=== PATIENT | female | born 1945 | race Caucasian/White ===

== ENCOUNTER 2016-03-19 09:42 | Inpatient (IN) | payer MEDICARE, BC ==
--- NOTE | 2016-03-19 14:31 | ED ---
Psych HPI - General Chief Complaint: Psychiatric Symptoms Stated Complaint: mental health Time Seen by Provider: 03/19/16 13:55 Source: patient, RN notes reviewed Mode of arrival: wheelchair - History of Present Illness Initial Comments: Patient is a 70-year-old female presents emergency room for psych evaluation. Patient states she has a history of "mental breakdowns". Patient states she is currently in the middle of having one. Patient states she called over to Dr. Bowen's office and she was advised to come to the emergency room for possible psych admission. Patient states she takes Abilify as directed and Seroquel at bedtime. Patient states she takes Ativan as needed. Patient states that she feels unsafe at home. Patient denies suicidal or homicidal ideations. Patient denies any medical history. Patient denies chest pain, shortness of breath, headache, dizziness, fevers, chills. - Related Data Home Medications Medication Instructions Recorded Confirmed Cholecalciferol [Vitamin D3] 5,000 unit PO DAILY 01/09/16 03/19/16 Enalapril [Vasotec] 20 mg PO DAILY 01/09/16 03/19/16 Furosemide [Lasix] 20 mg PO DAILY@1200 01/09/16 03/19/16 ARIPiprazole [Abilify] 10 mg PO DAILY 03/19/16 03/19/16 ARIPiprazole [Abilify] 15 mg PO HS 03/19/16 03/19/16 Sennosides-Docusate Sodium 1 tab PO BID 03/19/16 03/19/16 [Senokot-S] Previous Rx's Medication Instructions Recorded LORazepam [Ativan] 1 mg PO BID #60 tab 01/24/16 QUEtiapine FUMARATE [SEROquel] 600 mg PO HS #60 tablet 01/24/16 Allergies Allergy/AdvReac Type Severity Reaction Status Date / Time No Known Allergies Allergy Verified 03/19/16 14:43 Review of Systems ROS Statement: Those systems with pertinent positive or pertinent negative responses have been documented in the HPI. ROS Other: All systems not noted in ROS Statement are negative. Past Medical History Past Medical History: Hypertension History of Any Multi-Drug Resistant Organisms: None Reported Past Surgical History: No Surgical Hx Reported Past Psychological History: Anxiety, Depression Smoking Status: Never smoker Past Alcohol Use History: None Reported Past Drug Use History: None Reported General Exam - General Exam Comments Initial Comments: Sitting exam room, anxious. General appearance: alert, anxious Head exam: Present: atraumatic, normocephalic, normal inspection Eye exam: Present: normal appearance ENT exam: Present: normal exam Neck exam: Present: normal inspection Respiratory exam: Present: normal lung sounds bilaterally. Absent: respiratory distress Cardiovascular Exam: Present: normal rhythm, tachycardia, normal heart sounds Extremities exam: Present: normal inspection Back exam: Present: normal inspection Neurological exam: Present: alert, oriented X3 Psychiatric exam: Present: normal affect, anxious Expanded Focused psych exam: Present: paranoid, restlessness Skin exam: Present: warm, dry, intact, normal color. Absent: rash Course Vital Signs 03/19/16 03/19/16 03/19/16 10:00 17:10 18:37 Temperature 97.9 F 97.6 F 97.6 F Pulse Rate 105 H 93 75 Respiratory 16 16 16 Rate Blood Pressure 144/78 139/68 140/76 O2 Sat by Pulse 94 L 96 97 Oximetry Medical Decision Making - Medical Decision Making Patient is a 70-year-old female presents to the emergency room for evaluation. Labs show no acute findings. Patient denies any urinary symptoms. Will culture urine. Patient evaluated by psych and meets admission criteria. - Lab Data Result diagrams: 03/19/16 15:10 03/19/16 15:10 Lab Results 03/19/16 03/19/16 03/19/16 Range/Units 15:00 15:10 15:10 WBC 8.4 (3.8-10.6) k/uL RBC 4.15 (3.80-5.40) m/uL Hgb 12.2 (11.4-16.0) gm/dL Hct 36.5 (34.0-46.0) % MCV 88.0 (80.0-100.0) fL MCH 29.4 (25.0-35.0) pg MCHC 33.4 (31.0-37.0) g/dL RDW 15.0 (11.5-15.5) % Plt Count 310 (150-450) k/uL Neutrophils % 65 % Lymphocytes % 23 % Monocytes % 6 % Eosinophils % 2 % Basophils % 1 % Neutrophils # 5.4 (1.3-7.7) k/uL Lymphocytes # 1.9 (1.0-4.8) k/uL Monocytes # 0.5 (0-1.0) k/uL Eosinophils # 0.2 (0-0.7) k/uL Basophils # 0.1 (0-0.2) k/uL Sodium 143 (137-145) mmol/L Potassium 4.1 (3.5-5.1) mmol/L Chloride 107 (98-107) mmol/L Carbon Dioxide 23 (22-30) mmol/L Anion Gap 13 mmol/L BUN 10 (7-17) mg/dL Creatinine 0.80 (0.52-1.04) mg/dL Est GFR (MDRD) Af Amer >60 (>60 ml/min/1.73 sqM) Est GFR (MDRD) Non-Af >60 (>60 ml/min/1.73 sqM) Glucose 129 H (74-99) mg/dL Calcium 10.0 (8.4-10.2) mg/dL Total Bilirubin 0.7 (0.2-1.3) mg/dL AST 23 (14-36) U/L ALT 30 (9-52) U/L Alkaline Phosphatase 76 (38-126) U/L Total Protein 7.4 (6.3-8.2) g/dL Albumin 4.2 (3.5-5.0) g/dL Urine Color Yellow Urine Appearance Clear (Clear) Urine pH 6.0 (5.0-8.0) Ur Specific [place] 1.008 (1.001-1.035) Urine Protein Negative (Negative) Urine Glucose (UA) Negative (Negative) Urine Ketones Negative (Negative) Urine Blood Negative (Negative) Urine Nitrate Negative (Negative) Urine Bilirubin Negative (Negative) Urine Urobilinogen <2.0 (<2.0) mg/dL Ur Leukocyte Esterase Large H (Negative) Urine RBC (0-5) /hpf Urine WBC (0-5) /hpf Urine Mucus (None) /hpf Urine Opiates Screen Not Detected (NotDetected) Ur Oxycodone Screen Not Detected (NotDetected) Urine Methadone Screen Not Detected (NotDetected) Ur Propoxyphene Screen Not Detected (NotDetected) Ur Barbiturates Screen Not Detected (NotDetected) U Tricyclic Antidepress Not Detected (NotDetected) Ur Phencyclidine Scrn Not Detected (NotDetected) Ur Amphetamines Screen Not Detected (NotDetected) U Methamphetamines Scrn Not Detected (NotDetected) U Benzodiazepines Scrn Detected H (NotDetected) Urine Cocaine Screen Not Detected (NotDetected) U Marijuana (THC) Screen Not Detected (NotDetected) 03/19/16 Range/Units 17:50 WBC (3.8-10.6) k/uL RBC (3.80-5.40) m/uL Hgb (11.4-16.0) gm/dL Hct (34.0-46.0) % MCV (80.0-100.0) fL MCH (25.0-35.0) pg MCHC (31.0-37.0) g/dL RDW (11.5-15.5) % Plt Count (150-450) k/uL Neutrophils % % Lymphocytes % % Monocytes % % Eosinophils % % Basophils % % Neutrophils # (1.3-7.7) k/uL Lymphocytes # (1.0-4.8) k/uL Monocytes # (0-1.0) k/uL Eosinophils # (0-0.7) k/uL Basophils # (0-0.2) k/uL Sodium (137-145) mmol/L Potassium (3.5-5.1) mmol/L Chloride (98-107) mmol/L Carbon Dioxide (22-30) mmol/L Anion Gap mmol/L BUN (7-17) mg/dL Creatinine (0.52-1.04) mg/dL Est GFR (MDRD) Af Amer (>60 ml/min/1.73 sqM) Est GFR (MDRD) Non-Af (>60 ml/min/1.73 sqM) Glucose (74-99) mg/dL Calcium (8.4-10.2) mg/dL Total Bilirubin (0.2-1.3) mg/dL AST (14-36) U/L ALT (9-52) U/L Alkaline Phosphatase (38-126) U/L Total Protein (6.3-8.2) g/dL Albumin (3.5-5.0) g/dL Urine Color Yellow Urine Appearance Clear (Clear) Urine pH 6.0 (5.0-8.0) Ur Specific [place] 1.007 (1.001-1.035) Urine Protein Negative (Negative) Urine Glucose (UA) Negative (Negative) Urine Ketones Negative (Negative) Urine Blood Negative (Negative) Urine Nitrate Negative (Negative) Urine Bilirubin Negative (Negative) Urine Urobilinogen <2.0 (<2.0) mg/dL Ur Leukocyte Esterase Large H (Negative) Urine RBC <1 (0-5) /hpf Urine WBC 31 H (0-5) /hpf Urine Mucus Rare H (None) /hpf Urine Opiates Screen (NotDetected) Ur Oxycodone Screen (NotDetected) Urine Methadone Screen (NotDetected) Ur Propoxyphene Screen (NotDetected) Ur Barbiturates Screen (NotDetected) U Tricyclic Antidepress (NotDetected) Ur Phencyclidine Scrn (NotDetected) Ur Amphetamines Screen (NotDetected) U Methamphetamines Scrn (NotDetected) U Benzodiazepines Scrn (NotDetected) Urine Cocaine Screen (NotDetected) U Marijuana (THC) Screen (NotDetected) Disposition Clinical Impression: Schizophrenia Disposition: ADMITTED IP TO THIS [facility] Condition: Stable Decision Date: 03/19/16
[2016-03-19 15:23] LABS: Basophils # (A) 0.1 k/uL (0-0.2); Basophils % (A) 1 %; CH 29.5; CHCM 33.6; Eosinophils # (A) 0.2 k/uL (0-0.7); Eosinophils % (A) 2 %; HCT 36.5 % (34.0-46.0); HDW 2.48; HGB 12.2 gm/dL (11.4-16.0); Luc # (Auto) 0.22; Luc % (Auto) 3; Lymphocytes # (A) 1.9 k/uL (1.0-4.8); Lymphocytes % (A) 23 %; MCH 29.4 pg (25.0-35.0); MCHC 33.4 g/dL (31.0-37.0); Mean Platelet Volume 6.7; Monocytes # (A) 0.5 k/uL (0-1.0); Monocytes % (A) 6 %; Neutrophils # (A) 5.4 k/uL (1.3-7.7); Neutrophils % (A) 65 %; RBC 4.15 m/uL (3.80-5.40); WBC 8.4 k/uL (3.8-10.6); WBC (Perox) 8.33
[2016-03-19 15:34] LABS: ALT 30 U/L (9-52); AST 23 U/L (14-36); Alkaline Phosphatase 76 U/L (38-126); Anion Gap 13 mmol/L; Blood Urea Nitrogen 10 mg/dL (7-17); Carbon Dioxide 23 mmol/L (22-30); Chloride 107 mmol/L (98-107); Glucose 129 mg/dL (74-99); Non-African American GFR(MDRD) >60 (>60 ml/min/1.73 sqM); Potassium 4.1 mmol/L (3.5-5.1); Sodium 143 mmol/L (137-145); Total Bilirubin 0.7 mg/dL (0.2-1.3); Total Protein 7.4 g/dL (6.3-8.2)
[2016-03-19 15:55] LABS: Appearance,Urine Clear (Clear); Bilirubin,Urine Negative (Negative); Glucose,Urine (UA) Negative (Negative); Ketones,Urine Negative (Negative); Leukocyte Esterase,Urine Large (Negative); Nitrite,Urine Negative (Negative); Protein,Urine Negative (Negative); Specific Gravity,Urine 1.008 (1.001-1.035); UA Billing (MACRO vs. MICRO) MICRO; Urobilinogen,Urine <2.0 mg/dL (<2.0)
[2016-03-19 18:03] LABS: Appearance,Urine Clear (Clear); Bilirubin,Urine Negative (Negative); Glucose,Urine (UA) Negative (Negative); Ketones,Urine Negative (Negative); Leukocyte Esterase,Urine Large (Negative); Mucus,Urine Rare /hpf; Nitrite,Urine Negative (Negative); Particle Count 1776; Protein,Urine Negative (Negative); RBC,Urine <1 /hpf (0-5); Specific Gravity,Urine 1.007 (1.001-1.035); UA Billing (MACRO vs. MICRO) MICRO; Urobilinogen,Urine <2.0 mg/dL (<2.0); WBC,Urine 31 /hpf (0-5)
[2016-03-19] MEDS ORDERED: MAG HYDROX/AL HYDROX/SIMETH 30 ML CUP PO PRN (20:00)
[2016-03-19] MEDS ORDERED: ACETAMINOPHEN TAB 325 MG TAB PO PRN (20:00)
[2016-03-19] MEDS ORDERED: MAGNESIUM HYDROXIDE 2,400 MG/10 ML CUP PO PRN (20:00)
[2016-03-19] MEDS ORDERED: LORazepam 1 MG TAB PO PRN (20:02)
[2016-03-19] MEDS: SENNOSIDES-DOCUSATE SODIUM 1 EACH TAB PO SCH (20:54)
[2016-03-19] MEDS: amLODIPine 10 MG TAB PO SCH (20:54)
[2016-03-19] MEDS ORDERED: QUEtiapine 200 MG TAB PO SCH (21:00)
[2016-03-20] MEDS ORDERED: ARIPiprazole 15 MG TAB PO SCH (09:00)
[2016-03-20] MEDS: SENNOSIDES-DOCUSATE SODIUM 1 EACH TAB PO SCH ×2 (09:38→20:52)
[2016-03-20] MEDS: LISINOPRIL 20 MG TAB PO SCH ×2 (09:38→10:32)
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
[2016-03-20] MEDS ORDERED: ARIPiprazole 5 MG TAB PO ONE (09:53)
[2016-03-20] MEDS: CHOLECALCIFEROL 1,000 UNIT TAB PO SCH (12:08)
[2016-03-20] MEDS: FUROSEMIDE 20 MG TAB PO SCH (12:09)
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
[2016-03-20] MEDS: LEVOFLOXACIN 500 MG TAB PO SCH (15:12)
[2016-03-20] MEDS: TRIAMCINOLONE ACET 0.1% OINTMENT 15 GM TUBE TOPICAL SCH (20:52)
[2016-03-20] MEDS: amLODIPine 10 MG TAB PO SCH (20:52)
[2016-03-20] MEDS: QUEtiapine 400 MG TAB PO SCH (20:52)
[2016-03-21] MEDS ORDERED: ARIPiprazole 10 MG TAB PO SCH (09:00)
[2016-03-21] MEDS: SENNOSIDES-DOCUSATE SODIUM 1 EACH TAB PO SCH ×2 (09:06→20:41)
[2016-03-21] MEDS: LISINOPRIL 5 MG TAB PO SCH (09:06)
[2016-03-21] MEDS: TRIAMCINOLONE ACET 0.1% OINTMENT 15 GM TUBE TOPICAL SCH ×2 (09:07→21:09)
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
[2016-03-21] MEDS: CHOLECALCIFEROL 1,000 UNIT TAB PO SCH (12:49)
[2016-03-21] MEDS: FUROSEMIDE 20 MG TAB PO SCH (12:49)
[2016-03-21] MEDS: LEVOFLOXACIN 500 MG TAB PO SCH (14:48)
--- NOTE | 2016-03-21 18:04 | P.PN ---
Subjective This is a dictation on the progress note dated 03/21/2016, at mental health unit. Patient seen and evaluated in [id number] discussion, Her urine analysis showed increased white count however the culture so far no evidence of infection, we will continue the antibiotic until the final of the culture. Her blood pressure was fluctuated and the the trend to low blood pressure with the antipsychotic medication, we will decrease the amlodipine to 5 mg daily at bedtime. Patient seen and evaluated she is requesting to go home with the concerns of insurance however it is not valid request as patient need to be completely and psychiatrist cleared her to be going home as well as the transition social worker with the underlying paranoid schizophrenia with exacerbation. On the physical exam today Her HEENT was negative oropharynx normal, neck was supple no JVD no thyromegaly no lymphadenopathy. Chest was clear to auscultation and percussion no arrhythmias. Heart regular sinus rhythm. Abdomen is soft positive bowel sounds. Extremities right ankle and leg erythema chronically present and scab on the right ankle ulcer which was treated by vascular surgeon . Patient ambulatory using walker. Assessment her acute episode of exacerbation of schizophrenia and paranoid has not been completely resolved yet and she is followed by Dr. Pan psychiatrist and she is in the mental health unit. Hypotension: Medication adjusted and continue to be monitored. UTI currently on levofloxacin 500 mg once a day as Cipro not available in the hospital, so far waiting for the final culture currently negative for 18 hours. Objective - Vital Signs Vital signs: Vital Signs Temp 97.9 F 03/21/16 05:34 Pulse 100 03/21/16 05:34 Resp 20 03/21/16 05:34 BP 132/62 03/21/16 05:34 Pulse Ox 95 03/19/16 19:44 - Labs CBC & Chem 7: 03/19/16 15:10 03/19/16 15:10
[2016-03-21] MEDS: amLODIPine 10 MG TAB PO SCH (20:41)
[2016-03-21] MEDS: QUEtiapine 400 MG TAB PO SCH (20:41)
[2016-03-22] MEDS: SENNOSIDES-DOCUSATE SODIUM 1 EACH TAB PO SCH ×2 (09:27→20:27)
[2016-03-22] MEDS: LISINOPRIL 5 MG TAB PO SCH (09:27)
[2016-03-22] MEDS: TRIAMCINOLONE ACET 0.1% OINTMENT 15 GM TUBE TOPICAL SCH ×2 (09:28→20:29)
[2016-03-22] MEDS ORDERED: ARIPiprazole 10 MG TAB PO ONE (09:43)
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
[2016-03-22] MEDS: CHOLECALCIFEROL 1,000 UNIT TAB PO SCH (12:01)
[2016-03-22] MEDS: FUROSEMIDE 20 MG TAB PO SCH (12:02)
[2016-03-22] MEDS: LEVOFLOXACIN 500 MG TAB PO SCH (13:52)
[2016-03-22] MEDS: QUEtiapine 400 MG TAB PO SCH (20:27)
[2016-03-22] MEDS: amLODIPine 10 MG TAB PO SCH (20:27)
[2016-03-23] MEDS: SENNOSIDES-DOCUSATE SODIUM 1 EACH TAB PO SCH ×2 (08:15→21:11)
[2016-03-23] MEDS: LISINOPRIL 5 MG TAB PO SCH (08:15)
[2016-03-23] MEDS: ARIPiprazole 15 MG TAB PO SCH (08:15)
[2016-03-23] MEDS: TRIAMCINOLONE ACET 0.1% OINTMENT 15 GM TUBE TOPICAL SCH ×2 (08:16→21:13)
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
[2016-03-23 12:54] VITALS: BMI 28.8
[2016-03-23] MEDS: FUROSEMIDE 20 MG TAB PO SCH (13:10)
[2016-03-23] MEDS: CHOLECALCIFEROL 1,000 UNIT TAB PO SCH (13:10)
[2016-03-23] MEDS: LEVOFLOXACIN 500 MG TAB PO SCH (13:10)
[2016-03-23] MEDS: QUEtiapine 400 MG TAB PO SCH (21:11)
[2016-03-23] MEDS: amLODIPine 10 MG TAB PO SCH (21:11)
[2016-03-24] MEDS: LISINOPRIL 5 MG TAB PO SCH (09:10)
[2016-03-24] MEDS: ARIPiprazole 15 MG TAB PO SCH (09:10)
[2016-03-24] MEDS: TRIAMCINOLONE ACET 0.1% OINTMENT 15 GM TUBE TOPICAL SCH ×2 (09:10→20:44)
[2016-03-24] MEDS: SENNOSIDES-DOCUSATE SODIUM 1 EACH TAB PO SCH ×2 (09:10→20:44)
[2016-03-24] MEDS: CHOLECALCIFEROL 1,000 UNIT TAB PO SCH (13:50)
[2016-03-24] MEDS: FUROSEMIDE 20 MG TAB PO SCH (13:51)
[2016-03-24] MEDS: LEVOFLOXACIN 500 MG TAB PO SCH (13:56)
--- NOTE | 2016-03-24 14:53 | P.PN ---
Subjective This is a dictation on connor Min date of service 03/24/2016 progress note dictated by Dr. Jairo Paul [facility]. Patient seen and evaluated [id number], discussed with the patient that culture result was negative of her urine and will discontinue the levofloxacin and she received 4 tablets which is enough for the course. Her blood pressure has been stable 130/80 with the adjustment on the medication and decrease did the RICK inhibitor lisinopril/Vasotec/Zestril/Prinivil to 5 mg once a day prescription and send to [facility] with 90 tablets and 3 refills. No change in her other medication medically including the Lasix 20 mg daily as well as Norvasc 10 mg at at bedtime daily and that she had enough of these medication at home. Also she had that appointment at home as well. On exam she is comfortable ambulatory no evidence of dysuria or hematuria and she stated she just urinate and no problem, no cough or expectoration and no pain. Today stated that she is much better not seeing much of people no much of evidence of hallucination visual or auditory, and she wants to go home on March 26 and this stated that her brother will be common at noontime. Her HEENT negative normal oropharynx, pupil is equal reactive and good eye contact, neck was supple no lymphadenopathy. No thyromegaly. Chest clear to auscultation and percussion. Heart regular sinus rhythm. Abdomen is soft positive bowel sounds and no symptoms of constipation or diarrhea. Extremities she had chronic right ankle ulcer, and chronic dermatitis. No edema. Left lower extremities is normal. Blood flow and perfusion is normal. Patient ambulate with walker. Assessment: UTI on admission with the white count in the urine was present however the culture was negative and patient treated already with the Levaquin for 4 days and will be stopped the treatment at this time. #2 hypertension with hypertensive heart disease and fluctuation of the blood pressure currently stable was 130/80 on lisinopril 5 mg tablet daily with the use of her home medication l Norvasc, Lasix. #3 acute episode exacerbation of schizophrenia paranoid type. #4 severe anxiety disorder. Plan: Patient in the mental health unit and the under care of Dr. Pan, her psychiatric medication will be rendered by Dr. Pan. I did send her new prescription to [facility], lisinopril 5 mg daily 90 tablets with 3 refills. Also discontinued her levofloxacin today. Patient will be ready for any discharge possibility by Saturday when the psychiatric evaluation indicate for discharge from the medical point of view patient is currently stable. Objective - Vital Signs Vital signs: Vital Signs Temp 98.2 F 03/24/16 02:46 Pulse 84 03/24/16 09:11 Resp 18 03/24/16 09:11 BP 130/80 03/24/16 09:11 Pulse Ox 98 03/23/16 08:13 Intake & Output 03/23/16 03/24/16 03/24/16 18:59 06:59 18:59 Weight 86.183 kg - Labs CBC & Chem 7: 03/19/16 15:10 03/19/16 15:10
--- NOTE | 2016-03-24 16:07 | P.PN ---
Progress Note - Text Interval history: Patient seen in cross coverage today for Dr. Pan. She seems to reports that see if sleeping and eating well. She talks about being seen by Dr. Gill today. She makes reference to being off of her antibiotic and 1 of her blood pressure medications being decreased. She makes reference to being discharged on Saturday. She does not seem to voice any adverse psychotropic medication side effects. Mental status exam: She is alert and cooperative with the interview. Her speech is fluent somewhat rapid at times. She is somewhat repetitive at times. She describes her mood as happy. She does not verbalize any thoughts of harm to self or others. She does not verbalize any hallucinations. She does not show any significant agitation. Plan: We'll maintain current psychotropic medications. Monitor for any medication side effects. We'll continue to cover this patient for Dr. Pan through the weekend.
[2016-03-24] MEDS: amLODIPine 10 MG TAB PO SCH (20:43)
[2016-03-24] MEDS: QUEtiapine 400 MG TAB PO SCH (20:44)
[2016-03-25] MEDS: LISINOPRIL 5 MG TAB PO SCH (08:55)
[2016-03-25] MEDS: ARIPiprazole 15 MG TAB PO SCH (08:55)
[2016-03-25] MEDS: SENNOSIDES-DOCUSATE SODIUM 1 EACH TAB PO SCH ×2 (08:56→20:11)
[2016-03-25] MEDS: TRIAMCINOLONE ACET 0.1% OINTMENT 15 GM TUBE TOPICAL SCH ×2 (08:56→20:12)
--- NOTE | 2016-03-25 11:38 | P.PN ---
Progress Note - Text Interval history: Patient seen in cross coverage today for Dr. Pan. She reports that she did sleep last night and is eating. She does not voice any adverse psychotropic medication side effects, she makes reference to having had a nervous breakdown in the past. She appears agreeable to taking a shower today , the staff were preparing for her. Mental status exam: She is alert and cooperative with the interview. Her affect is slightly restricted. She denies any thoughts of harm to self or others. Her mood overall seems to be improved. She denies any paranoid thoughts, relays that nobody is going to hurt her. She denies any hallucinations. She does perseverate at the end of the session to some degree regarding her medication changes from a medical standpoint. Plan: We'll maintain current psychotropic medication regimen at this time. Continue to monitor for any medication side effects. Dr. Pan to resume care of this patient starting tomorrow.
[2016-03-25] MEDS: CHOLECALCIFEROL 1,000 UNIT TAB PO SCH (12:16)
[2016-03-25] MEDS: FUROSEMIDE 20 MG TAB PO SCH (12:17)
[2016-03-25 12:20] VITALS: RESP 18
[2016-03-25] MEDS: amLODIPine 10 MG TAB PO SCH (20:11)
[2016-03-25] MEDS: QUEtiapine 400 MG TAB PO SCH (20:12)
[2016-03-26 06:22] VITALS: TEMP 98.2
[2016-03-26] MEDS: TRIAMCINOLONE ACET 0.1% OINTMENT 15 GM TUBE TOPICAL SCH (08:36)
[2016-03-26] MEDS: ARIPiprazole 15 MG TAB PO SCH (08:36)
[2016-03-26] MEDS: SENNOSIDES-DOCUSATE SODIUM 1 EACH TAB PO SCH (08:36)
[2016-03-26] MEDS: LISINOPRIL 5 MG TAB PO SCH (08:36)
[2016-03-26 08:41] VITALS: BP 114/59; PULSE 79
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
[2016-03-26] MEDS: FUROSEMIDE 20 MG TAB PO SCH (12:01)
[2016-03-26] MEDS: CHOLECALCIFEROL 1,000 UNIT TAB PO SCH (12:01)
[2016-03-26] MEDS ORDERED: QUEtiapine 100 MG TAB PO SCH (21:00)
== END 2016-03-26 12:29 | disposition home or self-care (01) | DRG 885 ==
LOC: EEVIPCON 09:42 → EC 09:42 → 3MHU 18:29
PROVIDERS: ADMIT Psychiatry & Neurology Psychiatry; ATTEND Psychiatry & Neurology Psychiatry
DX: F20.0 Paranoid schizophrenia (principal); N39.0 Urinary tract infection, site not specified; I95.9 Hypotension, unspecified; I11.9 Hypertensive heart disease without heart failure; I87.2 Venous insufficiency (chronic) (peripheral); E66.9 Obesity, unspecified; G47.00 Insomnia, unspecified; L30.9 Dermatitis, unspecified; F32.9 Major depressive disorder, single episode, unspecified; F41.9 Anxiety disorder, unspecified; Z68.29 Body mass index [BMI] 29.0-29.9, adult; Z79.899 Other long term (current) drug therapy
CPT/HCPCS: 36415; 80053; 80306; 81001; 82075; 85025; 87086; 99285

== ENCOUNTER 2016-03-30 11:26 | Emergency (ER) | payer MEDICARE, BC ==
[2016-03-30 11:34] VITALS: RESP 20
--- NOTE | 2016-03-30 12:03 | ED ---
General Adult HPI - General Chief complaint: Psychiatric Symptoms Stated complaint: MENTAL HEALTH Time Seen by Provider: 03/30/16 11:53 Source: patient, RN notes reviewed Mode of arrival: ambulatory Limitations: no limitations - History of Present Illness Initial comments: Patient 70-year-old female who presents emergency room today with a chief complaint of needing a mental health evaluation. She states she was told by her psychiatrist that she could come here to the emergency room to be evaluated. She states she's had increased paranoid thoughts. States she's been taking her medications of Seroquel and Abilify at home as prescribed. Patient denies any suicidal or homicidal thoughts or plans. Denies any auditory or visual hallucinations. Denies any other physical complaints. Patient denies any recent fever, chills, shortness of breath, chest pain, back pain, abdominal pain, nausea or vomiting, numbness or tingling, dysuria or hematuria, constipation or diarrhea, headaches or visual changes, or any other complaints. - Related Data Home Medications Medication Instructions Recorded Confirmed Cholecalciferol [Vitamin D3] 5,000 unit PO DAILY 01/09/16 03/30/16 Furosemide [Lasix] 20 mg PO DAILY@1200 01/09/16 03/30/16 Sennosides-Docusate Sodium 1 tab PO BID 03/19/16 03/30/16 [Senokot-S] Triamcinolone 0.1% Ointment 1 applic TOPICAL BID PRN 03/30/16 03/30/16 [Kenalog 0.1% Ointment] Previous Rx's Medication Instructions Recorded LORazepam [Ativan] 1 mg PO BID #60 tab 01/24/16 Lisinopril [Zestril] 5 mg PO DAILY #90 tab 03/24/16 ARIPiprazole [Abilify] 30 mg PO DAILY #30 tab 03/26/16 QUEtiapine FUMARATE [SEROquel] 300 mg PO HS #30 tab 03/26/16 amLODIPine [Norvasc] 10 mg PO HS tab 03/26/16 Sulfamethox-Tmp 800-160Mg [Bactrim 1 tab PO Q12HR #20 tab 03/30/16 DS 800-160 mg] Allergies Allergy/AdvReac Type Severity Reaction Status Date / Time No Known Allergies Allergy Verified 03/30/16 12:17 Review of Systems ROS Statement: Those systems with pertinent positive or pertinent negative responses have been documented in the HPI. ROS Other: All systems not noted in ROS Statement are negative. Past Medical History Past Medical History: Hypertension History of Any Multi-Drug Resistant Organisms: None Reported Past Surgical History: No Surgical Hx Reported Past Psychological History: Anxiety, Depression Smoking Status: Never smoker Past Alcohol Use History: None Reported Past Drug Use History: None Reported General Exam - General Exam Comments Initial Comments: General: The patient is awake and alert, in no distress, and does not appear acutely ill. Eye: Pupils are equal, round and reactive to light, extra-ocular movements are intact. No nystagmus. There is normal conjunctiva bilaterally. No signs of icterus. Ears, nose, mouth and throat: There are moist mucous membranes and no oral lesions. Neck: The neck is supple, there is no tenderness or JVD. Cardiovascular: There is a regular rate and rhythm. No murmur, rub or gallop is appreciated. Respiratory: Lungs are clear to auscultation, respirations are non-labored, breath sounds are equal. No wheezes, stridor, rales, or rhonchi. Musculoskeletal: Normal ROM, no tenderness. Strength 5/5. Sensation intact. Pulses equal bilaterally 2+. Neurological: A&O x 3. CN II-XII intact, There are no obvious motor or sensory deficits. Coordination appears grossly intact. Speech is normal. Skin: Skin is warm and dry and no rashes or lesions are noted. Psychiatric: Cooperative, appropriate mood & affect, normal judgment. Limitations: no limitations Course Vital Signs 03/30/16 11:29 Temperature 96 F L Pulse Rate 118 H Respiratory 20 Rate Blood Pressure 124/97 O2 Sat by Pulse 97 Oximetry Medical Decision Making - Medical Decision Making Patient reexamined at this time shows no signs of distress. Mental health has seen the patient and discussed it with both on-call psychiatrist and her personal psychiatrist Dr. Pan. They state that she can follow-up in the office with Dr. Pan on Saturday. She does have an appointment. Patient's been updated of this. Her labs been reviewed and does show mildly elevated BUN/ creatinine. Patient drank lots of fluids here the emergency room. Patient's urinalysis does show urinary tract infection. Will be started on antibiotics. Advised follow-up family doctor for repeat urinalysis. Patient states understanding of this time and is in agreement with this plan. - Lab Data Result diagrams: 03/30/16 12:14 03/30/16 12:14 Lab Results 03/30/16 03/30/16 03/30/16 Range/Units 12:14 12:14 12:41 WBC 6.6 (3.8-10.6) k/uL RBC 3.97 (3.80-5.40) m/uL Hgb 11.7 (11.4-16.0) gm/dL Hct 34.9 (34.0-46.0) % MCV 87.9 (80.0-100.0) fL MCH 29.3 (25.0-35.0) pg MCHC 33.4 (31.0-37.0) g/dL RDW 15.1 (11.5-15.5) % Plt Count 262 (150-450) k/uL Neutrophils % 66 % Lymphocytes % 21 % Monocytes % 8 % Eosinophils % 1 % Basophils % 1 % Neutrophils # 4.3 (1.3-7.7) k/uL Lymphocytes # 1.4 (1.0-4.8) k/uL Monocytes # 0.6 (0-1.0) k/uL Eosinophils # 0.1 (0-0.7) k/uL Basophils # 0.1 (0-0.2) k/uL Sodium 137 (137-145) mmol/L Potassium 3.4 L (3.5-5.1) mmol/L Chloride 101 (98-107) mmol/L Carbon Dioxide 24 (22-30) mmol/L Anion Gap 12 mmol/L BUN 21 H (7-17) mg/dL Creatinine 1.20 H (0.52-1.04) mg/dL Est GFR (MDRD) Af Amer 54 (>60 ml/min/1.73 sqM) Est GFR (MDRD) Non-Af 44 (>60 ml/min/1.73 sqM) Glucose 138 H (74-99) mg/dL Calcium 9.8 (8.4-10.2) mg/dL Total Bilirubin 1.1 (0.2-1.3) mg/dL AST 23 (14-36) U/L ALT 31 (9-52) U/L Alkaline Phosphatase 71 (38-126) U/L Total Protein 7.1 (6.3-8.2) g/dL Albumin 4.2 (3.5-5.0) g/dL Urine Color Yellow Urine Appearance Turbid H (Clear) Urine pH 5.5 (5.0-8.0) Ur Specific [place] 1.019 (1.001-1.035) Urine Protein 1+ H (Negative) Urine Glucose (UA) Negative (Negative) Urine Ketones Negative (Negative) Urine Blood Negative (Negative) Urine Nitrate Negative (Negative) Urine Bilirubin Negative (Negative) Urine Urobilinogen <2.0 (<2.0) mg/dL Ur Leukocyte Esterase Large H (Negative) Urine WBC >182 H (0-5) /hpf Ur Squamous Epith Cells 14 H (0-4) /hpf Urine Bacteria Occasional H (None) /hpf Urine Mucus Many H (None) /hpf Urine Opiates Screen Not Detected (NotDetected) Ur Oxycodone Screen Not Detected (NotDetected) Urine Methadone Screen Not Detected (NotDetected) Ur Propoxyphene Screen Not Detected (NotDetected) Ur Barbiturates Screen Not Detected (NotDetected) U Tricyclic Antidepress Detected H (NotDetected) Ur Phencyclidine Scrn Not Detected (NotDetected) Ur Amphetamines Screen Not Detected (NotDetected) U Methamphetamines Scrn Not Detected (NotDetected) U Benzodiazepines Scrn Not Detected (NotDetected) Urine Cocaine Screen Not Detected (NotDetected) U Marijuana (THC) Screen Not Detected (NotDetected) Serum Alcohol <10 mg/dL Disposition Clinical Impression: UTI (urinary tract infection), Paranoia Disposition: HOME SELF-CARE Condition: Good Instructions: Urinary Tract Infection in Women (ED) Additional Instructions: Please follow-up with your psychiatrist Dr. Pan Saturday with scheduled appointment as discussed. Please use antibiotic as prescribed and follow-up the family doctor for repeat urinalysis. Please return here to emergency room if any symptoms increase or worsen or for any other concerns. Prescriptions: Sulfamethox-Tmp 800-160Mg [Bactrim DS 800-160 mg] 1 tab PO Q12HR #20 tab Time of Disposition: 14:47
[2016-03-30 12:29] LABS: Basophils # (A) 0.1 k/uL (0-0.2); Basophils % (A) 1 %; CH 29.8; Eosinophils # (A) 0.1 k/uL (0-0.7); Eosinophils % (A) 1 %; HCT 34.9 % (34.0-46.0); HDW 2.45; HGB 11.7 gm/dL (11.4-16.0); Luc # (Auto) 0.18; Luc % (Auto) 3; Lymphocytes # (A) 1.4 k/uL (1.0-4.8); Lymphocytes % (A) 21 %; MCH 29.3 pg (25.0-35.0); MCHC 33.4 g/dL (31.0-37.0); MCV 87.9 fL (80.0-100.0); Mean Platelet Volume 6.6; Monocytes # (A) 0.6 k/uL (0-1.0); Monocytes % (A) 8 %; Neutrophils # (A) 4.3 k/uL (1.3-7.7); Neutrophils % (A) 66 %; RBC 3.97 m/uL (3.80-5.40); RDW 15.1 % (11.5-15.5); WBC 6.6 k/uL (3.8-10.6); WBC (Perox) 7.08
[2016-03-30 12:47] LABS: ALT 31 U/L (9-52); AST 23 U/L (14-36); Alcohol <10 mg/dL; Alkaline Phosphatase 71 U/L (38-126); Anion Gap 12 mmol/L; Blood Urea Nitrogen 21 mg/dL (7-17); Calcium 9.8 mg/dL (8.4-10.2); Carbon Dioxide 24 mmol/L (22-30); Chloride 101 mmol/L (98-107); Glucose 138 mg/dL (74-99); Non-African American GFR(MDRD) 44 (>60 ml/min/1.73 sqM); Potassium 3.4 mmol/L (3.5-5.1); Sodium 137 mmol/L (137-145); Total Bilirubin 1.1 mg/dL (0.2-1.3); Total Protein 7.1 g/dL (6.3-8.2)
[2016-03-30 13:03] LABS: Appearance,Urine Turbid (Clear); Bacteria,Urine Occasional /hpf; Bilirubin,Urine Negative (Negative); Glucose,Urine (UA) Negative (Negative); Ketones,Urine Negative (Negative); Leukocyte Esterase,Urine Large (Negative); Mucus,Urine Many /hpf; Nitrite,Urine Negative (Negative); PH, Urine 5.5 (5.0-8.0); Particle Count 71546; Protein,Urine 1+ (Negative); Specific Gravity,Urine 1.019 (1.001-1.035); Squamous Epithelial Cell,Urine 14 /hpf (0-4); UA Billing (MACRO vs. MICRO) MICRO; Urobilinogen,Urine <2.0 mg/dL (<2.0); WBC,Urine >182 /hpf (0-5)
[2016-03-30] MEDS ORDERED: SODIUM CHLORIDE 0.9% 500 ML IV STA (13:16)
[2016-03-30 17:33] VITALS: BP 110/68; PULSE 100; TEMP 98
== END 2016-03-30 15:00 | disposition home or self-care (01) ==
LOC: EC 11:26
DX: N39.0 Urinary tract infection, site not specified (principal); F22 Delusional disorders; Z79.899 Other long term (current) drug therapy
CPT/HCPCS: 36415; 80053; 80306; 80320; 81001; 82075; 85025; 87086; 93005; 99284

== ENCOUNTER → 2017-11-14 | Outpatient (CLI) | payer MEDICARE, BC ==
[2017-11-14 12:04] LABS: Basophils # (A) 0.1 k/uL (0-0.2); Basophils % (A) 1 %; Eosinophils # (A) 0.1 k/uL (0-0.7); Eosinophils % (A) 3 %; HCT 37.3 % (34.0-46.0); HGB 12.4 gm/dL (11.4-16.0); Lymphocytes # (A) 1.5 k/uL (1.0-4.8); Lymphocytes % (A) 30 %; MCH 31.7 pg (25.0-35.0); MCHC 33.3 g/dL (31.0-37.0); MCV 95.1 fL (80.0-100.0); Mean Platelet Volume 7.4; Monocytes # (A) 0.3 k/uL (0-1.0); Monocytes % (A) 6 %; Neutrophils # (A) 2.9 k/uL (1.3-7.7); Neutrophils % (A) 57 %; Platelet Count 230 k/uL (150-450); RBC 3.92 m/uL (3.80-5.40); RDW 12.7 % (11.5-15.5)
[2017-11-14 12:14] LABS: ALT 28 U/L (9-52); AST 21 U/L (14-36); Albumin 4.5 g/dL (3.5-5.0); Alkaline Phosphatase 74 U/L (38-126); Anion Gap 9 mmol/L; Blood Urea Nitrogen 19 mg/dL (7-17); C Reactive Protein <5.0 mg/L (<10.0); Carbon Dioxide 27 mmol/L (22-30); Chloride 106 mmol/L (98-107); Cholesterol 193 mg/dL (<200); Creatine Kinase 50 U/L (30-135); Glucose 102 mg/dL (74-99); HDL Cholesterol 97 mg/dL (40-60); LDL Cholesterol,Calculated 85 mg/dL (0-99); Potassium 4.3 mmol/L (3.5-5.1); Sodium 142 mmol/L (137-145); Total Bilirubin 0.7 mg/dL (0.2-1.3); Total Protein 7.4 g/dL (6.3-8.2); Triglycerides 57 mg/dL (<150)
[2017-11-14 12:25] LABS: T4, Free (Free Thyroxine) 0.68 ng/dL (0.78-2.19)
[2017-11-14 15:29] LABS: Erythrocyte Sedimentation Rate 8 mm/hr (0-20)
== END | disposition home or self-care (01) ==
LOC: LABWHC1 10:35
PROVIDERS: ATTEND Internal Medicine
DX: D64.9 Anemia, unspecified (principal); E55.9 Vitamin D deficiency, unspecified; E78.5 Hyperlipidemia, unspecified; I10 Essential (primary) hypertension; E03.9 Hypothyroidism, unspecified
CPT/HCPCS: 36415; 80053; 80061; 82306; 82550; 83735; 84439; 84443; 85025; 85652; 86140

== ENCOUNTER 2018-06-14 08:28 | Inpatient (IN) | payer MEDICARE, BC ==
[2018-06-14] MEDS ORDERED: SODIUM CHLORIDE 0.9% 500 ML 500 ML IV STA (08:34)
[2018-06-14] MEDS ORDERED: SODIUM CHLORIDE 0.9% 1,000 ML IV STA ×2 (08:34→10:33)
--- NOTE | 2018-06-14 08:51 | ED ---
Fall HPI - General Stated Complaint: fall Time Seen by Provider: 06/14/18 08:28 Source: patient, EMS, RN notes reviewed - History of Present Illness Initial Comments: This is a 72-year-old female who is brought in by EMS for evaluation after she was found on the floor where she laid on the right. She stated that she could not get herself up into her bed and slid off the bed onto the floor she lay on her left side most of the evening. She initially complain some left shoulder pain has none now at this time she denies any head neck or back pain. No fevers chills nausea vomiting sweats no other symptoms no focal deficits. She was slow to respond to questioning per paramedics. MD Complaint: fall, other - Related Data Home Medications Medication Instructions Recorded Confirmed Enalapril [Vasotec] 20 mg PO DAILY 01/09/18 06/14/18 Benztropine Mesylate 0.5 mg PO TID 06/14/18 06/14/18 Cephalexin [Keflex] 500 mg PO TID 06/14/18 06/14/18 Haloperidol [Haldol] 5 mg PO DAILY 06/14/18 06/14/18 Allergies Allergy/AdvReac Type Severity Reaction Status Date / Time No Known Allergies Allergy Verified 06/14/18 10:31 Review of Systems ROS Statement: Those systems with pertinent positive or pertinent negative responses have been documented in the HPI. ROS Other: All systems not noted in ROS Statement are negative. Past Medical History Past Medical History: Hypertension History of Any Multi-Drug Resistant Organisms: None Reported Past Surgical History: No Surgical Hx Reported Past Psychological History: Anxiety, Depression Smoking Status: Never smoker Past Alcohol Use History: None Reported Past Drug Use History: None Reported General Exam - General Exam Comments Initial Comments: This is a well-developed sec appearing female who is awake alert oriented 3 but somewhat lethargic she does demonstrate a Kishor Coma Scale of 15 at this time General appearance: alert, in no apparent distress Head exam: Present: atraumatic, normocephalic, normal inspection Eye exam: Present: normal appearance, PERRL, EOMI. Absent: scleral icterus, conjunctival injection, periorbital swelling ENT exam: Present: mucous membranes dry Neck exam: Present: normal inspection, full ROM, other (No stridor JVD or bruits). Absent: tenderness, meningismus, lymphadenopathy Respiratory exam: Present: normal lung sounds bilaterally. Absent: respiratory distress, wheezes, rales, rhonchi, stridor Cardiovascular Exam: Present: regular rate, normal rhythm, normal heart sounds. Absent: systolic murmur, diastolic murmur, rubs, gallop, clicks GI/Abdominal exam: Present: soft, normal bowel sounds. Absent: distended, tenderness, guarding, rebound, rigid Extremities exam: Present: full ROM, normal capillary refill, other (Small area of ecchymosis noted over the posterior left shoulder no step-off no crepitation). Absent: tenderness, pedal edema, joint swelling, calf tenderness Back exam: Present: normal inspection Neurological exam: Present: alert, oriented X3, CN II-XII intact Psychiatric exam: Present: normal affect, normal mood Skin exam: Present: warm, dry, intact, normal color. Absent: rash Course Vital Signs 06/14/18 06/14/18 06/14/18 08:51 09:00 09:30 Temperature 98.2 F Pulse Rate 77 70 64 Respiratory 18 12 14 Rate Blood Pressure 108/73 108/73 108/64 O2 Sat by Pulse 99 99 99 Oximetry 06/14/18 10:00 Temperature Pulse Rate 61 Respiratory 14 Rate Blood Pressure 118/67 O2 Sat by Pulse 100 Oximetry Medical Decision Making - Medical Decision Making The patient and family who is currently not present I did discuss the case with Dr. Amaya who is covering for Dr. Gill. Patient be admitted for IV fluids renal consultation due to the rhabdomyolysis. - Lab Data Result diagrams: 06/14/18 08:45 06/14/18 08:45 Lab Results 06/14/18 06/14/18 06/14/18 Range/Units 08:45 08:45 08:45 WBC 8.2 (3.8-10.6) k/uL RBC 4.25 (3.80-5.40) m/uL Hgb 13.5 (11.4-16.0) gm/dL Hct 39.4 (34.0-46.0) % MCV 92.8 (80.0-100.0) fL MCH 31.8 (25.0-35.0) pg MCHC 34.3 (31.0-37.0) g/dL RDW 12.7 (11.5-15.5) % Plt Count 223 (150-450) k/uL Neutrophils % 71 % Lymphocytes % 19 % Monocytes % 6 % Eosinophils % 1 % Basophils % 0 % Neutrophils # 5.9 (1.3-7.7) k/uL Lymphocytes # 1.5 (1.0-4.8) k/uL Monocytes # 0.5 (0-1.0) k/uL Eosinophils # 0.1 (0-0.7) k/uL Basophils # 0.0 (0-0.2) k/uL Sodium 139 (137-145) mmol/L Potassium 3.6 (3.5-5.1) mmol/L Chloride 101 (98-107) mmol/L Carbon Dioxide 32 H (22-30) mmol/L Anion Gap 6 mmol/L BUN 19 H (7-17) mg/dL Creatinine 0.70 (0.52-1.04) mg/dL Est GFR (CKD-EPI)AfAm >90 (>60 ml/min/1.73 sqM) Est GFR (CKD-EPI)NonAf 86 (>60 ml/min/1.73 sqM) Glucose 102 H (74-99) mg/dL Calcium 9.3 (8.4-10.2) mg/dL Magnesium 1.8 (1.6-2.3) mg/dL Total Bilirubin 1.3 (0.2-1.3) mg/dL AST 293 H (14-36) U/L ALT 111 H (9-52) U/L Alkaline Phosphatase 59 (38-126) U/L Total Creatine Kinase 9862 H* (30-135) U/L CK-MB (CK-2) 68.3 H (0.0-2.4) ng/mL CK-MB (CK-2) Rel Index Troponin I 0.029 (0.000-0.034) ng/mL Total Protein 6.8 (6.3-8.2) g/dL Albumin 4.1 (3.5-5.0) g/dL Urine Color Urine Appearance (Clear) Urine pH (5.0-8.0) Ur Specific [place] (1.001-1.035) Urine Protein (Negative) Urine Glucose (UA) (Negative) Urine Ketones (Negative) Urine Blood (Negative) Urine Nitrite (Negative) Urine Bilirubin (Negative) Urine Urobilinogen (<2.0) mg/dL Ur Leukocyte Esterase (Negative) Urine RBC (0-5) /hpf Urine WBC (0-5) /hpf Ur Squamous Epith Cells (0-4) /hpf Hyaline Casts (0-2) /lpf Urine Mucus (None) /hpf 06/14/18 Range/Units 10:15 WBC (3.8-10.6) k/uL RBC (3.80-5.40) m/uL Hgb (11.4-16.0) gm/dL Hct (34.0-46.0) % MCV (80.0-100.0) fL MCH (25.0-35.0) pg MCHC (31.0-37.0) g/dL RDW (11.5-15.5) % Plt Count (150-450) k/uL Neutrophils % % Lymphocytes % % Monocytes % % Eosinophils % % Basophils % % Neutrophils # (1.3-7.7) k/uL Lymphocytes # (1.0-4.8) k/uL Monocytes # (0-1.0) k/uL Eosinophils # (0-0.7) k/uL Basophils # (0-0.2) k/uL Sodium (137-145) mmol/L Potassium (3.5-5.1) mmol/L Chloride (98-107) mmol/L Carbon Dioxide (22-30) mmol/L Anion Gap mmol/L BUN (7-17) mg/dL Creatinine (0.52-1.04) mg/dL Est GFR (CKD-EPI)AfAm (>60 ml/min/1.73 sqM) Est GFR (CKD-EPI)NonAf (>60 ml/min/1.73 sqM) Glucose (74-99) mg/dL Calcium (8.4-10.2) mg/dL Magnesium (1.6-2.3) mg/dL Total Bilirubin (0.2-1.3) mg/dL AST (14-36) U/L ALT (9-52) U/L Alkaline Phosphatase (38-126) U/L Total Creatine Kinase (30-135) U/L CK-MB (CK-2) (0.0-2.4) ng/mL CK-MB (CK-2) Rel Index Troponin I (0.000-0.034) ng/mL Total Protein (6.3-8.2) g/dL Albumin (3.5-5.0) g/dL Urine Color Yellow Urine Appearance Cloudy H (Clear) Urine pH 6.0 (5.0-8.0) Ur Specific [place] 1.017 (1.001-1.035) Urine Protein Trace H (Negative) Urine Glucose (UA) Negative (Negative) Urine Ketones 1+ H (Negative) Urine Blood Small H (Negative) Urine Nitrite Negative (Negative) Urine Bilirubin Negative (Negative) Urine Urobilinogen <2.0 (<2.0) mg/dL Ur Leukocyte Esterase Negative (Negative) Urine RBC 5 (0-5) /hpf Urine WBC 5 (0-5) /hpf Ur Squamous Epith Cells <1 (0-4) /hpf Hyaline Casts 19 H (0-2) /lpf Urine Mucus Moderate H (None) /hpf - EKG Data -: EKG Interpreted by Mn EKG shows normal: sinus rhythm (Sinus rhythm rate is 75. Interval 148 QRS duration 72 QT since QTC of 14/466 old anterior changes no acute ST-T wave changes this is correlated with the EKG submitted by paramedics.) - Radiology Data Radiology results: report reviewed (I did review the imaging and report no acute findings.), image reviewed Disposition Clinical Impression: Rhabdomyolysis, Dehydration, Fall Disposition: ADMITTED IP TO THIS HOSP Condition: Fair Referrals: dAi Gill MD [Primary Care Provider] - 1-2 days
[2018-06-14 08:59] LABS: Basophils % (A) 0 %; Eosinophils # (A) 0.1 k/uL (0-0.7); Eosinophils % (A) 1 %; HCT 39.4 % (34.0-46.0); HGB 13.5 gm/dL (11.4-16.0); Lymphocytes # (A) 1.5 k/uL (1.0-4.8); Lymphocytes % (A) 19 %; MCH 31.8 pg (25.0-35.0); MCHC 34.3 g/dL (31.0-37.0); MCV 92.8 fL (80.0-100.0); Mean Platelet Volume 7.4; Monocytes # (A) 0.5 k/uL (0-1.0); Monocytes % (A) 6 %; Neutrophils # (A) 5.9 k/uL (1.3-7.7); Neutrophils % (A) 71 %; Platelet Count 223 k/uL (150-450); RBC 4.25 m/uL (3.80-5.40); RDW 12.7 % (11.5-15.5); WBC 8.2 k/uL (3.8-10.6)
[2018-06-14 09:07] LABS: ALT 111 U/L (9-52); AST 293 U/L (14-36); Albumin 4.1 g/dL (3.5-5.0); Alkaline Phosphatase 59 U/L (38-126); Anion Gap 6 mmol/L; Blood Urea Nitrogen 19 mg/dL (7-17); Calcium 9.3 mg/dL (8.4-10.2); Carbon Dioxide 32 mmol/L (22-30); Chloride 101 mmol/L (98-107); Glucose 102 mg/dL (74-99); Magnesium 1.8 mg/dL (1.6-2.3); Potassium 3.6 mmol/L (3.5-5.1); Sodium 139 mmol/L (137-145); Total Bilirubin 1.3 mg/dL (0.2-1.3); Total Protein 6.8 g/dL (6.3-8.2)
--- NOTE | 2018-06-14 09:21 | CT ---
EXAMINATION TYPE: CT brain wo con DATE OF EXAM: 06/14/2018 COMPARISON: None HISTORY: 72-year-old female with pain and altered mental status TECHNIQUE: Examination was done in axial plane without intravenous contrast. Coronal and sagittal r econstructions performed. CT DLP: 1052.4 mGycm Automated exposure control for dose reduction was used. FINDINGS: There is no evidence of acute intracranial hemorrhage, acute ischemic changes, mass, mass-effect, or extra-axial fluid collection. There is no effacement of cerebral sulci or basal subarachnoid cister ns. There is no hydrocephalus. There is no midline shift. Wasserman-white matter distinction is preserv ed. Mild cerebral cortical volume loss. Atherosclerotic calcifications in the carotid siphons. Paranasal sinuses and mastoid air cells well pneumatized. Orbits and globes are intact. IMPRESSION: No acute intracranial abnormality seen.
[2018-06-14 09:29] LABS: Creatine Kinase MB 68.3 ng/mL (0.0-2.4); Troponin I 0.029 ng/mL (0.000-0.034)
--- NOTE | 2018-06-14 09:40 | XR ---
EXAMINATION TYPE: XR chest 2V DATE OF EXAM: 06/14/2018 COMPARISON: 01/09/2018 HISTORY: 72-year-old female with cough and fall TECHNIQUE: AP and lateral views FINDINGS: Heart normal size. Mild elongation thoracic aorta. Mild hyperinflation may relate to depth of inspira tion. Some strandy atelectasis right lower lung. No arabella consolidation or pleural effusion. IMPRESSION: Hyperinflation may relate to depth of inspiration or underlying emphysema. No definite acute process.
[2018-06-14 10:28] LABS: Appearance,Urine Cloudy (Clear); Bilirubin,Urine Negative (Negative); Blood,Urine Small (Negative); Color,Urine Yellow; Glucose,Urine (UA) Negative (Negative); Hyaline Casts,Urine 19 /lpf (0-2); Ketones,Urine 1+ (Negative); Leukocyte Esterase,Urine Negative (Negative); Mucus,Urine Moderate /hpf; Nitrite,Urine Negative (Negative); Protein,Urine Trace (Negative); RBC,Urine 5 /hpf (0-5); Specific Gravity,Urine 1.017 (1.001-1.035); Squamous Epithelial Cell,Urine <1 /hpf (0-4); Urobilinogen,Urine <2.0 mg/dL (<2.0)
[2018-06-14] MEDS ORDERED: NALOXONE 0.4 MG/ML 1 ML VIAL IV PRN (11:07)
[2018-06-14] MEDS ORDERED: SODIUM CHLORIDE 0.9% 1,000 ML IV SCH ×2 (11:15→14:00)
[2018-06-14] MEDS ORDERED: HEPARIN SODIUM,PORCINE 5,000 UNIT/ML 1 ML VIAL IV ONE (14:43)
--- NOTE | 2018-06-14 14:44 | P.NPCON ---
History of Present Illness - Reason for Consult Consult date: 06/14/18 acute renal failure - Chief Complaint Rhabdomyolysis - History of Present Illness This is a 72-year-old female who is brought in by EMS because of if fall on to the floor from her bed and she was immobilized for a few hours. She was seen in consultation because of an elevated CK of 9000 range. Her creatinine is normal but her urine output is not very well documented She is somewhat difficult to get a history from. She denies taking any nonsteroidals, alcohol or drug abuse She seems to have be having some tremors. Her home medication include a lateral cephalexin Haldol and benztropine. She denies any shortness of breath cough fever chills nausea vomiting headache diarrhea abdominal pain dysuria frequency or hematuria Past Medical History Past Medical History: Hypertension History of Any Multi-Drug Resistant Organisms: None Reported Past Surgical History: No Surgical Hx Reported Past Psychological History: Anxiety, Depression Smoking Status: Never smoker Past Alcohol Use History: None Reported Past Drug Use History: None Reported Medications and Allergies Home Medications Medication Instructions Recorded Confirmed Type Enalapril [Vasotec] 20 mg PO DAILY 01/09/18 06/14/18 History Benztropine Mesylate 0.5 mg PO TID 06/14/18 06/14/18 History Cephalexin [Keflex] 500 mg PO TID 06/14/18 06/14/18 History Haloperidol [Haldol] 5 mg PO DAILY 06/14/18 06/14/18 History Allergies Allergy/AdvReac Type Severity Reaction Status Date / Time No Known Allergies Allergy Verified 06/14/18 10:31 Physical Exam Vitals: Vital Signs Temp Pulse Resp BP Pulse Ox 06/14/18 10:00 61 14 118/67 100 06/14/18 09:30 64 14 108/64 99 06/14/18 09:00 70 12 108/73 99 06/14/18 08:51 98.2 F 77 18 108/73 99 Intake and Output 06/13/18 06/14/18 06/14/18 22:59 06:59 14:59 Intake Total 600 Balance 600 Intake: Intake, IV Titration 200 Amount Sodium Chloride 0.9% 1, 200 000 ml @ 100 mls/hr IV . Q10H [facility] Rx#:[id number] Oral 400 Other: Weight 44.633 kg On exam she is awake alert oriented. Poor memory unable to give any details of why she fell or how it happened but states that she slipped from the bed. No history of losing consciousness. She said she could not move. HEENT exam no JVP lymphadenopathy neck is supple no facial asymmetry Lungs are clear to auscultation good air entry bilaterally Heart sounds are unremarkable for any murmur rub gallop Abdomen soft nontender no organomegaly status masses Extremity exam was trace edema Neurologically awake alert oriented 3 but poor memory. Moves all her extremities but profoundly weak. Results - Lab Results Most recent lab results Calcium 9.3 mg/dL (8.4-10.2) 06/14/18 08:45 Magnesium 1.8 mg/dL (1.6-2.3) 06/14/18 08:45 06/14/18 08:45 06/14/18 08:45 Assessment and Plan Assessment: Impression 1. Rhabdomyolysis, CK is 9862, after of fall from the bed onto the floor and immobilize for unclear reason. UA shows trace protein, and 1+ blood. There are 5 RBCs. Creatinine is 0.7 urine output is unclear no evidence currently of myoglobinuria renal failure. 2. History of fall cause not very clear. 3. DVT in the right side just now diagnosed on Doppler 4. Mild liver dysfunction total bilirubin to 1.3 AST 293, and AST is 111. 5. History of psych disorder on medication Recommendation 1. Maintain aggressive hydration with IV normal saline at 150 mL an hour. 2. Check bladder scan and insert Gamble if greater than 400 mL as IV need good urine output measurement as M vigorously hydrating her. 3. Recheck CK in about 2 hours 8 hours from the previous months. 4. Check calcium phosphorus uric acid magnesium. 5. Will monitor closely intake and output and renal function as well as CK
--- NOTE | 2018-06-14 15:18 | US ---
EXAMINATION TYPE: US venous doppler duplex LE BI DATE OF EXAM: 06/14/2018 2:42 PM COMPARISON: NONE CLINICAL HISTORY: 72-year-old female bilateral swelling . SIDE PERFORMED: Bilateral TECHNIQUE: The lower extremity deep venous system is examined utilizing real time linear array sonog radhika with graded compression, doppler sonography and color-flow sonography. FINDINGS: VESSELS IMAGED: External Iliac Vein (EIV) Common Femoral Vein Deep Femoral Vein Greater Saphenous Vein * Femoral Vein Popliteal Vein Small Saphenous Vein * Proximal Calf Veins (* superficial vessels) Monitoring Analyst notes:Technical limitations - patient uncooperative - unable to rotate right leg into a dequate position Right Leg: +positive for DVT femoral vein extending into popliteal vein Left Leg: No evidence of DVT as visualized, patient unable to tolerate compression at lower femoral vein IMPRESSION: 1. Technical limitations as above. 2. Right lower extremity positive for DVT within the femoral vein extending down into the popliteal v ein. 3. No evidence for DVT within the left lower extremity imaged from the groin to the upper calf.
[2018-06-14 15:58] LABS: Partial Thromboplastin Time 22.8 sec (22.0-30.0); Prothrombin Time 10.6 sec (9.0-12.0)
[2018-06-14 16:03] LABS: Basophils % (A) 1 %; Eosinophils # (A) 0.1 k/uL (0-0.7); Eosinophils % (A) 1 %; HCT 34.2 % (34.0-46.0); HGB 11.5 gm/dL (11.4-16.0); Lymphocytes # (A) 1.6 k/uL (1.0-4.8); Lymphocytes % (A) 20 %; MCH 31.2 pg (25.0-35.0); MCHC 33.5 g/dL (31.0-37.0); MCV 93.2 fL (80.0-100.0); Mean Platelet Volume 7.7; Monocytes # (A) 0.7 k/uL (0-1.0); Monocytes % (A) 9 %; Neutrophils # (A) 5.1 k/uL (1.3-7.7); Neutrophils % (A) 67 %; Platelet Count 207 k/uL (150-450); RBC 3.67 m/uL (3.80-5.40); RDW 13.3 % (11.5-15.5); WBC 7.7 k/uL (3.8-10.6)
--- NOTE | 2018-06-14 16:07 | HP ---
HISTORY AND PHYSICAL DATE OF ADMISSION: 06/14/2018 This is a 72-year-old white female who is a patient of Dr. Rivera and she is being admitted by me as I am covering Dr. Gill this weekend. This is a 72-year-old white female who was brought to the emergency room by EMS and she was found to be lying on the floor and apparently she fell from the bed and was not able to get up and get back to the bed by herself. In the ER, she denied any headache. She had some pain in her extremities, but that also subsided while she was in the ER. Her CT scan of the head did not show any acute intracranial abnormality. Her chest x- ray showed hyperinflation but there is no definite acute process. EKG showed normal sinus rhythm and there was no acute changes. CBC showed a WBC count of 8.2, hemoglobin 13.5, platelet count 223,000. BUN 19, creatinine 0.70, and sodium 139, potassium 3.6, glucose 102, and CK 9862. Troponin 0.029. Urinalysis negative. The patient was found to be dehydrated and extremely weak and she was admitted to the hospital for further evaluation and treatment. PAST MEDICAL HISTORY: Her past medical history reveals that she is known to have hypertensive cardiovascular disease and also has history of psychiatric problems and she has been seeing Dr. Pan. She is on Haldol 5 mg p.o. daily. She is also on enalapril 20 mg daily, it is 6 benztropine mesylate 0.5 mg p.o. t.i.d. She lives in an assisted living place. ALLERGIES: She has no known drug allergies. She does not smoke and she does not drink alcohol. FAMILY HISTORY: Positive for heart disease, stroke, diabetes and high blood pressure. REVIEW OF SYSTEM: The patient denies any headache and she has no fever or chills and has tremor of the extremities and also has some impairment of the speech possibly because of the tremor. I have discussed this with the patient's brother. He told that the patient has complications of Haldol, which is causing these tremors and speech impairment, and this is not a new problem. Her appetite has been good. Bowels regular. She denies any chest pain. She has no cough. She has no abdominal pain. She has no polyuria or dysuria. She has no other neurological symptoms. PHYSICAL EXAMINATION: Physical examination reveals a 72-year-old white female, extremely weak, dehydrated, and she has tremor of the extremities and also some impairment of the speech, possibly due to the tremor and there is no jaundice. There is no generalized lymphadenopathy. There are no petechia or bruises. Temperature 98.2, pulse of 78 per minute, respirations 18 per minute, blood pressure 108/73, oxygen saturation 99. The patient is alert and oriented. She is extremely weak and dehydrated. EXAMINATION OF THE ENT: Negative. Neck is supple. There is no jugular venous distention. There is no goiter and there is no carotid bruit. Heart is in sinus rhythm. Lungs are clear to auscultation and percussion. Abdomen is soft and nontender. There is no mass palpable. Examination of the lower extremities reveals bilateral pitting edema. Neurologic examination does not reveal any localizing signs. IMPRESSION: 1. Rhabdomyolysis. 2. Dehydration. 3. History of fall. 4. Hypertensive cardiovascular disease. 5. Psychiatric problem, possibly anxiety and nervousness. 6. Tremor with slight impairment of her speech. 7. Edema of the lower extremities. PLAN: Patient will be admitted to the hospital. Give IV fluids to correct the dehydration and will get Nephrology consultation because of rhabdomyolysis. We will also get a venous Doppler to rule out DVT. Will consult the soil science teacher and also get psychiatry consultation. Prognosis is guarded. The diagnosis, prognosis and therapeutic plans were discussed in detail with the patient and I also discussed with her brother. Her brother also told her tremor and her slight speech impairment are due to some complication of the Haldol and she is following with psychiatrist, Dr. Pan for psychiatric problems. MMODL / IJN: [id number] /
[2018-06-14 16:10] LABS: Magnesium 1.7 mg/dL (1.6-2.3); Phosphorus 2.8 mg/dL (2.5-4.5); Uric Acid 4.4 mg/dL (3.7-7.4)
[2018-06-14] MEDS: HEPARIN SOD,PORK IN 0.45% NACL 25,000 UNIT in 0.45% NACL 1 250ML.BAG IV SCH (17:16)
[2018-06-14] MEDS: CEPHALEXIN 500 MG CAP PO SCH ×2 (17:31→19:49)
[2018-06-14] MEDS: BENZTROPINE MESYLATE 0.5 MG TAB PO SCH ×2 (17:31→19:49)
[2018-06-14] MEDS: SODIUM CHLORIDE 0.9% 1,000 ML IV SCH ×2 (18:16→19:50)
[2018-06-15] MEDS: HEPARIN SODIUM,PORCINE 5,000 UNIT/ML 1 ML VIAL IV PRN (00:57)
[2018-06-15] MEDS: SODIUM CHLORIDE 0.9% 1,000 ML IV SCH ×3 (05:58→20:03)
[2018-06-15 08:36] LABS: Basophils # (A) 0.1 k/uL (0-0.2); Basophils % (A) 1 %; Eosinophils # (A) 0.1 k/uL (0-0.7); Eosinophils % (A) 2 %; HCT 30.6 % (34.0-46.0); HGB 10.3 gm/dL (11.4-16.0); Lymphocytes # (A) 1.6 k/uL (1.0-4.8); Lymphocytes % (A) 24 %; MCH 31.4 pg (25.0-35.0); MCHC 33.7 g/dL (31.0-37.0); Monocytes # (A) 0.5 k/uL (0-1.0); Monocytes % (A) 8 %; Neutrophils # (A) 4.3 k/uL (1.3-7.7); Neutrophils % (A) 64 %; Platelet Count 176 k/uL (150-450); RBC 3.29 m/uL (3.80-5.40); RDW 13.8 % (11.5-15.5); WBC 6.7 k/uL (3.8-10.6)
[2018-06-15] MEDS: LISINOPRIL 20 MG TAB PO SCH (10:09)
[2018-06-15] MEDS: HALOPERIDOL 5 MG TAB PO SCH (10:09)
[2018-06-15] MEDS: CEPHALEXIN 500 MG CAP PO SCH ×3 (10:09→21:14)
[2018-06-15] MEDS: BENZTROPINE MESYLATE 0.5 MG TAB PO SCH ×3 (10:09→21:14)
[2018-06-15 11:06] LABS: Anion Gap 1 mmol/L; Blood Urea Nitrogen 21 mg/dL (7-17); Calcium 8.1 mg/dL (8.4-10.2); Carbon Dioxide 27 mmol/L (22-30); Chloride 111 mmol/L (98-107); Glucose 113 mg/dL (74-99); Potassium 3.7 mmol/L (3.5-5.1); Sodium 139 mmol/L (137-145)
--- NOTE | 2018-06-15 12:12 | CT ---
EXAMINATION TYPE: CT chest angio for PE DATE OF EXAM: 06/15/2018 COMPARISON: None HISTORY: 72 year-old female shortness of breath, PE TECHNIQUE: Contiguous axial scanning of the chest performed with IV Contrast, patient injected with 1 00 mL of Isovue 370. Coronal/sagittal MIP reconstructions performed. CT DLP: 312 mGycm Automated exposure control for dose reduction was used. FINDINGS: Heart normal size without pericardial effusion. No flattening of the interventricular septum reflux o f contrast into the hepatic veins. Mild coronary vessel calcifications. Ascending aorta is ectatic at 3.8 cm. Conventional arch vessel branching anatomy. Suggestion of mild diffuse anasarca-type change. Satisfactory opacification of the pulmonary arterial system. No evidence for pulmonary embolus. No thoracic lymphadenopathy by CT size criteria. Multisequence bronchial wall thickening, diffuse septal lines, and trace bilateral pleural effusions with adjacent dependent atelectasis. Small hiatal hernia. Visualized upper abdomen otherwise shows no gross abnormality. Bones: Endplate spondylosis mid to lower thoracic spine. IMPRESSION: 1. NO EVIDENCE FOR PULMONARY EMBOLUS. 2. TRACE PLEURAL EFFUSIONS, MILD DIFFUSE ANASARCA-TYPE CHANGE, AND DIFFUSE SEPTAL LINES. CORRELATE FO R MILD CHF OR FLUID OVERLOAD STATE WITH PULMONARY VASCULAR CONGESTION. 3. SMALL HIATAL HERNIA.
[2018-06-15 13:05] VITALS: BMI 17.7
--- NOTE | 2018-06-15 14:13 | P.PN ---
Subjective Progress Note Date: 06/15/18 Principal diagnosis: This 72-year-old female is seen because of rhabdomyolysis without any myoglobinuria kidney injury. Her CK was in the 90,000 range but has come down to the 7000 range. Urine analysis shows small blood and 5 RBCs. Creatinine is normal urine output - 887 and 80 mL for the last 24 hour shifts. Patient is unable to give any good history History of Present Illness This is a 72-year-old female who is brought in by EMS because of if fall on to the floor from her bed and she was immobilized for a few hours. She was seen in consultation because of an elevated CK of 9000 range. Her creatinine is normal but her urine output is not very well documented She is somewhat difficult to get a history from. She denies taking any nonsteroidals, alcohol or drug abuse She seems to have be having some tremors. Her home medication include a lateral cephalexin Haldol and benztropine. She denies any shortness of breath cough fever chills nausea vomiting headache diarrhea abdominal pain dysuria frequency or hematuria Objective - Vital Signs Vital signs: Vital Signs Temp 98.0 F 06/15/18 12:36 Pulse 70 06/15/18 12:36 Resp 18 06/15/18 12:36 BP 108/61 06/15/18 12:36 Pulse Ox 93 L 06/15/18 12:36 Intake & Output 06/14/18 06/15/18 06/15/18 18:59 06:59 18:59 Intake Total 600 63.067 89.189 Output Total 380 400 Balance 220 -336.933 89.189 Weight 44.633 kg 49.895 kg Intake: Intake, IV Titration 200 63.067 89.189 Amount Heparin Sod,Pork in 0.45% 63.067 89.189 NaCl 25,000 unit In 0.45 % NaCl 1 250ml.bag @ 18 UNITS/KG/HR 8.034 mls/hr IV .Q24H [facility] Rx#: [id number] Sodium Chloride 0.9% 1, 200 000 ml @ 100 mls/hr IV . Q10H [facility] Rx#:[id number] Oral 400 Output: Urine 350 400 Post Void Residual 30 Other: Voiding Method Bedpan Bedpan # Voids 0 On exam she is awake alert oriented. Poor memory unable to give any details of why she fell or how it happened but states that she slipped from the bed. No history of losing consciousness. She said she could not move. HEENT exam no JVP lymphadenopathy neck is supple no facial asymmetry Lungs are clear to auscultation good air entry bilaterally Heart sounds are unremarkable for any murmur rub gallop Abdomen soft nontender no organomegaly status masses Extremity exam was trace edema Neurologically awake alert oriented 3 but poor memory. Moves all her extremities but profoundly weak. - Labs CBC & Chem 7: 06/15/18 07:59 06/15/18 07:59 Labs: Abnormal Lab Results - Last 24 Hours (Table) 06/14/18 06/14/18 06/14/18 Range/Units 15:31 15:31 23:17 RBC 3.67 L (3.80-5.40) m/uL Hgb (11.4-16.0) gm/dL Hct (34.0-46.0) % APTT 32.7 H (22.0-30.0) sec Chloride (98-107) mmol/L BUN (7-17) mg/dL Glucose (74-99) mg/dL Calcium (8.4-10.2) mg/dL Creatine Kinase 7724 H* (30-135) U/L 06/15/18 06/15/18 06/15/18 Range/Units 07:59 07:59 07:59 RBC 3.29 L (3.80-5.40) m/uL Hgb 10.3 L (11.4-16.0) gm/dL Hct 30.6 L (34.0-46.0) % APTT 74.5 H (22.0-30.0) sec Chloride 111 H (98-107) mmol/L BUN 21 H (7-17) mg/dL Glucose 113 H (74-99) mg/dL Calcium 8.1 L (8.4-10.2) mg/dL Creatine Kinase (30-135) U/L Assessment and Plan Assessment: Impression 1. Rhabdomyolysis, CK is 9862, after a fall from the bed onto the floor and immobilize for unclear reason. UA shows trace protein, and 1+ blood. There are 5 RBCs. Creatinine is 0.7 urine output is unclear no evidence currently of myoglobinuria renal failure. Total CK decreased to 7724 as of yesterday none available today he did creatinine is 0.67 and normal electrolytes. 2. History of fall cause not very clear. 3. DVT in the right side just now diagnosed on Doppler 4. Mild liver dysfunction total bilirubin to 1.3 AST 293, and AST is 111. 5. History of psych disorder on medication Recommendation 1. Maintain aggressive hydration with IV normal saline at 150 mL an hour. 2. Recheck CK today 4. Will monitor closely intake and output and renal function as well as CK
[2018-06-15] MEDS: HEPARIN SOD,PORK IN 0.45% NACL 25,000 UNIT in 0.45% NACL 1 250ML.BAG IV SCH (19:05)
--- NOTE | 2018-06-15 19:50 | PN ---
PROGRESS NOTE DATE OF SERVICE: 06/15/2018 This is a 72-year-old white female who was found lying on the floor and was brought to the emergency room by the EMS and the patient apparently fell from the bed and was not able to get up by herself. In the ER, her CK was markedly elevated and she was still extremely weak and lethargic and she was admitted to the hospital with the diagnosis of rhabdomyolysis and dehydration. The patient was placed back on her previous home medications. She has been on Haldol by her psychiatrist, Dr. Pan, but the patient has had some side effects of tremor and some speech impairment and so a psychiatric consultation has been requested. She had a edema of the both lower extremities and a venous Doppler has been done and this showed that the right leg was positive for DVT of the femoral vein extending into the popliteal vein. There was no DVT in the left leg. The patient has been is started on heparin and we will also get a CT angio to rule out pulmonary embolism. The patient has also been seen by mannequin wig maker in consultation with regards to the rhabdomyolysis. Her PCP is Dr. Gill and he will be back tomorrow and he will assume care of the patient starting tomorrow. MMODL / IJN: [id number] /
--- NOTE | 2018-06-16 05:05 | CONS ---
CONSULTATION DATE OF SERVICE: 06/15/2018. PURPOSE FOR CONSULTATION: Evaluate for antipsychotic medications. HISTORY OF PRESENTING ILLNESS: It is noted that I did not see the patient today, though I reviewed the chart and discussed the case with nursing. The patient was admitted to the medical floor after being found at home. She had suffered a fall on the night before and apparently laid on her floor all night. She was brought to the hospital by EMS. She is noted to have an elevated CK and has a diagnosis of rhabdomyolysis and dehydration. According to nursing, the concern relating to the psychiatric consultation was that the patient had a noticeable tremor in her head and jaw all and there was a question raised as to whether she could be taken off Haldol. The progress note of Dr. Concepcion indicates that the patient sees Dr. Pan on an outpatient basis. Currently, the patient is receiving Haldol 5 mg a day and Cogentin 0.5 mg 3 times a day as her only psychotropic medications. I discussed with nursing that given that the patient is followed on outpatient basis by Dr. Pan and that Dr. Pan will be in the morning, the patient would be best served to have Dr. Pan review her medications in regards to questions of movement disorder as well as issues related to possible changes in medication. I will forward this note to Dr. Pan. MMCASSL / IJN: [id number] /
[2018-06-16 08:24] LABS: Basophils # (A) 0.1 k/uL (0-0.2); Basophils % (A) 1 %; Eosinophils # (A) 0.1 k/uL (0-0.7); Eosinophils % (A) 2 %; HCT 33.2 % (34.0-46.0); HGB 10.9 gm/dL (11.4-16.0); Lymphocytes # (A) 1.2 k/uL (1.0-4.8); Lymphocytes % (A) 20 %; MCH 31.6 pg (25.0-35.0); MCHC 32.8 g/dL (31.0-37.0); MCV 96.3 fL (80.0-100.0); Mean Platelet Volume 7.8; Monocytes # (A) 0.4 k/uL (0-1.0); Monocytes % (A) 6 %; Neutrophils # (A) 4.2 k/uL (1.3-7.7); Neutrophils % (A) 69 %; Platelet Count 185 k/uL (150-450); RBC 3.45 m/uL (3.80-5.40); RDW 13.3 % (11.5-15.5); WBC 6.1 k/uL (3.8-10.6)
--- NOTE | 2018-06-16 08:35 | P.PN ---
Subjective Patient is seen in follow-up for rhabdomyolysis which has been improving. She is off IV fluids at this time. Oral intake has been good. Denies chest pain or shortness of breath. GFR at baseline. Vital signs are stable. General: The patient appeared well nourished and normally developed. HEENT: Head exam is unremarkable. Neck is without jugular venous distension. LUNGS: Lungs are clear to auscultation and percussion. Breath sounds decreased. HEART: Rate and Rhythm are regular. First and second heart sounds normal. No murmurs, rubs or gallops. ABDOMEN: Abdominal exam reveals normal bowel sounds. Non-tender and non- distended. No evidence of peritonitis. EXTREMITITES: No clubbing, cyanosis, or edema. Objective - Vital Signs Vital signs: Vital Signs Temp 98 F 06/16/18 05:58 Pulse 69 06/16/18 05:58 Resp 16 06/16/18 05:58 BP 129/67 06/16/18 05:58 Pulse Ox 98 06/16/18 05:58 Intake & Output 06/15/18 06/16/18 06/16/18 18:59 06:59 18:59 Intake Total 1689.189 247.225 Output Total 300 Balance 1389.189 247.225 Weight 49.895 kg Intake: Intake, IV Titration 1089.189 247.225 Amount Heparin Sod,Pork in 0.45% 89.189 87.225 NaCl 25,000 unit In 0.45 % NaCl 1 250ml.bag @ 18 UNITS/KG/HR 8.034 mls/hr IV .Q24H RICHIE Rx#: [id number] Sodium Chloride 0.9% 1, 1000 160 000 ml @ 150 mls/hr IV . Q6H40M RICHIE Rx#:[id number] Oral 600 Output: Urine 300 Other: Voiding Method Bedpan Bedpan # Voids 2 3 - Labs CBC & Chem 7: 06/16/18 07:53 06/15/18 07:59 Labs: Abnormal Lab Results - Last 24 Hours (Table) 06/15/18 06/15/18 06/15/18 Range/Units 07:59 07:59 07:59 RBC 3.29 L (3.80-5.40) m/uL Hgb 10.3 L (11.4-16.0) gm/dL Hct 30.6 L (34.0-46.0) % APTT 74.5 H (22.0-30.0) sec Chloride 111 H (98-107) mmol/L BUN 21 H (7-17) mg/dL Glucose 113 H (74-99) mg/dL Calcium 8.1 L (8.4-10.2) mg/dL Creatine Kinase (30-135) U/L 06/15/18 06/16/18 06/16/18 Range/Units 07:59 07:53 07:53 RBC 3.45 L (3.80-5.40) m/uL Hgb 10.9 L (11.4-16.0) gm/dL Hct 33.2 L (34.0-46.0) % APTT 42.8 H (22.0-30.0) sec Chloride (98-107) mmol/L BUN (7-17) mg/dL Glucose (74-99) mg/dL Calcium (8.4-10.2) mg/dL Creatine Kinase 2611 H* (30-135) U/L Assessment and Plan Plan: Assessment: 1. Rhabdomyolysis secondary to immobility. Improved with IV hydration. CK levels trending down. 2. Right lower extremity DVT maintained on IV heparin. 3. Benign hypertension. Controlled. Plan: Start normal saline at 50 mL an hour. Encourage oral intake. Hold lisinopril for systolic blood pressure less than 120. Repeat CK level today and again in the morning.
[2018-06-16] MEDS: BENZTROPINE MESYLATE 0.5 MG TAB PO SCH ×3 (08:43→21:19)
[2018-06-16] MEDS: CEPHALEXIN 500 MG CAP PO SCH ×2 (08:43→18:19)
[2018-06-16] MEDS: SODIUM CHLORIDE 0.9% 1,000 ML IV SCH (08:43)
[2018-06-16] MEDS: HALOPERIDOL 5 MG TAB PO SCH (08:44)
[2018-06-16] MEDS: LISINOPRIL 20 MG TAB PO SCH (08:44)
[2018-06-16] MEDS: HEPARIN SODIUM,PORCINE 5,000 UNIT/ML 1 ML VIAL IV PRN (08:59)
--- NOTE | 2018-06-16 15:31 | P.CN ---
Psychiatric Consult - . Consult date: 06/16/18 Consult:: 06/16/18 14:05 tremor and head neck and consideration of removing Haldol Assessment and Plan Assessment: This is a 72-year-old female who is brought in by EMS for evaluation after she was found on the floor where she laid on the right. She stated that she could not get herself up into her bed and slid off the bed onto the floor she lay on her left side most of the evening. She initially complain some left shoulder pain has none now at this time she denies any head neck or back pain. No fevers chills nausea vomiting sweats no other symptoms no focal deficits. She was slow to respond to questioning per paramedics. MD Complaint: fall, other - Related Data Home Medications Medication Instructions Recorded Confirmed Enalapril [Vasotec] 20 mg PO DAILY 01/09/18 06/14/18 Benztropine Mesylate 0.5 mg PO TID 06/14/18 06/14/18 Cephalexin [Keflex] 500 mg PO TID 06/14/18 06/14/18 Haloperidol [Haldol] 5 mg PO DAILY 06/14/18 06/14/18 Allergies Allergy/AdvReac Type Severity Reaction Status Date / Time No Known Allergies Allergy Verified 06/14/18 10:31 Past Medical History Past Medical History: Hypertension History of Any Multi-Drug Resistant Organisms: None Reported Past Surgical History: No Surgical Hx Reported Past Psychological History: Anxiety, Depression Smoking Status: Never smoker Past Alcohol Use History: None Reported Past Drug Use History: None Reported History of present illness: This 72-year-old female with chronic schizophrenia who has rhabdomyolysis and was asked to reconsult regarding use of Haldol and his chronic schizophrenic who has tremor in her head and jaw. Discussed discuss the case with Dr. Bowen this morning recommending keeping patient on Haldol and increasing Cogentin to 1 mg 3 times a day but aptient refuses. PAST PSYCHIATRIC HISTORY: The patient has had numerous inpatient psychiatric admissions the last one was in December 2015. She is currently on Seroquel 600 mg at bedtime Abilify 15 mg daily Ativan 1 mg twice daily. She has been on Haldol the past and possibly Risperdal. She had significant extrapyramidal symptoms with Haldol. No history of suicide attempts. PMH: Hypertension, possible urinary tract infection ALLERGIES: NO KNOWN DRUG ALLERGIES MEDICATIONS: Lasix Norvasc vitamin D Zestril CHEMICAL DEPENDENCY HISTORY: No use of alcohol marijuana or other illicit drugs. She has never been placed in residential treatment for chemical dependency reasons FAMILY PSYCHIATRIC HISTORY: None reported, no suicides in the family FAMILY CHEMICAL DEPENDENCY HISTORY: Reported SOCIAL HISTORY: The patient is 70 years old she single she has never been and she has no children. She currently resides at [facility]. She has a brother who is supportive. She continues to pay her own bills and up until recently was still driving. She graduated high school and earned a bachelor's from [employer] no history of service. Financially she is secure as there was an inheritance that helps cover her expenses. No legal history no history of violence. No abuse history. She is not employed. Musculoskeletal Examination - Abnormal/Involuntary Movements: [ tremors, tics] Strength: [greater than antigravity (greater than/equal to 3/5) in all extremities, weakness:] Muscle Tone: [ dystonia Gait: [ wide-based] Station: [ unsteady] mental status examination: This is a 72-year-old email was seen lying in bed with his noticeable tremors of mouth and neck. She looks older than her stated age. Her speech and language her slow monotone soft. She has no trouble expressing herself. Attitude and behaviors cooperative. Mood is euthymic. Affect is restricted due to EPS. Orientation person place and situation. Thought content within normal. Risk factors she denies suicidal or homicidal ideation. Perception within normal. Thought process goal oriented somewhat concrete and presentation and wants to be independent. Concentration 10 tension slightly impaired per observation and interview with the patient. Recent remote memory within normal. Intelligence average. Judgment and insight fair she really needs placement in a group home facility or assisted living. Do not stop her Haldol or change her dose she is stable on. Stable Psychiatric impression: Chronic schizophrenic stable on Haldol and refuses to take an increase of Cogentin. Physically degenerating and needs placement in SNIF or skilled facility Thank you for the consult Iraj Walls D.O. PhD (1) Schizophrenia Current Visit: No Status: Acute Priority: High Code(s): F20.9 - SCHIZOPHRENIA, UNSPECIFIED SNOMED Code(s): 45554032 Time with Patient: Less than 30
--- NOTE | 2018-06-16 17:45 | PN ---
PROGRESS NOTE ADDENDUM: DATE OF SERVICE: 06/16/2018 Patient I discussed with her that she is going to be on the heparin at this time and then will switch is to subsequently Eliquis depend on her current problem if the insurance will pay for it. Meanwhile, the patient I did talk to Mr. Min her brother, who is the caregiver in detail on the phone and explained to him that the patient's condition and loss of weight, currently with the DVT of the right leg and ability to eat. Encouragement to us to see if we need to the patient had to be institution as to be in [facility] or other institution. Mr. Min, the brother and caregiver, he stated that he is agreeable for [facility] and he will be also talking to the social studies department chair and discharge planning and will be put in the order for that. After significant discussion found that this is the best for the patient as well as Dr. Walls, the psychiatrist stated the same, that the patient needs to be in a skilled facility for further care and watching her and feeding her and to get her in the home, as well as for rehabilitation as she become now bending over with the kyphosis and needs significant rehab. MMCASSL / IJN: [id number] /
--- NOTE | 2018-06-16 18:10 | PN ---
PROGRESS NOTE DATE OF SERVICE: 06/16/2018 DATA: FULL CODE. Her height is 5 feet 6 inches, weight 49.895 kg. BSA 1.55 m2. BMI 17.8 kg/m2. ALLERGIES UNKNOWN. This patient was admitted to the hospital on the weekend in my temporary absence by Dr. Jamey Amaya and is subsequently followed by me. On admission it was found that the patient had fallen down beside the bed. She could not recall the event clearly. They found that she had rhabdomyolysis. Subsequently they found that she also had right leg DVT by venous Doppler study. The venous Doppler study indicated that her right leg was positive for DVT of the femoral vein that extended to the popliteal vein. There was no evidence of DVT in the left leg. That was done on admission, 06/14/2018. In the ER on admission her EKG was found to show normal sinus rhythm, with the EKG interpreted as an anterior infarct, undetermined, with the abnormal EKG. Her chest x-ray showed hyperinflation and could be underlying emphysema. However, the patient never smoked in the past. The patient also had a CT scan of the brain with the underlying confusion and past history of schizophrenia with paranoia. However, patient could be bipolar and depressed as well. CT scan showed no acute intracranial abnormality. In the emergency room at that time she was seen by Dr. Melvin Bravo after being brought by EMS, having been found on the floor and lying on her right side; however, when I examined her the bruises were on the left side of the face. She stated that she could not get herself up into the bed and she slid off the bed onto the floor and she was lying on her left side most of the evening. This makes sense, because the bruises were on the left facial side. She initially complained of left shoulder pain, which has resolved. She denied any headache or back pain in the ER. No fever, no chills. No nausea, no vomiting. She responded to questions, per the admin prog coord as noted in the ER dictation. They stated also that she had anxiety, depression. On my examination, the patient has had a significant loss of weight; more than 50% of her weight. On this admission her weight was 49.89 kg and she was initially 211 pounds. In the ER they did a CT angiogram of the chest to rule out PE after they found that she had DVT of the right leg. The impression was no evidence of pulmonary emboli. She had trace pleural effusion with mild diffuse anasarca, and that is due to the initial overload of the fluid. She has also a small hiatal hernia. With these findings, consultations with Psychiatry and Nephrology were ordered. Nephrology adjusted her IV fluid because of the rhabdomyolysis and high CPK and started with high IV 150 mL/hour and gradually decreased it. She had normal renal function. The patient was seen by Dr. Gutierrez and subsequently by Dr. Walls. The first psychiatrist does not want to be involved and the second psychiatrist stated that she has chronic schizophrenia, stable on Haldol, and refuses to take an increase of Cogentin; and physically degenerating and needs placement in a longterm facility. Her current list of medications is: 1. Vasotec 20 mg daily for hypertension. 2. Cogentin, which is benztropine mesylate, 0.5 mg 3 times a day. 3. She was taking Keflex 500 mg t.i.d. 4. Haldol 5 mg once daily. She has a history of numerous inpatient psychiatric admissions, the last one in December 2015. Dr. Walls stated that she was in the past, not at this time in December of 2015, on Seroquel 600 mg at bedtime and Abilify 15 mg daily and Ativan 1 mg twice a day. She has been on Haldol in the past and Resperal as well. She has significant extrapyramidal symptoms with the Haldol. No history of suicidal attempt. However, his current recommendation chronic schizophrenia, stable on Haldol and refuses to take an increase of Cogentin. PHYSICAL EXAMINATION: On today's exam, her vital signs are temperature 98.4, pulse 69, respiratory rate 16, blood pressure 121/58 and mean blood pressure 79. Her oxygenation is fluctuating between 98% and 93%. Patient is conscious, alert, able to communicate. However, she has tardive dyskinesia with extrapyramidal symptoms from previous medication. She was completely herself at home, as she is in an apartment and could not eat and lost weight, nobody observing her. She needs definitely a fci or a psychiatric facility. On the examination, HEENT was negative. Neck was supple. Chest was clear to auscultation and percussion. The heart was in regular sinus rhythm. The abdomen was soft with positive bowel sounds. EXTREMITIES: No edema. In the past she had ulceration of the right leg that was treated by Dr. Golden. She has also movement of the mouth that is chronically present with the tardive dyskinesia. The nurses told me that she ate very well today but needs somebody to give it to her and encourage her to eat. With these findings, we will continue the current treatment. 1. She is on heparin infusion due to the impression of DVT of the right leg extending to the popliteal. 2. Continue the antidepressant, lisinopril 40 mg, and the haloperidol once a day, Cogentin 0.5 mg 3 times a day and Keflex. However, we will see if there is any need for the Keflex at this time. We can ask for a plan for fci placement and treatment as an outpatient by a psychiatrist, as Dr. Walls did not accept her in his unit of psychiatric care. MMMANINDER / KOURTNEYN: [id number] /
[2018-06-16] MEDS: HEPARIN SOD,PORK IN 0.45% NACL 25,000 UNIT in 0.45% NACL 1 250ML.BAG IV SCH (21:19)
[2018-06-17 00:53] LABS: Appearance,Urine Clear (Clear); Bilirubin,Urine Negative (Negative); Blood,Urine Negative (Negative); Color,Urine Yellow; Glucose,Urine (UA) Negative (Negative); Ketones,Urine Negative (Negative); Leukocyte Esterase,Urine Negative (Negative); Nitrite,Urine Negative (Negative); PH, Urine 5.5 (5.0-8.0); Protein,Urine Negative (Negative); Specific Gravity,Urine 1.022 (1.001-1.035); Urobilinogen,Urine <2.0 mg/dL (<2.0)
[2018-06-17] MEDS: SODIUM CHLORIDE 0.9% 1,000 ML IV SCH (05:59)
[2018-06-17 08:10] LABS: Basophils % (A) 1 %; Eosinophils # (A) 0.2 k/uL (0-0.7); Eosinophils % (A) 3 %; HCT 31.8 % (34.0-46.0); HGB 10.4 gm/dL (11.4-16.0); Lymphocytes # (A) 1.2 k/uL (1.0-4.8); Lymphocytes % (A) 23 %; MCH 31.4 pg (25.0-35.0); MCHC 32.8 g/dL (31.0-37.0); MCV 95.6 fL (80.0-100.0); Mean Platelet Volume 8.6; Monocytes # (A) 0.4 k/uL (0-1.0); Monocytes % (A) 7 %; Neutrophils # (A) 3.4 k/uL (1.3-7.7); Neutrophils % (A) 64 %; Platelet Count 175 k/uL (150-450); RBC 3.32 m/uL (3.80-5.40); RDW 13.5 % (11.5-15.5); WBC 5.2 k/uL (3.8-10.6)
[2018-06-17 08:32] LABS: ALT 67 U/L (9-52); AST 62 U/L (14-36); Albumin 2.8 g/dL (3.5-5.0); Alkaline Phosphatase 42 U/L (38-126); Anion Gap 0 mmol/L; Blood Urea Nitrogen 16 mg/dL (7-17); Calcium 8.3 mg/dL (8.4-10.2); Carbon Dioxide 26 mmol/L (22-30); Chloride 112 mmol/L (98-107); Creatine Kinase 602 U/L (30-135); Glucose 92 mg/dL (74-99); Magnesium 1.7 mg/dL (1.6-2.3); Potassium 4.2 mmol/L (3.5-5.1); Sodium 138 mmol/L (137-145); Total Bilirubin 0.5 mg/dL (0.2-1.3)
[2018-06-17] MEDS: HALOPERIDOL 5 MG TAB PO SCH (09:15)
[2018-06-17] MEDS: LISINOPRIL 20 MG TAB PO SCH (09:15)
[2018-06-17] MEDS: BENZTROPINE MESYLATE 0.5 MG TAB PO SCH ×3 (09:15→21:12)
--- NOTE | 2018-06-17 09:49 | P.PN ---
Subjective Patient is seen in follow-up for rhabdomyolysis which has been improving. She is maintained on normal saline at 50 mL an hour. Oral intake has been good. Denies chest pain or shortness of breath. GFR at baseline. CK level down to 602 today. Vital signs are stable. General: The patient appeared well nourished and normally developed. HEENT: Head exam is unremarkable. Neck is without jugular venous distension. LUNGS: Lungs are clear to auscultation and percussion. Breath sounds decreased. HEART: Rate and Rhythm are regular. First and second heart sounds normal. No murmurs, rubs or gallops. ABDOMEN: Abdominal exam reveals normal bowel sounds. Non-tender and non- distended. No evidence of peritonitis. EXTREMITITES: No clubbing, cyanosis, or edema. Objective - Vital Signs Vital signs: Vital Signs Temp 98.7 F 06/17/18 04:58 Pulse 65 06/17/18 04:58 Resp 16 06/17/18 04:58 BP 137/63 06/17/18 04:58 Pulse Ox 97 06/17/18 04:58 Intake & Output 06/16/18 06/17/18 06/17/18 18:59 06:59 18:59 Intake Total 774.848 880.152 Balance 774.848 880.152 Intake: Intake, IV Titration 534.848 290.152 Amount Heparin Sod,Pork in 0.45% 134.848 115.152 NaCl 25,000 unit In 0.45 % NaCl 1 250ml.bag @ 18 UNITS/KG/HR 8.034 mls/hr IV .Q24H RICHIE Rx#: [id number] Sodium Chloride 0.9% 1, 400 175 000 ml @ 50 mls/hr IV . Q20H RICHIE Rx#:[id number] Oral 240 590 Other: Voiding Method Bedpan Bedpan Diaper # Voids 2 3 - Labs CBC & Chem 7: 06/17/18 07:28 06/17/18 07:28 Labs: Abnormal Lab Results - Last 24 Hours (Table) 06/16/18 06/17/18 06/17/18 Range/Units 15:12 07:28 07:28 RBC 3.32 L (3.80-5.40) m/uL Hgb 10.4 L (11.4-16.0) gm/dL Hct 31.8 L (34.0-46.0) % APTT 60.3 H (22.0-30.0) sec Chloride 112 H (98-107) mmol/L Calcium 8.3 L (8.4-10.2) mg/dL AST 62 H (14-36) U/L ALT 67 H (9-52) U/L Creatine Kinase 602 H (30-135) U/L Total Protein 5.0 L (6.3-8.2) g/dL Albumin 2.8 L (3.5-5.0) g/dL 06/17/18 Range/Units 07:28 RBC (3.80-5.40) m/uL Hgb (11.4-16.0) gm/dL Hct (34.0-46.0) % APTT 60.2 H (22.0-30.0) sec Chloride (98-107) mmol/L Calcium (8.4-10.2) mg/dL AST (14-36) U/L ALT (9-52) U/L Creatine Kinase (30-135) U/L Total Protein (6.3-8.2) g/dL Albumin (3.5-5.0) g/dL Assessment and Plan Plan: Assessment: 1. Rhabdomyolysis secondary to immobility. Improved with IV hydration. CK levels trending down. 2. Right lower extremity DVT maintained on IV heparin. 3. Benign hypertension. Controlled. Plan: Hep-Lock IV fluids. Encourage oral intake. Hold lisinopril for systolic blood pressure less than 120.
[2018-06-17] MEDS: APIXABAN 5 MG TAB PO SCH ×2 (13:19→21:12)
--- NOTE | 2018-06-17 13:24 | P.PN ---
Subjective Progress Note Date: 06/17/18 (right leg DVT, rhabdomyolysis.) Principal diagnosis: diagnosis: #1 rhabdomyolysis with a history of fall from bed with a CK more than 9000 treated with IV fluid and consultation with nephrology. #2 acute deep vein thrombosis of the right lower extremities extended from femoral to popliteal. #3 underlying schizophrenia with paranoia with the underlying history of depression seen by Dr. Santiago and he'll continue the same medication without changes. #4 tardive dyskinesia with extrapyramidal symptoms from her previous and current medication. #5 hypertension with hypertensive heart disease. #6 anticoagulant started today on 06/17/2018 with eliquis 10 mg twice a day for 7 days followed by 5 mg twice a day for 3 months duration for unprovoked DVT of the right lower extremities after discontinuation of unfractionated heparin. a progress note date of service 06/17/2018. Patient seen evaluated [id number] discussed with her the current plan and advised with the changes of the medication. laboratories:, White count 5.2 hemoglobin 10.4 hematocrit 31.8 MCV 95.6 with the underlying anemia will be check in iron study, occult blood of the stool, and vitamin B12 level. Her PTT 60.2 has been discontinued the heparin and started on requests today 10 mg. CK on admission 9011 x 7 724 and gradually improved and S2 with. As of today 602 with theglomerular filtration rate more than 90. She has mild elevation of AST and a LT with normal alkaline phosphatase and we'll obtain lab for hepatitis acute panel. Her protein and albumin was 5/2.8 however patient now is starting to eat after significant weight loss more than 50%. Patient was 211 pounds and currently 107, but she have a good appetite and able to eat and will improve her protein intake. Urine analysis was negative. On exam patient conscious alert she oriented however she had difficulty for speak with the continuous positive dyskinesia. She able to eat and swallow without dysphagia. Head was normocephalic and atraumatic pupil was equal reactive conjunctiva was pink sclera was nonicteric. And trachea midline. The chest is clear to auscultation percussion. Heart regular sinus rhythm no dysrhythmia abdomen was soft positive bowel sounds no tenderness. The extremities no edema positive pulses and she had difficulties of ambulation she has been seen by the PT and OT and they did some movement at bedside and she was walking and bending over. With the underlying arthritis of the spine and difficulty with walking. Patient need for further inpatient rehabilitation at [facility] Assessment: #1 following beside the bed with high CK muscular origin with the underlying rhabdomyolysis treated with hydration and nephrology consultation. #2 unprovoked right DVT extending from the femoral to popliteal treated with unfractionated heparin for 3 days followed by eliquis in the hospital 10 mg twice a day for total of 7 days followed by 5 mg twice a day continue for 3 months then recheck the right lower extremities for follow-up on the DVT. #3 underlying schizophrenia with paranoia and depression with withdrawal . And need for further psychiatric consultation in [facility] for follow-up on her current medication and also change it if needed. Plan. Consultation for tomorrow [facility] requested for senior care as discussed with her caregiver her brother Mr. Min and he indicated that he would like also [facility] as he is the caregiver. And we will wait for available bed tomorrow. Heparin discontinued, anticoagulation started orally. We hope that results of the laboratory will be available tomorrow. And the social work msw and digital media planner has been consulted. Objective - Vital Signs Vital signs: Vital Signs Temp 98.2 F 06/17/18 11:51 Pulse 95 06/17/18 11:51 Resp 17 06/17/18 11:51 BP 126/64 06/17/18 11:51 Pulse Ox 96 06/17/18 11:51 Intake & Output 06/16/18 06/17/18 06/17/18 18:59 06:59 18:59 Intake Total 774.848 880.152 Balance 774.848 880.152 Intake: Intake, IV Titration 534.848 290.152 Amount Heparin Sod,Pork in 0.45% 134.848 115.152 NaCl 25,000 unit In 0.45 % NaCl 1 250ml.bag @ 18 UNITS/KG/HR 8.034 mls/hr IV .Q24H RICHIE Rx#: [id number] Sodium Chloride 0.9% 1, 400 175 000 ml @ 50 mls/hr IV . Q20H RICHIE Rx#:[id number] Oral 240 590 Other: Voiding Method Bedpan Bedpan Diaper # Voids 2 3 - Labs CBC & Chem 7: 06/17/18 07:28 06/17/18 07:28 Labs: Abnormal Lab Results - Last 24 Hours (Table) 06/16/18 06/17/18 06/17/18 Range/Units 15:12 07:28 07:28 RBC 3.32 L (3.80-5.40) m/uL Hgb 10.4 L (11.4-16.0) gm/dL Hct 31.8 L (34.0-46.0) % APTT 60.3 H (22.0-30.0) sec Chloride 112 H (98-107) mmol/L Calcium 8.3 L (8.4-10.2) mg/dL AST 62 H (14-36) U/L ALT 67 H (9-52) U/L Creatine Kinase 602 H (30-135) U/L Total Protein 5.0 L (6.3-8.2) g/dL Albumin 2.8 L (3.5-5.0) g/dL 06/17/18 Range/Units 07:28 RBC (3.80-5.40) m/uL Hgb (11.4-16.0) gm/dL Hct (34.0-46.0) % APTT 60.2 H (22.0-30.0) sec Chloride (98-107) mmol/L Calcium (8.4-10.2) mg/dL AST (14-36) U/L ALT (9-52) U/L Creatine Kinase (30-135) U/L Total Protein (6.3-8.2) g/dL Albumin (3.5-5.0) g/dL
[2018-06-17 16:31] LABS: Hepatitis A Antibody IgM Non-Reactive (Non-Reactive); Hepatitis B Core IgM Non-Reactive (Non-Reactive)
[2018-06-17 16:35] LABS: Iron Saturation 30.17 (12.00-45.00)
[2018-06-18 07:38] LABS: Basophils % (A) 1 %; Eosinophils # (A) 0.2 k/uL (0-0.7); Eosinophils % (A) 3 %; HCT 30.6 % (34.0-46.0); HGB 10.6 gm/dL (11.4-16.0); Lymphocytes # (A) 1.1 k/uL (1.0-4.8); Lymphocytes % (A) 17 %; MCH 32.9 pg (25.0-35.0); MCHC 34.8 g/dL (31.0-37.0); MCV 94.7 fL (80.0-100.0); Monocytes # (A) 0.5 k/uL (0-1.0); Monocytes % (A) 7 %; Neutrophils # (A) 4.6 k/uL (1.3-7.7); Neutrophils % (A) 70 %; Platelet Count 185 k/uL (150-450); RBC 3.23 m/uL (3.80-5.40); RDW 13.7 % (11.5-15.5); WBC 6.5 k/uL (3.8-10.6)
[2018-06-18] MEDS: APIXABAN 5 MG TAB PO SCH (08:20)
[2018-06-18] MEDS: LISINOPRIL 20 MG TAB PO SCH (08:20)
[2018-06-18] MEDS: HALOPERIDOL 5 MG TAB PO SCH (08:20)
[2018-06-18] MEDS: BENZTROPINE MESYLATE 0.5 MG TAB PO SCH (08:20)
--- NOTE | 2018-06-18 08:29 | P.PN ---
Subjective Patient is seen in follow-up for rhabdomyolysis which has been improving. She is off IV fluids . Oral intake has been good. Denies chest pain or shortness of breath. GFR at baseline. CK level down to 602 as of yesterday. No active complaints. Hemodynamically stable. Vital signs are stable. General: The patient appeared well nourished and normally developed. HEENT: Head exam is unremarkable. Neck is without jugular venous distension. LUNGS: Lungs are clear to auscultation and percussion. Breath sounds decreased. HEART: Rate and Rhythm are regular. First and second heart sounds normal. No murmurs, rubs or gallops. ABDOMEN: Abdominal exam reveals normal bowel sounds. Non-tender and non- distended. No evidence of peritonitis. EXTREMITITES: No clubbing, cyanosis, or edema. Objective - Vital Signs Vital signs: Vital Signs Temp 99.1 F 06/18/18 05:00 Pulse 78 06/18/18 05:00 Resp 16 06/18/18 05:00 BP 122/68 06/18/18 05:00 Pulse Ox 96 06/18/18 05:00 Intake & Output 06/17/18 06/18/18 06/18/18 18:59 06:59 18:59 Intake Total 600 240 Output Total 500 Balance 600 -260 Intake: Oral 600 240 Output: Urine 500 Other: Voiding Method Bedpan Bedpan Diaper Diaper Incontinent Incontinent # Voids 2 1 - Labs CBC & Chem 7: 06/18/18 06:21 06/17/18 07:28 Labs: Abnormal Lab Results - Last 24 Hours (Table) 06/17/18 06/18/18 Range/Units 07:28 06:21 RBC 3.23 L (3.80-5.40) m/uL Hgb 10.6 L (11.4-16.0) gm/dL Hct 30.6 L (34.0-46.0) % Chloride 112 H (98-107) mmol/L Calcium 8.3 L (8.4-10.2) mg/dL AST 62 H (14-36) U/L ALT 67 H (9-52) U/L Creatine Kinase 602 H (30-135) U/L Total Protein 5.0 L (6.3-8.2) g/dL Albumin 2.8 L (3.5-5.0) g/dL Assessment and Plan Plan: Assessment: 1. Rhabdomyolysis secondary to immobility. Improved with IV hydration. CK levels trending down. 2. Right lower extremity DVT maintained on eliquis. 3. Benign hypertension. Controlled. Plan: Encourage oral intake. Hold lisinopril for systolic blood pressure less than 120. Stable to be discharged home from nephrology standpoint.
--- NOTE | 2018-06-18 10:44 | P.DS ---
Providers Date of admission: 06/14/18 11:07 Discharge diagnoses: #1 Acute rhabdomyolysis improved and the last CPK is 602 with a hemodynamically stable, cleared from the nephrology for discharge. #2 Right lower extremities DVT, currently treated was unfractionated heparin for 3 days followed byEliquis 10 mg twice a day for 7 days due to follow by 5 mg twice a day for 3 months. #3 schizophrenia with paranoia, depression, associated as well as tardive dyskinesia. He followed by psychiatrist in [facility] for as outside Dr. Pan. #4 hypertension controlled. #5 significant weight loss more than 50%, used to be 211 pounds currently 107 pounds due to her psychiatric disorder . #6 right lower extremities scarring history of venous DICTATED by Dr. Desouza. #7 walking disability with severe bending over with the need for further rehabilitation. #8 frequent small with the bruises in the left fascial found in her apartment on the floor. #9 speech disturbance associated with antipsychotic medication. Secondary to extrapyramidal effect. Attending physician: Adi Gill Consults: 06/14/18 11:08 Consult Physician Routine Consulting Provider: Tanika Tolliver Consult Reason/Comments: Rhabdomyolysis Do you want consulting provider notified?: Yes 06/14/18 13:49 Consult Physician Routine Consulting Provider: Iraj Walls Consult Reason/Comments: psych eval, pt home med is haldol questioning dose Do you want consulting provider notified?: Yes Primary care physician: Adi Gill This is a discharge summary: Patient stable general condition and transferred to [facility] and rehab today. Vital signs stable with blood pressure 122/68 and pulse ox 96% respiratory rate 16 and her heart is regular sinus rhythm. On discharge: Patient is conscious aler will be able to eat and swallow and interrupted speech. Due to her extra pyramidal effect from her medication although. Patient seen by a psychiatrist in the hospital and they did not change her medication. Temperature 99.6 axilary. HEENT negative. Neck was supple no JVD no thyromegaly no lymphadenopathy trachea midline. Chest was clear for auscultation and percussion no wheezes or rhonchi. Heart sinus rhythm. Abdomen soft positive bowel sounds no organ enlargement. Extremities: DVT by venous duplex study with some edema on the left lower extremities. And history of previous venous ulcer treated by vascular surgeon in the past. No need for further treatment. Neurologically: No evidence of strokes in the past. Psychiatry: Schizophrenia with paranoia and depression. Presentation to the ER: Patient found at her apartment with the bruising on the left side of the fascial and the neck brought by ambulance during the weekend and subsequently found [place] [address] and treated with IV fluids and nephrology consultation and admitted to the floor after being obtained ultrasound of the lower extremities which found that she had a right DVT. Hospital course: Patient started on unfractionated heparin, consultation with nephrology, IV fluid, and subsequently has stabilized heparin discontinued and started on a courseof eliquis 10 mg twice a day for total of 7 days she started yesterday on the and the left will be 6 days of 10 mg twice a day. Subsequently noted to be changes to 5 mg twice a day for total 3 months. Subsequently she will need ultrasound of the right lower extremities to evaluate the resolution of the DVT. Hypertension controlled. And physical therapy was consulted during her hospital stay and patient has difficulty with ambulation and need for further evaluation and that inpatient rehab. Patient Condition at Discharge: Fair Plan - Discharge Summary Discharge Rx Participant: No New Discharge Prescriptions: New Apixaban [Eliquis] 10 mg PO BID tab Lisinopril [Zestril] 40 mg PO DAILY tab Continue Haloperidol [Haldol] 5 mg PO DAILY Benztropine Mesylate 0.5 mg PO TID Discontinued Enalapril [Vasotec] 20 mg PO DAILY Cephalexin [Keflex] 500 mg PO TID Discharge Medication List Benztropine Mesylate 0.5 mg PO TID 06/14/18 [History] Haloperidol [Haldol] 5 mg PO DAILY 06/14/18 [History] Apixaban [Eliquis] 10 mg PO BID tab 06/18/18 [Rx] Lisinopril [Zestril] 40 mg PO DAILY tab 06/18/18 [Rx] Follow up Appointment(s)/Referral(s): Adi Gill MD [Primary Care Provider] - 1-2 days
[2018-06-18 12:35] VITALS: BP 139/68; PULSE 85; RESP 17; TEMP 99.2
[2018-06-19] MEDS ORDERED: HALOPERIDOL ORAL SOLN 10 MG/5 ML CUP PO SCH (09:00)
[2018-06-24] MEDS ORDERED: APIXABAN 5 MG TAB PO SCH (09:00)
== END 2018-06-18 14:02 | DRG 558 ==
LOC: EC 08:28 → 3NMEDONC 11:07 → EEVIPCON 11:07
PROVIDERS: ADMIT Internal Medicine; ATTEND Internal Medicine
DX: M62.82 Rhabdomyolysis (principal); F20.0 Paranoid schizophrenia; I82.411 Acute embolism and thrombosis of right femoral vein; Z68.1 Body mass index [BMI] 19.9 or less, adult; E86.0 Dehydration; I11.9 Hypertensive heart disease without heart failure; K76.89 Other specified diseases of liver; D64.9 Anemia, unspecified; F32.9 Major depressive disorder, single episode, unspecified; G24.01 Drug induced subacute dyskinesia; M19.90 Unspecified osteoarthritis, unspecified site; M40.209 Unspecified kyphosis, site unspecified; F41.9 Anxiety disorder, unspecified; R26.2 Difficulty in walking, not elsewhere classified; R47.9 Unspecified speech disturbances; R63.4 Abnormal weight loss; Z79.899 Other long term (current) drug therapy; Z82.3 Family history of stroke; Z83.3 Family history of diabetes mellitus; Z82.49 Family history of ischemic heart disease and other diseases of the circulatory system; W06.XXXA Fall from bed, initial encounter
CPT/HCPCS: 36415; 70450; 71046; 71275; 80048; 80053; 80074; 81001; 81003; 82550; 82553; 82607; 83540; 83550; 83735; 84100; 84484; 84550; 85025; 85610; 85730; 93005; 93970; 96360; 96361; 99285

== ENCOUNTER 2018-07-28 18:56 | Inpatient (IN) | payer MEDICARE, BC ==
[2018-07-28] MEDS ORDERED: SODIUM CHLORIDE 0.9% 1,000 ML IV STA ×2 (19:26→20:46)
--- NOTE | 2018-07-28 19:26 | ED ---
General Adult HPI - General Chief complaint: Altered Mental Status Stated complaint: Poss Stroke Time Seen by Provider: 07/28/18 19:11 Source: EMS Mode of arrival: EMS Limitations: altered mental status - History of Present Illness Initial comments: Dictation was produced using [employer] dictation software. please excuse any grammatical, word or spelling errors. Chief Complaint: 72-year-old female with past medical history of hypertension was found down. History of Present Illness: He rolled female past medical history of hypertension. She was last seen normal yesterday morning to early afternoon. Assisted-living facility did not see patient and was concerned. They found her on the floor in her apartment. Patient unable to provide HPI at this time due to mental status. Unable to obtain ROS secondary to mental status PHYSICAL EXAM: General Impression: Lethargic, tremulous, follows commands HEENT: Normocephalic atraumatic, extra-ocular movements intact, pupils equal and reactive to light bilaterally, dry mucous membranes Cardiovascular: Heart regular rate and rhythm, S1&S2 audible, no murmurs, rubs or gallops Chest: Lungs clear to auscultation bilaterally, no rhonchi, no wheeze, no rales Abdomen: Bowel sounds present, abdomen soft, non-tender, non-distended, no organomegaly Musculoskeletal: Pulses present and equal in all extremities, no peripheral edema Motor: no focal deficits noted Neurological: CN II-XII grossly intact, no focal motor or sensory deficits noted Skin: Abrasion to the left anterior abdomen ED course: 72-year-old female presents with being found down and altered mental status. Signs upon arrival are within acceptable limits. At this point there is no clear signs of acute traumatic injury. She is moving all extremities Computed tomography scan of the head and C-spine was obtained to evaluate for acute traumatic injuries. CT is of the head C-spine was unremarkable. CT chest abdomen pelvis was obtained given that patient is a poor historian and was found on the ground. CT shows constipation with rectal fecal impaction. Patient is requesting by mouth. Denies any abdominal pain. Laboratory evaluation obtained. Leukocytosis of 19.6, CBC unremarkable. Metabolic panel shows slight elevation of renal markers which is abnormal for patient. Patient has evidence of elevated creatinine kinase with the level 2820. Patient shows also signs of dehydration. Patient fluids for rhabdomyolysis and dehydration. Patient observed in the emergency Department with improvement of mental status. He is able to provide more history. Denies any chest pain or shortness of breath. Patient states this feels very. Hungry. She reports that she fell into a basket could not get up. She states she fell and was on the ground for 2 days. She states she did not eat or drink any water since then. And moving all extremities. She does have an asymmetrical neuro deficits to suggest CVA. Patient be admitted with consultation to nephrology. Patient does have slight elevation of troponin however is likely secondary to muscle damage. She denies any chest pain or ACS type symptoms. EKG interpretation: Ventricular rate 94, normal sinus rhythm,. Interval 160, QS 50, QTc 420. No IN prolongation, no QTC prolongation, no ST or T-wave changes noted. Overall, this EKG is unremarkable - Related Data Home Medications Medication Instructions Recorded Confirmed Benztropine Mesylate 0.5 mg PO TID 06/14/18 07/28/18 Haloperidol [Haldol] 5 mg PO DAILY 06/14/18 07/28/18 Amantadine HCl [Amantadine] 100 mg PO DAILY 07/28/18 07/28/18 Enalapril [Vasotec] 20 mg PO DAILY 07/28/18 07/28/18 Furosemide [Lasix] 20 mg PO DAILY 07/28/18 07/28/18 QUEtiapine FUMARATE [SEROquel] 300 mg PO HS 07/28/18 07/28/18 amLODIPine [Norvasc] 10 mg PO HS 07/28/18 07/28/18 Allergies Allergy/AdvReac Type Severity Reaction Status Date / Time No Known Allergies Allergy Verified 07/28/18 19:31 Review of Systems ROS Statement: Those systems with pertinent positive or pertinent negative responses have been documented in the HPI. ROS Other: All systems not noted in ROS Statement are negative. Past Medical History Past Medical History: Hypertension History of Any Multi-Drug Resistant Organisms: None Reported Past Surgical History: No Surgical Hx Reported Past Psychological History: Anxiety, Depression Smoking Status: Never smoker Past Alcohol Use History: None Reported Past Drug Use History: None Reported - Past Family History Father Family Medical History: CVA/TIA, Diabetes Mellitus General Exam Limitations: altered mental status Course Vital Signs 07/28/18 07/28/18 19:08 19:56 Temperature 98 F Pulse Rate 91 79 Respiratory 18 18 Rate Blood Pressure 147/79 126/80 O2 Sat by Pulse 96 98 Oximetry Medical Decision Making - Lab Data Result diagrams: 07/28/18 19:03 07/28/18 19:51 Lab Results 07/28/18 07/28/18 07/28/18 Range/Units 19:03 19:03 19:51 WBC 19.6 H (3.8-10.6) k/uL RBC 4.27 (3.80-5.40) m/uL Hgb 13.7 D (11.4-16.0) gm/dL Hct 40.4 (34.0-46.0) % MCV 94.7 (80.0-100.0) fL MCH 32.0 (25.0-35.0) pg MCHC 33.8 (31.0-37.0) g/dL RDW 14.0 (11.5-15.5) % Plt Count 223 (150-450) k/uL Neutrophils % 91 % Lymphocytes % 1 % Monocytes % 6 % Eosinophils % 1 % Basophils % 0 % Neutrophils # 17.9 H (1.3-7.7) k/uL Lymphocytes # 0.3 L (1.0-4.8) k/uL Monocytes # 1.2 H (0-1.0) k/uL Eosinophils # 0.1 (0-0.7) k/uL Basophils # 0.1 (0-0.2) k/uL Sodium 145 (137-145) mmol/L Potassium 4.6 (3.5-5.1) mmol/L Chloride 111 H (98-107) mmol/L Carbon Dioxide 23 (22-30) mmol/L Anion Gap 11 mmol/L BUN 45 H (7-17) mg/dL Creatinine 1.37 H (0.52-1.04) mg/dL Est GFR (CKD-EPI)AfAm 44 (>60 ml/min/1.73 sqM) Est GFR (CKD-EPI)NonAf 38 (>60 ml/min/1.73 sqM) Glucose 181 H (74-99) mg/dL Calcium 9.5 (8.4-10.2) mg/dL Magnesium 2.2 (1.6-2.3) mg/dL Total Bilirubin 1.4 H (0.2-1.3) mg/dL AST 167 H (14-36) U/L ALT 97 H (9-52) U/L Alkaline Phosphatase 46 (38-126) U/L Ammonia 19 (<30) umol/L Creatine Kinase 2820 H* (30-135) U/L Troponin I (0.000-0.034) ng/mL Total Protein 7.2 (6.3-8.2) g/dL Albumin 4.3 (3.5-5.0) g/dL 07/28/18 Range/Units 19:51 WBC (3.8-10.6) k/uL RBC (3.80-5.40) m/uL Hgb (11.4-16.0) gm/dL Hct (34.0-46.0) % MCV (80.0-100.0) fL MCH (25.0-35.0) pg MCHC (31.0-37.0) g/dL RDW (11.5-15.5) % Plt Count (150-450) k/uL Neutrophils % % Lymphocytes % % Monocytes % % Eosinophils % % Basophils % % Neutrophils # (1.3-7.7) k/uL Lymphocytes # (1.0-4.8) k/uL Monocytes # (0-1.0) k/uL Eosinophils # (0-0.7) k/uL Basophils # (0-0.2) k/uL Sodium (137-145) mmol/L Potassium (3.5-5.1) mmol/L Chloride (98-107) mmol/L Carbon Dioxide (22-30) mmol/L Anion Gap mmol/L BUN (7-17) mg/dL Creatinine (0.52-1.04) mg/dL Est GFR (CKD-EPI)AfAm (>60 ml/min/1.73 sqM) Est GFR (CKD-EPI)NonAf (>60 ml/min/1.73 sqM) Glucose (74-99) mg/dL Calcium (8.4-10.2) mg/dL Magnesium (1.6-2.3) mg/dL Total Bilirubin (0.2-1.3) mg/dL AST (14-36) U/L ALT (9-52) U/L Alkaline Phosphatase (38-126) U/L Ammonia (<30) umol/L Creatine Kinase (30-135) U/L Troponin I 0.050 H* (0.000-0.034) ng/mL Total Protein (6.3-8.2) g/dL Albumin (3.5-5.0) g/dL Disposition Clinical Impression: Weakness, Rhabdomyolysis Disposition: ADMITTED IP TO THIS HOSP Condition: Fair Referrals: Adi Gill MD [Primary Care Provider] - 1-2 days Decision Time: 20:58
[2018-07-28 19:40] LABS: Basophils # (A) 0.1 k/uL (0-0.2); Basophils % (A) 0 %; Eosinophils # (A) 0.1 k/uL (0-0.7); Eosinophils % (A) 1 %; HCT 40.4 % (34.0-46.0); Lymphocytes # (A) 0.3 k/uL (1.0-4.8); Lymphocytes % (A) 1 %; MCHC 33.8 g/dL (31.0-37.0); MCV 94.7 fL (80.0-100.0); Mean Platelet Volume 8.4; Monocytes # (A) 1.2 k/uL (0-1.0); Monocytes % (A) 6 %; Neutrophils # (A) 17.9 k/uL (1.3-7.7); Neutrophils % (A) 91 %; Platelet Count 223 k/uL (150-450); RBC 4.27 m/uL (3.80-5.40); WBC 19.6 k/uL (3.8-10.6)
[2018-07-28 19:55] LABS: HGB 13.7 gm/dL (11.4-16.0)
--- NOTE | 2018-07-28 20:06 | CT ---
EXAMINATION TYPE: CT ChestAbdPelvis w con DATE OF EXAM: 07/28/2018 COMPARISON: None HISTORY: trauma, pt found unresponsive CT DLP: 374.4 mGycm Automated exposure control for dose reduction was used. CONTRAST: CT scan of the chest, abdomen and pelvis is performed without Oral Contrast and with IV Contrast, pat ient injected with 100 mL of Isovue 300. FINDINGS: The lungs are clear of infiltrate. There is no evidence of pulmonary mass. Heart size is normal. Ther e is no pericardial effusion. There is 4 cm aneurysm of the ascending aorta. There is no sign of diss ection. There is no mediastinal adenopathy. There are no hilar masses. There is no pleural effusion. Liver spleen stomach appear normal. Bile ducts are not dilated. There i s no sign of pancreatic mass. Gallbladder appears normal. There is no adrenal mass. Kidneys show satisfactory contrast opacification. There is no hydronephrosi s. Abdominal aorta is atheromatous. There is no retroperitoneal adenopathy. There is retained fecal m aterial throughout the large bowel. Rectum is enlarged and measures 7 cm. Bladder distends smoothly. There is no free fluid in the pelvis. There is no inguinal hernia. There is no mesenteric edema. There is no sign of free air. There is no ascites. Appendix is not seen . Thoracic and lumbar spine appear intact. Bony pelvis is intact. IMPRESSION: Constipation. Rectal fecal impaction. No sign of acute traumatic injury of the chest abdomen pelvis. 4 cm aneurysm of the ascending aorta u nchanged compared to chest CT scan 06/15/2018.
--- NOTE | 2018-07-28 20:08 | CT ---
EXAMINATION TYPE: CT brain kale chong con DATE OF EXAM: 07/28/2018 COMPARISON: CT brain June 14, 2018. HISTORY: trauma, pt found unresponsive CT DLP: 1392.1 mGycm Automated exposure control for dose reduction was used. TECHNIQUE: CT scan of the head and cervical spine are performed without contrast. FINDINGS: There is cerebral cortical atrophy. There is no mass effect nor midline shift. There is n o sign of intracranial hemorrhage. The calvarium is intact. Cervical vertebra have normal alignment. There is degenerative hypertrophic spurring anteriorly from C4 to C7 with spurring of the endplates. I see no significant narrowing of the spinal canal. There is multilevel hypertrophic facet arthropathy. The skull base is intact. IMPRESSION: Cerebral atrophy. No acute intracranial abnormality. No change. Spondylotic changes in the mid and lower cervical spine. No fracture.
[2018-07-28 20:18] LABS: Albumin 4.3 g/dL (3.5-5.0); Calcium 9.5 mg/dL (8.4-10.2); Magnesium 2.2 mg/dL (1.6-2.3); Potassium 4.6 mmol/L (3.5-5.1); Total Bilirubin 1.4 mg/dL (0.2-1.3); Total Protein 7.2 g/dL (6.3-8.2)
[2018-07-28 20:53] LABS: Prothrombin Time 10.4 sec (9.0-12.0)
[2018-07-28 20:57] LABS: Partial Thromboplastin Time 20.2 sec (22.0-30.0)
[2018-07-28] MEDS ORDERED: ACETAMINOPHEN TAB 325 MG TAB PO PRN (20:58)
[2018-07-28] MEDS ORDERED: NALOXONE 0.4 MG/ML 1 ML VIAL IV PRN (20:58)
[2018-07-28] MEDS ORDERED: ENALAPRILAT 1.25 MG/ML 1 ML VIAL IVP STA (21:26)
[2018-07-28 21:30] LABS: Amorphous Sediment,Urine Occasional /hpf; Appearance,Urine Cloudy (Clear); Bilirubin,Urine Negative (Negative); Blood,Urine Moderate (Negative); Color,Urine Yellow; Glucose,Urine (UA) Negative (Negative); Granular Casts,Urine 10 /lpf (0); Hyaline Casts,Urine 36 /lpf (0-2); Ketones,Urine Negative (Negative); Leukocyte Esterase,Urine Negative (Negative); Mucus,Urine Few /hpf; Nitrite,Urine Negative (Negative); PH, Urine 5.5 (5.0-8.0); Protein,Urine 1+ (Negative); RBC,Urine 1 /hpf (0-5); Urobilinogen,Urine <2.0 mg/dL (<2.0); WBC,Urine 6 /hpf (0-5)
[2018-07-29] MEDS ORDERED: DIPH,PERTUS(ACELL)TETVAC-LF 0.5 ML VIAL IM ONE (00:31)
--- NOTE | 2018-07-29 01:02 | XR ---
EXAM: XR Left Elbow Complete, 3 or More Views CLINICAL HISTORY: ITS.REASON XR Reason: pain TECHNIQUE: Frontal, lateral and oblique views of the left elbow. COMPARISON: No relevant prior studies available. FINDINGS: Bones/joints: Unremarkable. No acute fracture. No dislocation. Soft tissues: Unremarkable. IMPRESSION: Normal left elbow x-rays.
[2018-07-29] MEDS: PANTOPRAZOLE 40 MG TABLET PO SCH (06:00)
[2018-07-29] MEDS: AMANTADINE HCL 100 MG CAP PO SCH (08:55)
[2018-07-29] MEDS: FUROSEMIDE 20 MG TAB PO SCH (08:55)
[2018-07-29] MEDS: BENZTROPINE MESYLATE 0.5 MG TAB PO SCH ×3 (08:55→20:40)
[2018-07-29] MEDS: LISINOPRIL 20 MG TAB PO SCH (08:55)
[2018-07-29] MEDS: HALOPERIDOL 5 MG TAB PO SCH (08:56)
--- NOTE | 2018-07-29 10:18 | P.NPCON ---
History of Present Illness - Reason for Consult acute renal failure - History of Present Illness Reason for consultation: Acute kidney injury History of present illness: Patient is a 72-year-old female seen in consultation for acute kidney injury and rhabdomyolysis. Patient's baseline creatinine is 1. It was elevated at 1.37 on admission yesterday. Patient is not a reliable historian. Apparently the patient was found down on the floor at her assisted living facility and was subsequently sent to the hospital. Her CK level was elevated at 2820. CT of the abdomen and pelvis with contrast was done which revealed no evidence of hydronephrosis. No fractures were noted. No acute changes were noted on CT of the brain. Hemodynamic patient is stable. She is maintained on normal saline at 100 mL an hour. She is also on lisinopril for blood pressure control. She is also on Lasix 20 mg daily. Blood pressure this morning was 126/74. No history of diabetes. I don't see any nephrotoxins and her home medications. Vital signs are stable. General: The patient appeared well nourished and normally developed. HEENT: Head exam is unremarkable. Neck is without jugular venous distension. LUNGS: Lungs are clear to auscultation and percussion. Breath sounds decreased. HEART: Rate and Rhythm are regular. First and second heart sounds normal. No murmurs, rubs or gallops. ABDOMEN: Abdominal exam reveals normal bowel sounds. Non-tender and non- distended. No evidence of peritonitis. EXTREMITITES: No clubbing, cyanosis, or edema. Past Medical History Past Medical History: Hypertension History of Any Multi-Drug Resistant Organisms: None Reported Past Surgical History: No Surgical Hx Reported Smoking Status: Never smoker - Past Family History Father Family Medical History: CVA/TIA, Diabetes Mellitus Medications and Allergies Home Medications Medication Instructions Recorded Confirmed Type Benztropine Mesylate 0.5 mg PO TID 06/14/18 07/28/18 History Haloperidol [Haldol] 5 mg PO DAILY 06/14/18 07/28/18 History Amantadine HCl [Amantadine] 100 mg PO DAILY 07/28/18 07/28/18 History Enalapril [Vasotec] 20 mg PO DAILY 07/28/18 07/28/18 History Furosemide [Lasix] 20 mg PO DAILY 07/28/18 07/28/18 History QUEtiapine FUMARATE [SEROquel] 300 mg PO HS 07/28/18 07/28/18 History amLODIPine [Norvasc] 10 mg PO HS 07/28/18 07/28/18 History Allergies Allergy/AdvReac Type Severity Reaction Status Date / Time No Known Allergies Allergy Verified 07/28/18 19:31 Physical Exam Vitals: Vital Signs Temp Pulse Pulse Resp BP BP Pulse Ox 07/29/18 08:00 97.5 F L 71 16 126/74 99 07/29/18 03:57 162/75 07/29/18 02:34 98 F 69 18 168/79 96 07/29/18 02:10 98.6 F 72 18 151/76 98 07/28/18 22:13 76 18 160/92 98 07/28/18 19:56 79 18 126/80 98 07/28/18 19:08 98 F 91 18 147/79 96 Intake and Output 07/28/18 07/29/18 07/29/18 22:59 06:59 14:59 Intake Total 0 Balance 0 Intake: Oral 0 Other: Voiding Method Diaper Incontinent # Voids 1 Weight 49.3 kg 52 kg Results - Lab Results Most recent lab results Calcium 9.5 mg/dL (8.4-10.2) 07/28/18 19:51 Magnesium 2.2 mg/dL (1.6-2.3) 07/28/18 19:51 07/28/18 19:03 07/28/18 19:51 Assessment and Plan Plan: Assessment: 1. Acute kidney injury mostly prerenal secondary to diuretics. Possibly mild component of rhabdomyolysis. Creatinine 1.37 on admission. Baseline creatinine near 0.6. 2. Mild rhabdomyolysis. CK level 2820 on admission. She does have moderate blood on her UA and 1 RBC which is suggestive of myoglobinuria. 3. Status post fall. No acute fractures noted. 4. Benign hypertension. Controlled. Plan: Maintain normal saline at 100 mL an hour. Hold Lasix. Hold lisinopril if systolic blood pressure less than 120. Repeat CK level today. Continue to monitor renal function and urine output. Thank you for the consultation. I will continue to follow the patient with you during her hospital stay.
[2018-07-29] MEDS: SODIUM CHLORIDE 0.9% 1,000 ML IV SCH ×2 (16:25→23:42)
--- NOTE | 2018-07-29 16:36 | XR ---
EXAMINATION TYPE: XR lumbosacral spine min 4V DATE OF EXAM: 07/29/2018 CLINICAL HISTORY: Back pain TECHNIQUE: Frontal, lateral, and oblique images of the lumbar spine are obtained. COMPARISON: None FINDINGS: There is a dextroscoliosis of the lumbar spine. There is slight bowing of the mid endplate of L4, likely on the basis of degenerative disc disease. There are 6 lumbar type vertebral bodies id entified. The lumbar spine shows satisfactory alignment without evidence of acute fracture or disloc ation. Vertebral body heights are within normal limits. The oblique images appear within normal thakkar its. There is minimal intervertebral disc space narrowing at multiple levels and small anterior oste ophytes as well as mild facet arthropathy. There is diffuse osseous demineralization noted. IMPRESSION: 1. No compression deformity is seen although slight bowing of the mid endplate of L4 is present and l ikely related to degenerative disc disease. 2. Moderate multilevel degenerative disc disease, dextroscoliosis of the lumbar spine, and diffuse os seous demineralization.
--- NOTE | 2018-07-29 16:59 | HP ---
HISTORY AND PHYSICAL DATE OF ADMISSION: 07/28/2018. DATE OF DICTATION: 07/29/2018 She is admitted on telemetry floor, monitored bed. AGE: [age] years old. The patient is seen today, evaluated and she came to the facility after they called the ambulance who brought her after they found her at the side of the bed and fell down. So, they admitted. Subsequently seen in the ER. She has past medical history of bipolar depression, anxiety, and chronic hypertension and venous stasis of the right lower extremity, which was treated. The patient has a history of recurrent fall and she has also stature goodson she is bending over and with the difficulty of ambulation. The patient is very hard to obtain history from her with the underlying tardive dyskinesia and lip masking and the speech disturbance due to her previous antipsychotic medication and the extrapyramidal effect. As patient admitted to the hospital and they did a CT scan which showed only brain atrophy. She has abrasions and speech slow and tardive. She was obtunded, but dehydrated initiated and she apparently was not eating where she has been as dependent. In the emergency room, they obtained a CT scan of the head was negative for stroke and she has cerebral atrophy and she has constipation. 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 At that time, she has edema 2+ and she had the chin tear and she has also tear on the side of the abdomen and that appeared at the time of the admission and admission also, her vital sign was indicating temperature 97.5, and heart was 71, regular, and oxygen saturation 99%. Her blood pressure 126/74 with respiratory rate was 16. At that time also she had laboratory indicating that BUN of 45 and creatinine 1.37 and her white count was elevated at 19.6. She was taking diuretics and diuretics probably make her more dehydrated. The patient is difficult to comply with the medication and to adjust her medication as well and her chest x-ray was negative and the lung was clear. She had history of lip masking. PAST MEDICAL HISTORY: She had past medical history of atrial fibrillation, GERD, hypertension. She had increased lip masking. SOCIAL HISTORY: She is single, never , and her brother is the caregiver, Mr. Aniket Min. She lives alone and she never smoked. No drink. Her psychiatrist, Dr. Pan, who does not come to the hospital and usually he is in the outpatient. ALLERGY: Unknown. She had history of recent admission to the [facility] followed by with a similar episode with fall and she is initiated and she is not eating. She used to be 241 pounds and now is around 115 pounds. Difficult to communicate. Difficult to be with people and difficult to attend any group feeding and we did not have any way to send her to psychiatric hospital and in the last time the psychiatrist thought that she is fine. The patient is progressively worsening and we will be consulting the Psychiatry. REVIEW OF SYSTEMS: The patient had a fall and an abrasion on the chin and several scratches as well as the abdomen and she is bent over when she walks. I am not clear if she has any spine problem and we will be obtaining a spinal total spine x-ray, thoracolumbar and sacral and cervical. On the review of systems, the patient did not verbalize that she has any pain and she had no chest pain. No abdominal pain, but questionable constipation that was considered. The patient did not have any testing for that. However, we will wait until we see if the patient eating or not. PHYSICAL EXAMINATION: VITAL SIGNS: The vital signs stable and at this time and we will be adjusting her medication. Currently, temperature 98.6, pulse 70 and pulse ox 98 percent. Blood pressure 144/69 and respiratory rate was 16. We will be planning for checking her BMP in the morning as well as the CBC with differential. On examination, the patient is conscious, alert, but unable to express herself clearly and she had the speech impediment that associated with the lip masking and tardive dyskinesia, and she had natural teeth and pupil was equal, reactive. Hearing was normal. Neck was supple. No JVD. No thyromegaly. No lymphadenopathy. Trachea midline. The chest was clear and loss of the intercostal muscle and loss of the chest muscle mass, and she appeared to be very emaciated, dehydrated. The lung was clear, however, with normal breath sounds. No wheezes. Heart PMI in the 5th intercostal space outside midclavicular line with normal S1, S2. No gallop. The abdomen was soft, nontender. Positive bowel sounds. EXTREMITIES: No edema. She had history of right leg venous ulcer was treated in the past by Dr. Golden with Deanna hallman. The pulses intact. She had onychomycosis of the toenail bilaterally. Neurologically, she has very difficulty of left hand movement and she can move her feet bilaterally. No neuro deficit. However, [facility] but we have a psychiatrist which we did consult the psychiatrist to evaluate the patient. Assessment for recurrent falling attack. Underlying dehydration and chronic kidney disease stage 3. We will be checking her UA culture and sensitivity if the initial one was negative, we will wait. Meanwhile we are going to get x-ray of the spine, thoracic and the lumbosacral to rule out any compression fracture. However, patient is not symptomatic with pain, but the changing of skeletal m .andRabdomyalysis and she is now nutritional deficit and loss of muscle mass. The computer is out of order and we could not get the data Her white count is 19.6 1000 and her CK is 2820 and troponin is 0.050. Underlying rhabdomyolysis. ASSESSMENT: 1. Major depression, bipolar and self neglect. 2. Rhabdomyolysis with frequent falls. 3. Underlying history of constipation and aneurysm. 4. Her CK is 2820 and a troponin 0.050 and repeat today the rhabdo is 4941 and her bilirubin also was elevated 1.4, and AST 167 and ALT 97, and her urinalysis was indicating that they have cloudy and the specific gravity 1.050 and moderate blood as well. Her carbon dioxide 23, and we will be planning for increasing IV fluid to 125 mL/hour. 0.9 normal saline and at this time starting her on antibiotic and probably Rocephin. 5. With the underlying added diagnosis urinary tract infection and rhabdomyolysis, chronic kidney disease stage 3 and hyperglycemia which her blood sugar was 181. Her creatinine was 1.37 and the BUN is 45. 6-frequent FALL 7-tardive Dyskinesia , extrapyramidal manifestation ,Tardivedyskinesia. plan: 1- [id number] with increase IV N.saline ageressivly 2-UTI IV antibiotic 3-CONSULT psychiatry for evaluation and change current tx. 4-consult neph. 5-consult neurology,not available 6- monitor CPK 7-H risk fall 8-x-ray of spine L-S ,dorsal ,duoto statur bendover forward Gait .which impair balance. MMODL / IJN: [id number] / [facility]
[2018-07-29] MEDS: amLODIPine 10 MG TAB PO SCH (20:39)
[2018-07-29] MEDS: QUEtiapine 100 MG TAB PO SCH (20:40)
[2018-07-30] MEDS: PANTOPRAZOLE 40 MG TABLET PO SCH (06:51)
[2018-07-30 07:07] LABS: HCT 31.7 % (34.0-46.0); MCH 31.3 pg (25.0-35.0); MCHC 32.2 g/dL (31.0-37.0); MCV 97.2 fL (80.0-100.0); Mean Platelet Volume 7.5; Platelet Count 136 k/uL (150-450); RBC 3.26 m/uL (3.80-5.40); RDW 12.9 % (11.5-15.5); WBC 9.3 k/uL (3.8-10.6)
[2018-07-30 07:08] LABS: Anion Gap 2 mmol/L; Blood Urea Nitrogen 24 mg/dL (7-17); Calcium 8.1 mg/dL (8.4-10.2); Carbon Dioxide 27 mmol/L (22-30); Chloride 113 mmol/L (98-107); Glucose 91 mg/dL (74-99); Potassium 3.9 mmol/L (3.5-5.1); Sodium 142 mmol/L (137-145)
[2018-07-30 07:16] LABS: Creatine Kinase 2706 U/L (30-135)
[2018-07-30 07:17] LABS: HGB 10.2 gm/dL (11.4-16.0)
[2018-07-30] MEDS: SODIUM CHLORIDE 0.9% 1,000 ML IV SCH ×2 (10:24→16:39)
[2018-07-30] MEDS: BENZTROPINE MESYLATE 0.5 MG TAB PO SCH ×3 (10:29→21:04)
[2018-07-30] MEDS: AMANTADINE HCL 100 MG CAP PO SCH ×2 (10:30→21:01)
[2018-07-30] MEDS: HALOPERIDOL 5 MG TAB PO SCH (11:06)
[2018-07-30] MEDS: LISINOPRIL 20 MG TAB PO SCH (11:09)
[2018-07-30] MEDS: FUROSEMIDE 20 MG TAB PO SCH (11:09)
--- NOTE | 2018-07-30 14:43 | P.PN ---
Subjective Progress Note Date: 07/30/18 (Rhabdomyolysis, left wrist drop, frequent falls) Principal diagnosis: #1 rhabdomyolysis with elevated CPK. #2 superficial skin laceration on the left side of the abdomen secondary to fall. #3 schizophrenia. #4 significant weight loss, weight initially was 241 pounds currently 115 pounds in the underlying psychotic changes indicating not eating. Patient gets Meals on Wheels and her apartment but she presented in the refrigerator and then 2 units. #5 left wrist drop with inability to use it. Rule out fracture, x-ray was ordered. #6 hypertension controlled. Objective - Vital Signs Vital signs: Vital Signs Temp 97.6 F 07/30/18 08:25 Pulse 68 07/30/18 08:25 Resp 16 07/30/18 08:25 BP 113/68 07/30/18 08:25 Pulse Ox 99 07/30/18 08:25 Intake & Output 07/29/18 07/30/18 07/30/18 18:59 06:59 18:59 Intake Total 1040 800 722 Output Total 800 Balance 1040 0 722 Weight 51.9 kg Intake: Intake, IV Titration 800 800 Amount Sodium Chloride 0.9% 1, 800 750 000 ml @ 125 mls/hr IV . Q8H [facility] Rx#:[id number] cefTRIAXone 1 gm In 50 Sodium Chloride 0.9% 50 ml @ 100 mls/hr IVPB Q12HR [facility] Rx#:[id number] Oral 240 722 Output: Urine 800 Other: Voiding Method Diaper Bedside Commode Incontinent # Voids 2 1 - Labs CBC & Chem 7: 07/30/18 06:19 07/30/18 06:19 Labs: Abnormal Lab Results - Last 24 Hours (Table) 07/30/18 07/30/18 Range/Units 06:19 06:19 RBC 3.26 L (3.80-5.40) m/uL Hgb 10.2 L D (11.4-16.0) gm/dL Hct 31.7 L (34.0-46.0) % Plt Count 136 L (150-450) k/uL Chloride 113 H (98-107) mmol/L BUN 24 H (7-17) mg/dL Calcium 8.1 L (8.4-10.2) mg/dL Creatine Kinase 2706 H* (30-135) U/L Microbiology - Last 24 Hours (Table) 07/29/18 02:03 Blood Culture - Preliminary Blood No Growth after 24 hours 07/28/18 21:15 Urine Culture - Final Urine,Catheterized
--- NOTE | 2018-07-30 14:55 | P.PN ---
Subjective Underlying progress note date of service 07/30/2018. Patient has anemia and we will check iron study. Rhabdomyolysis, CPK still elevated in the 20,000 range. Patient continued on hydration. Vitamin D3 lab ordered, patient has mild hypocalcemia with the decreased intake. Severe weight loss. Seen by the psychiatrist who I did talk to her today and the psychiatrist did spoke with Dr. Jero Pan and she advised to increase amantadine to twice a day 100 mg. The left hand drop and the patient appeared to be worried about it and patient also fell down and we will be checking growth the x-ray to rule out fracture. I did speak with the dietitian specialist for improving her diet with the significant weight loss. Psychiatrist recommended supervision and senior care placement. Left side abdominal laceration treated with Silvadene cream and dressing applied once a day. On examination patient is conscious alert now and able to communicate however she had the tardive dyskinesia and difficulty SPEECH, she has however normal computed tomography scan of the brain. She x-ray of the dorsal and lumbosacral spine with the advance it degenerative arthritis as well as facet arthropathy. HEENT was negative neck was supple and no JVD no thyromegaly no lymphadenopathy trachea midline. Chest clear to auscultation and percussion. Heart regular sinus rhythm. Abdomen soft positive bowel sounds with the maceration on the left side of the skin of the side. Extremities no edema and positive pulses history of the right leg venous ulcer in the past currently healed. Neurologically: Stable Psychiatry seen today by the psychiatrist Humberto or indicate that she needs supervision continuing her medication increasing the amantadine to 100 mg twice a day and the need for senior care. Assessment: And plan. Continue the current medication including IV and repeating the CPK to see if any continuously improved or not. Plan for senior care placement. Continuous supervision especially her left hand drop and she is right-handed Continue nutritional support. History of leukocytosis in the urine with the borderline UTI on antibiotic as well Objective - Vital Signs Vital signs: Vital Signs Temp 97.6 F 07/30/18 08:25 Pulse 68 07/30/18 08:25 Resp 16 07/30/18 08:25 BP 113/68 07/30/18 08:25 Pulse Ox 99 07/30/18 08:25 Intake & Output 07/29/18 07/30/18 07/30/18 18:59 06:59 18:59 Intake Total 1040 800 722 Output Total 800 Balance 1040 0 722 Weight 51.9 kg 51.9 kg Intake: Intake, IV Titration 800 800 Amount Sodium Chloride 0.9% 1, 800 750 000 ml @ 125 mls/hr IV . Q8H [facility] Rx#:[id number] cefTRIAXone 1 gm In 50 Sodium Chloride 0.9% 50 ml @ 100 mls/hr IVPB Q12HR [facility] Rx#:[id number] Oral 240 722 Output: Urine 800 Other: Voiding Method Diaper Bedside Commode Incontinent # Voids 2 1 - Labs CBC & Chem 7: 07/30/18 06:19 07/30/18 06:19 Labs: Abnormal Lab Results - Last 24 Hours (Table) 07/30/18 07/30/18 Range/Units 06:19 06:19 RBC 3.26 L (3.80-5.40) m/uL Hgb 10.2 L D (11.4-16.0) gm/dL Hct 31.7 L (34.0-46.0) % Plt Count 136 L (150-450) k/uL Chloride 113 H (98-107) mmol/L BUN 24 H (7-17) mg/dL Calcium 8.1 L (8.4-10.2) mg/dL Creatine Kinase 2706 H* (30-135) U/L Microbiology - Last 24 Hours (Table) 07/29/18 02:03 Blood Culture - Preliminary Blood No Growth after 24 hours 07/28/18 21:15 Urine Culture - Final Urine,Catheterized
--- NOTE | 2018-07-30 15:25 | P.CN ---
Psychiatric Consult - . Consult date: 07/30/18 Consult:: 07/30/18 15:12 Identification: Patient is a 72-year-old female who was found on the floor of her apartment in assisted living with an altered mental status and brought to the emergency room. Reason for Consult: Depression history of bipolar disorder History of Present Illness: Patient's chart was reviewed, the patient was discussed with Dr. Pan, her current treating psychiatrist, as well as her primary care physician and the patient was seen and interviewed in her room no family members were present. Patient states that she got dizzy and fell and doesn't remember much after that. She states that she lives in an assisted living facility and does not cook for herself. Patient states that she doesn't like the Meals on Wheels and has been losing weight. Patient could not tell me what occurred once she fell. Patient is now reporting that her left hand is drooping at the wrist and she is unable to use it and needs to support it with her right hand. Patient states that she does not have any aides who come in to assist her at the assisted living facility. Speaking with Dr. Pan the patient has a history of schizophrenia as well as tardive dyskinesia and she has been maintained on the outside on Haldol 5 mg da shaji, Seroquel 300 mg at bedtime and amantadine 100 mg twice a day to control her symptoms. Patient was recently in the psychiatric unit and then was recently also on the medical floor for another fall at her assisted living facility. Patient states that she is not currently hearing voices, reported no suicidal ideation and was more concerned about they inability to use her left hand stating that she can't feed herself and so needs to be placed in a alf when she is discharged. Past Psychiatric History: patient states that she's been treated for most of her adult life, she has had a recent psychiatric admission. Her most recent psychiatric meds are as stated above Past Medical/Surgical History: patient states she is being treated for hypertension and has no surgical history. Social History: Patient has never been , has no children and states that she only has 1 brother. She's been living in an assisted living facility and states that she has no caregivers or other aides. 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 Patient's brother is her legal guardian. Substance Use History: patient denies any alcohol or drug use history currently or in the past Mental status: Appearance/Attitude: Patient is sitting in a hospital bed in no acute distress, she is holding her left wrist with her right hand, she made intermittent eye contact and was cooperative Behavior: Patient did not exhibit any psychomotor agitation or retardation, involuntary movement of her mouth and face were noted during the exam Speech/Language: Patient's speech was spontaneous at times she stuttered, she spoke in a normal volume and was coherent Thought Process: Patient was goal-directed in her responses there is no evidence of loose associations or flight of ideas Thought Content: Patient denied that she was hearing voices or having visual hallucinations and no delusions were elicited. Patient was concerned about her inability to use her left hand, stating that she had an epileptic hand, concerned that she couldn't cut meat or feed herself. Patient stated that she had not been eating well at home Suicidal/Homicidal Ideation: Patient denied any current suicidal or homicidal ideation Sensorium/Cognition: Patient was alert and oriented to person and location and situation further cognitive testing was not performed Mood/Affect: Patient's mood was pleasant although slightly anxious and her affect was appropriate to her mood Insight/Judgment: Patient's insight and judgment are limited Assessment: I spoke with Dr. Pan prior to seeing the patient and he expressed concerns that the patient lost an extraordinary amount of weight recently, in speaking with her primary care physician he stated that the patient's prior weight was 220 pounds and that she currently weighs 115 pounds. Patient is living in assisted living without any assistance and does not eat her meals on wheels that arrived she stated to me that it was because they arrived at noon and she didn't feel like eating and later in the evening. Patient has a history of schizophrenia and has been treated for a number of years and does have evidence of tardive dyskinesia. Patient was currently admitted and per her primary care physician she also had a urinary tract infection on admission. Patient sustained an abrasion on her left side as well as having evidence of rhabdomyolysis on laboratory studies. Patient herself stated that she did not think she could return to the assisted living facility and per her primary care placement when she was at a alf in the past she did well eating gaining weight. Laboratory Last Values WBC 9.3 k/uL (3.8-10.6) 07/30/18 06: RBC 3.26 m/uL (3.80-5.40) L 07/30/18 06: Hgb 10.2 gm/dL (11.4-16.0) L D 07/30/18 06:19 Hct 31.7 % (34.0-46.0) L 07/30/18 06: MCV 97.2 fL (80.0-100.0) 07/30/18 06: MCH 31.3 pg (25.0-35.0) 07/30/18 06: MCHC 32.2 g/dL (31.0-37.0) 07/30/18: RDW 12.9 % (11.5-15.5) 07/30/18 06: Plt Count 136 k/uL (150-450) L 07/30/18 06: Neutrophils % 91 % 07/28/18 19:03 Lymphocytes % 1 % 07/28/18 19:03 Monocytes % 6 % 07/28/18 19:03 Eosinophils % 1 % 07/28/18 19:03 Basophils % 0 % 07/28/18 19:03 Neutrophils # 17.9 k/uL (1.3-7.7) H 07/28/18 19:03 Lymphocytes # 0.3 k/uL (1.0-4.8) L 07/28/18 19:03 Monocytes # 1.2 k/uL (0-1.0) H 07/28/18 19:03 Eosinophils # 0.1 k/uL (0-0.7) 07/28/18 19:03 Basophils # 0.1 k/uL (0-0.2) 07/28/18 19:03 PT 10.4 sec (9.0-12.0) 07/28/18 19:03 INR 1.0 (<1.2) 07/28/18 19:03 APTT 20.2 sec (22.0-30.0) L 07/28/18 19:03 Sodium 142 mmol/L (137-145) 07/30/18 06:19 Potassium 3.9 mmol/L (3.5-5.1) 07/30/18 06:19 Chloride 113 mmol/L (98-107) H 07/30/18 06:19 Carbon Dioxide 27 mmol/L (22-30) 07/30/18 06:19 Anion Gap 2 mmol/L 07/30/18 06:19 BUN 24 mg/dL (7-17) H 07/30/18 06:19 Creatinine 0.76 mg/dL (0.52-1.04) 07/30/18 06:19 Est GFR (CKD-EPI)AfAm >90 (>60 ml/min/1.73 sqM) 07/30/18 06:19 Est GFR (CKD-EPI)NonAf 79 (>60 ml/min/1.73 sqM) 07/30/18 06:19 Glucose 91 mg/dL (74-99) 07/30/18 06:19 Calcium 8.1 mg/dL (8.4-10.2) L 07/30/18 06:19 Magnesium 2.0 mg/dL (1.6-2.3) 07/30/18 06:19 Total Bilirubin 1.4 mg/dL (0.2-1.3) H 07/28/18 19:51 AST 167 U/L (14-36) H 07/28/18 19:51 ALT 97 U/L (9-52) H 07/28/18 19:51 Alkaline Phosphatase 46 U/L (38-126) 07/28/18 19:51 Ammonia 19 umol/L (<30) 07/28/18 19:03 Creatine Kinase 2706 U/L (30-135) H* 07/30/18 06:19 Troponin I 0.050 ng/mL (0.000-0.034) H* 07/28/18 19:51 Total Protein 7.2 g/dL (6.3-8.2) 07/28/18 19:51 Albumin 4.3 g/dL (3.5-5.0) 07/28/18 19:51 Urine Color Yellow 07/28/18 21:15 Urine Appearance Cloudy (Clear) H 07/28/18 21:15 Urine pH 5.5 (5.0-8.0) 07/28/18 21:15 Ur Specific [place] 1.050 (1.001-1.035) H 07/28/18 21:15 Urine Protein 1+ (Negative) H 07/28/18 21:15 Urine Glucose (UA) Negative (Negative) 07/28/18 21:15 Urine Ketones Negative (Negative) 07/28/18 21:15 Urine Blood Moderate (Negative) H 07/28/18 21:15 Urine Nitrite Negative (Negative) 07/28/18 21:15 Urine Bilirubin Negative (Negative) 07/28/18 21:15 Urine Urobilinogen <2.0 mg/dL (<2.0) 07/28/18 21:15 Ur Leukocyte Esterase Negative (Negative) 07/28/18 21:15 Urine RBC 1 /hpf (0-5) 07/28/18 21:15 Urine WBC 6 /hpf (0-5) H 07/28/18 21:15 Amorphous Sediment Occasional /hpf (None) H 07/28/18 21:15 Hyaline Casts 36 /lpf (0-2) H 07/28/18 21:15 Granular Casts 10 /lpf (0) 07/28/18 21:15 Urine Mucus Few /hpf (None) H 07/28/18 21:15 Diagnosis: schizophrenia Plan: patient should continue on Haldol 5 mg daily, Seroquel 300 mg at bedtime and I will increase the amantadine to 100 mg twice a day to target her tardive dyskinesia per Dr. Pan's recommendation. Patient is currently stable on these medications and I see no need to adjust the Haldol or Seroquel at this time. I spoke with social work regarding Dr. Pan's recommendation that the patient needs to be in a supervised living situation on discharge and her primary care physician has also discussed with the patient that she will be going to a alf at the time of discharge. I spoke with the squadron worker regarding speaking with her brother who is her legal guardian regarding these recommendations due to the patient's recent 2 falls as well as her weight loss of about 100 pounds over the last year or so. There are any further questions or concerns please don't hesitate to contact me I will sign off the case. 07/30/18 15:13 07/30/18 15:24
--- NOTE | 2018-07-30 17:52 | XR ---
EXAMINATION TYPE: XR wrist complete LT DATE OF EXAM: 07/30/2018 COMPARISON: NONE HISTORY: Wrist pain TECHNIQUE: 4 views FINDINGS: Carpal bones appear intact. I see no fracture nor dislocation. There are no erosions. There is minor spur formation. IMPRESSION: Minimal osteoarthritis. No fracture seen.
--- NOTE | 2018-07-30 18:09 | PN ---
PROGRESS NOTE Patient is seen for followup for acute kidney injury. She is currently doing better. Creatinine is down to 0.76 mg/dL. On examination this morning, blood pressure was 113/68, heart rate of about 70 per minute. Patient is afebrile. EXAMINATION OF THE HEART: S1 and S2. EXAMINATION OF LUNGS: Bilateral breath sounds are heard. ABDOMEN: Soft, non-tender. Examination of lower extremities shows no significant edema. REGISTERED N[employer]SE [employer] M[employer]OW [employer]ANSPLANT exam is grossly intact. Labs show sodium 142, potassium 3.9, BUN 24, serum creatinine 0.76, hemoglobin 10.2 g/dL. ASSESSMENT: 1. Acute kidney injury, acute tubular necrosis, currently improved. 2. Rhabdomyolysis, improving. 3. Status post fall. PLAN: Encourage increased oral intake. Decrease IV fluids. May continue with RICK inhibitors. MMODL / IJN: [id number] /
[2018-07-30] MEDS: amLODIPine 10 MG TAB PO SCH (21:01)
[2018-07-30] MEDS: QUEtiapine 100 MG TAB PO SCH (21:01)
[2018-07-31 06:21] LABS: Basophils # (A) 0.1 k/uL (0-0.2); Basophils % (A) 1 %; Eosinophils # (A) 0.4 k/uL (0-0.7); Eosinophils % (A) 6 %; HCT 30.2 % (34.0-46.0); HGB 10.1 gm/dL (11.4-16.0); Lymphocytes % (A) 15 %; MCH 32.2 pg (25.0-35.0); MCHC 33.5 g/dL (31.0-37.0); Mean Platelet Volume 7.8; Monocytes # (A) 0.5 k/uL (0-1.0); Monocytes % (A) 7 %; Neutrophils # (A) 4.8 k/uL (1.3-7.7); Neutrophils % (A) 70 %; Platelet Count 134 k/uL (150-450); RBC 3.15 m/uL (3.80-5.40); RDW 13.6 % (11.5-15.5); WBC 6.9 k/uL (3.8-10.6)
[2018-07-31 06:36] LABS: Anion Gap 3 mmol/L; Blood Urea Nitrogen 21 mg/dL (7-17); Calcium 7.7 mg/dL (8.4-10.2); Carbon Dioxide 23 mmol/L (22-30); Chloride 114 mmol/L (98-107); Glucose 95 mg/dL (74-99); Potassium 4.3 mmol/L (3.5-5.1); Sodium 140 mmol/L (137-145)
[2018-07-31] MEDS: SODIUM CHLORIDE 0.9% 1,000 ML IV SCH ×2 (10:14→19:09)
[2018-07-31] MEDS: BENZTROPINE MESYLATE 0.5 MG TAB PO SCH ×3 (10:15→21:14)
[2018-07-31] MEDS: LISINOPRIL 20 MG TAB PO SCH (10:15)
[2018-07-31] MEDS: FUROSEMIDE 20 MG TAB PO SCH (10:15)
--- NOTE | 2018-07-31 11:05 | P.PN ---
Subjective Patient is seen in follow-up for acute kidney injury which has resolved. GFR is back to baseline. Patient was noted to have mild rhabdomyolysis and CK levels have been trending down. Oral intake is fair. No vomiting or diarrhea. Vital signs are stable. General: The patient appeared well nourished and normally developed. HEENT: Head exam is unremarkable. Neck is without jugular venous distension. LUNGS: Lungs are clear to auscultation and percussion. Breath sounds decreased. HEART: Rate and Rhythm are regular. First and second heart sounds normal. No murmurs, rubs or gallops. ABDOMEN: Abdominal exam reveals normal bowel sounds. Non-tender and non- distended. No evidence of peritonitis. EXTREMITITES: No clubbing, cyanosis, or edema. Objective - Vital Signs Vital signs: Vital Signs Temp 99.1 F 07/31/18 05:21 Pulse 103 H 07/31/18 05:21 Resp 16 07/31/18 05:21 BP 118/61 07/31/18 05:21 Pulse Ox 95 07/31/18 05:21 Intake & Output 07/30/18 07/31/18 07/31/18 18:59 06:59 18:59 Intake Total 722 2000 480 Output Total 650 2500 Balance 72 -500 480 Weight 51.9 kg 55.5 kg Intake: Intake, IV Titration 2000 Amount Sodium Chloride 0.9% 1, 2000 000 ml @ 125 mls/hr IV . Q8H [facility] Rx#:[id number] Oral 722 480 Output: Urine 650 2500 Other: Voiding Method Bedside Commode Bedside Commode # Voids 2 - Labs CBC & Chem 7: 07/31/18 06:06 07/31/18 06:06 Labs: Abnormal Lab Results - Last 24 Hours (Table) 07/31/18 07/31/18 Range/Units 06:06 06:06 RBC 3.15 L (3.80-5.40) m/uL Hgb 10.1 L (11.4-16.0) gm/dL Hct 30.2 L (34.0-46.0) % Plt Count 134 L (150-450) k/uL Chloride 114 H (98-107) mmol/L BUN 21 H (7-17) mg/dL Calcium 7.7 L (8.4-10.2) mg/dL Microbiology - Last 24 Hours (Table) 07/29/18 02:03 Blood Culture - Preliminary Blood No Growth after 48 hours Assessment and Plan Plan: Assessment: 1. Acute kidney injury mostly prerenal secondary to diuretics. Possibly mild component of rhabdomyolysis. Creatinine 1.37 on admission. Resolved. GFR back to baseline. 2 Mild rhabdomyolysis. CK level peaked at 4941 and was 2706 as of yesterday. She does have moderate blood on her UA and 1 RBC which is suggestive of myoglobinuria. 3. Status post fall. No acute fractures noted. 4. Benign hypertension. Controlled. Plan: I will decrease the rate of normal saline to 75 mL an hour. Repeat CK level today. Encouraged oral intake. Hold lisinopril if systolic blood pressure less than 120.
--- NOTE | 2018-07-31 11:30 | XR ---
EXAMINATION TYPE: XR shoulder complete LT DATE OF EXAM: 07/31/2018 COMPARISON: NONE HISTORY: Limited Range of Motion. Left shoulder pain from fall TECHNIQUE: Three views are submitted. FINDINGS: The osseous structures are intact. There is slight anterior subluxation of the humeral head. Arthrop athy of the AC joint. IMPRESSION: 1. Slight anterior subluxation of the humeral head could not exclude a subtle dislocation recommend C T of the left shoulder.
[2018-07-31 11:33] LABS: Iron Saturation 22.9 (12.00-45.00)
[2018-07-31 11:43] LABS: Vitamin D 25 Hydroxy 21.8 ng/mL (30.0-100.0)
--- NOTE | 2018-07-31 12:34 | US ---
EXAMINATION TYPE: US venous doppler duplex UE LT DATE OF EXAM: 07/31/2018 COMPARISON: US CLINICAL HISTORY: DVT . DVT per order. Arm swelling. SIDE PERFORMED: Left Left Arm: No evidence of DVT in the left upper extremity at this time. Spontaneous flow and normal compressibility is noted within the visualized structures. IMPRESSION: No diagnostic evidence of DVT as visualized
[2018-07-31] MEDS: PANTOPRAZOLE 40 MG TABLET PO SCH (12:38)
[2018-07-31] MEDS: HALOPERIDOL 5 MG TAB PO SCH (12:38)
[2018-07-31] MEDS: AMANTADINE HCL 100 MG CAP PO SCH ×2 (12:38→21:14)
--- NOTE | 2018-07-31 16:26 | CT ---
EXAMINATION TYPE: CT shoulder LT wo con DATE OF EXAM: 07/31/2018 COMPARISON: 07/31/2018 images HISTORY: Possible left shoulder dislocation. CT DLP: 261.2 mGycm Automated exposure control for dose reduction was used. TECHNIQUE: Axial images 3 mm thick sections. Reconstructed images in the coronal and sagittal plane a re reviewed on the computer. FINDINGS: Humeral head articulates with the glenoid. Joint space appears preserved. No acute fractures are evid ent. Acromioclavicular junction is normal. Scapula and clavicle appear intact. Ribs appear unremarkable. L rosas windows within the [id number] are unremarkable. IMPRESSION: NO SUSPICIOUS DISLOCATION OR SUBLUXATION LEFT SHOULDER.
--- NOTE | 2018-07-31 18:03 | P.PN ---
Subjective Progress Note Date: 07/31/18 (Rhabdomyolysis improving) Principal diagnosis: #1 rhabdomyolysis with elevated CPK. #2 superficial skin laceration on the left side of the abdomen secondary to fall. #3 schizophrenia. #4 significant weight loss, weight initially was 241 pounds currently 115 pounds in the underlying psychotic changes indicating not eating. Patient gets Meals on Wheels and her apartment but she presented in the refrigerator and then 2 units. #5 left wrist drop with inability to use it. Rule out fracture, x-ray was ordered. #6 hypertension controlled. This is dictation on the progress note date of service 07/31/[address] Gill. Patient complaint with the left breast drop and was swollen and warm, we did consult Dr. Richard orthopedic surgeon for evaluation and treatment. X-ray of the right breast was negative, x-ray of the elbow was negative, and her arm on the left side suspicious of swelling, we did the DVT of the left upper extremities which was negative, and x-ray of the left shoulder as the patient fell down at home on the left side, was suspicious of dislocation and recommended a computed tomography scan of the left shoulder, which was done but was negative no dislocation. We did not have yet the opinion of Dr. Richard or Dr. Moyer the orthopedic surgeon on Y her left hand drop and she could not move it as usual. On exam her vital sign her temperature this morning was 99.1 orally and subsequently she was exemplary 99.6. We discontinued the IV antibiotic with the negative urine no growth after 18 hour. And blood culture no growth after 48 hour period Her white count WBC 6.9, hemoglobin is 10.1, platelet count 134. His estimated glomerular filtration rate more than 90 on admission was 38 with the history of acute renal injury secondary to rhabdomyolysis and recovered and IV fluid decrease by the nephrology consultation to 70 mL an hour. Creatinine kinase dropped to 1117 9 which was peaked up to 4941 and progressively improving. Hypocalcemia with drop serum calcium to 7.7, and we find out that her vitamin D 25-hydroxy 21.8 with the underlying vitamin D deficiency/insufficiency Patient started on vitamin D3 2000 international unit capsule once daily. Patient has significant weight loss secondary to her psychiatric disorder she schizophrenia however her total protein 7.2 and albumin 4.3, she used to be 241 pounds and currently she is 55.5 kg around 1:15 pounds with significant weight loss. Her gait is bending over or apparently associated with advanced degenerative arthritis of the spine and we did x-ray revealed this finding no compression deformity. Underlying abnormal liver enzyme with the total bilirubin 1.4, AST 167 and a LT 97 however the alk phos 46. Mild anemia, serum iron 49 and total iron binding capacity TIBC 214 which is low and iron saturation was 22.9 which is normal Patient started on iron sulfate 324 mg tablet once daily. Current examination: Patient request to go to [facility] because of her inability to use her left hand as well as the associated depression and schizophrenia and inability to eat and on her previous admission to alf she did very well and the marketed improvement and actually she need long-term alf admission. HEENT: Head was normocephalic and atraumatic pupil was equal reactive and conjunctiva was pink sclera was nonicteric. Neck was supple no JVD no thyromegaly no lymphadenopathy trachea midline. Chest clear to auscultation and percussion no wheezes no rhonchi's. Heart: Regular sinus rhythm no evidence of chest pain or anginal pain. Abdomen she had skin scrapping or less induration on the left side of the lower abdomen associated with her fall at home treated with silver Silvadene cream and applying gauze once daily. The abdomen no tenderness and positive bowel sounds. Extremities no edema however her left wrist drop and we consulted the orthopedic surgeon to evaluate and we did multiple x-rays as mentioned above. Unfortunately we don't have a neurologist rounding in the hospital to consult. And if needed will do it as outpatient from the [facility]. Assessment and plan: #1 rhabdomyolysis gradually improving. #2 [place]. Also was frequent fall #3 significant weight loss associated with not eating and need personal encouragement. #4 seen by psychiatrist Humberto recommended supervision and continue with the current medication Dr. Manasa turpin. #5 with the gait bending over with degenerative arthritis of the spine, need for further rehabilitation and subsequent permanent admission to the alf. #6 history of hypertension stable, nephrology he discontinue the RICK inhibitor. #7 will check tomorrow this CK and also plan for transfer tomorrow Lissa was continuing to ranging of eating and continued for oral hydration. Objective - Vital Signs Vital signs: Vital Signs Temp 99.6 F 07/31/18 08:00 Pulse 102 H 07/31/18 08:00 Resp 18 07/31/18 08:00 BP 118/56 07/31/18 08:00 Pulse Ox 96 07/31/18 08:00 Intake & Output 07/30/18 07/31/18 07/31/18 18:59 06:59 18:59 Intake Total 722 2000 1920 Output Total 650 2500 Balance 72 -500 1920 Weight 51.9 kg 55.5 kg Intake: Intake, IV Titration 2000 Amount Sodium Chloride 0.9% 1, 2000 000 ml @ 75 mls/hr IV . [id number] [facility] Rx#:[id number] Oral 722 1920 Output: Urine 650 2500 Other: Voiding Method Bedside Commode Bedside Commode Bedside Commode # Voids 2 3 # Bowel Movements 1 - Labs CBC & Chem 7: 07/31/18 06:06 07/31/18 06:06 Labs: Abnormal Lab Results - Last 24 Hours (Table) 07/31/18 07/31/18 07/31/18 Range/Units 06:06 06:06 06:06 RBC 3.15 L (3.80-5.40) m/uL Hgb 10.1 L (11.4-16.0) gm/dL Hct 30.2 L (34.0-46.0) % Plt Count 134 L (150-450) k/uL Chloride 114 H (98-107) mmol/L BUN 21 H (7-17) mg/dL Uric Acid (3.7-7.4) mg/dL Calcium 7.7 L (8.4-10.2) mg/dL Iron 49 L (50-170) ug/dL TIBC 214 L (228-460) ug/dL Creatine Kinase (30-135) U/L Vitamin D 25-Hydroxy 21.8 L (30.0-100.0) ng/mL 07/31/18 Range/Units 06:06 RBC (3.80-5.40) m/uL Hgb (11.4-16.0) gm/dL Hct (34.0-46.0) % Plt Count (150-450) k/uL Chloride (98-107) mmol/L BUN (7-17) mg/dL Uric Acid 3.0 L (3.7-7.4) mg/dL Calcium (8.4-10.2) mg/dL Iron (50-170) ug/dL TIBC (228-460) ug/dL Creatine Kinase 1179 H* (30-135) U/L Vitamin D 25-Hydroxy (30.0-100.0) ng/mL Microbiology - Last 24 Hours (Table) 07/29/18 02:03 Blood Culture - Preliminary Blood No Growth after 48 hours
[2018-07-31] MEDS: CHOLECALCIFEROL 1,000 UNIT TAB PO SCH (19:09)
[2018-07-31] MEDS: amLODIPine 10 MG TAB PO SCH (21:13)
[2018-07-31] MEDS: QUEtiapine 100 MG TAB PO SCH (21:14)
[2018-08-01] MEDS: PANTOPRAZOLE 40 MG TABLET PO SCH (06:12)
--- NOTE | 2018-08-01 09:06 | P.PN ---
Subjective Patient is seen in follow-up for acute kidney injury which has resolved. GFR is back to baseline. Patient was noted to have mild rhabdomyolysis and CK levels have been trending down. Oral intake is fair. No vomiting or diarrhea. Vital signs are stable. General: The patient appeared well nourished and normally developed. HEENT: Head exam is unremarkable. Neck is without jugular venous distension. LUNGS: Lungs are clear to auscultation and percussion. Breath sounds decreased. HEART: Rate and Rhythm are regular. First and second heart sounds normal. No murmurs, rubs or gallops. ABDOMEN: Abdominal exam reveals normal bowel sounds. Non-tender and non- distended. No evidence of peritonitis. EXTREMITITES: No clubbing, cyanosis, or edema. Objective - Vital Signs Vital signs: Vital Signs Temp 98.4 F 08/01/18 05:20 Pulse 77 08/01/18 05:20 Resp 16 08/01/18 05:20 BP 106/53 08/01/18 05:20 Pulse Ox 97 08/01/18 05:20 Intake & Output 07/31/18 08/01/18 08/01/18 18:59 06:59 18:59 Intake Total 3528 600 480 Output Total 1100 Balance 3528 -500 480 Weight 60 kg Intake: Intake, IV Titration 600 Amount Sodium Chloride 0.9% 1, 600 000 ml @ 75 mls/hr IV . [id number] [facility] Rx#:[id number] Oral 3528 480 Output: Urine 1100 Other: Voiding Method Bedside Commode Bedside Commode Incontinent # Voids 1 1 # Bowel Movements 1 - Labs CBC & Chem 7: 07/31/18 06:06 07/31/18 06:06 Labs: Abnormal Lab Results - Last 24 Hours (Table) 07/31/18 07/31/18 Range/Units 06:06 06:06 Uric Acid 3.0 L (3.7-7.4) mg/dL Iron 49 L (50-170) ug/dL TIBC 214 L (228-460) ug/dL Creatine Kinase 1179 H* (30-135) U/L Vitamin D 25-Hydroxy 21.8 L (30.0-100.0) ng/mL Microbiology - Last 24 Hours (Table) 07/29/18 02:03 Blood Culture - Preliminary Blood No Growth after 72 hours Assessment and Plan Plan: Assessment: 1. Acute kidney injury mostly prerenal secondary to diuretics. Possibly mild component of rhabdomyolysis. Creatinine 1.37 on admission. Resolved. GFR back to baseline. 2 Mild rhabdomyolysis. CK level peaked at 4941 and was 1179 as of yesterday. She does have moderate blood on her UA and 1 RBC which is suggestive of myoglobinuria. 3. Status post fall. No acute fractures noted. 4. Benign hypertension. Controlled. Plan: Maintain normal saline at 75 mL an hour. Encouraged oral intake. Hold lisinopril if systolic blood pressure less than 120. Stable to be discharged to rehab from nephrology standpoint.
[2018-08-01] MEDS: HALOPERIDOL 5 MG TAB PO SCH (09:59)
[2018-08-01] MEDS: BENZTROPINE MESYLATE 0.5 MG TAB PO SCH (09:59)
[2018-08-01] MEDS: CHOLECALCIFEROL 1,000 UNIT TAB PO SCH (09:59)
[2018-08-01] MEDS: AMANTADINE HCL 100 MG CAP PO SCH (09:59)
--- NOTE | 2018-08-01 10:31 | P.CNOR ---
History of Present Illness - [facility] Consult date: 08/01/18 Consult reason: joint pain History of present illness: Patient is a 72-year-old female who was admitted to [facility] on 07/28/2018 with multiple medical issues. Apparently patient had a fall a few days prior, she was found on the floor, and she was on the floor for about 2 days. She was found to be in rhabdomyolysis when she left the hospital, she was admitted to the hospital with multiple medical specialties on consult. Multiple x-rays were done of the left upper extremity. There is concern for possible subluxation versus dislocation of the shoulder. CT images were done of the shoulder which demonstrated no acute fractures or dislocations. Patient was evaluated today at bedside, she is resting comfortably. Achieving a history was somewhat difficult due to her other medical issues. She states that she's having no pain with the left upper extremity. Internal medicine did notice a wrist drop on the left side. Review the chart demonstrated no previous surgery involving the left upper extremity. Review of Systems Constitutional: Reports as per [facility] Past Medical History Past Medical History: Hypertension History of Any Multi-Drug Resistant Organisms: None Reported Past Surgical History: No Surgical Hx Reported Smoking Status: Never smoker - Past Family History Father Family Medical History: CVA/TIA, Diabetes Mellitus Medications and Allergies Home Medications Medication Instructions Recorded Confirmed Type Benztropine Mesylate 0.5 mg PO TID 06/14/18 07/28/18 History Haloperidol [Haldol] 5 mg PO DAILY 06/14/18 07/28/18 History Amantadine HCl [Amantadine] 100 mg PO DAILY 07/28/18 07/28/18 History Enalapril [Vasotec] 20 mg PO DAILY 07/28/18 07/28/18 History Furosemide [Lasix] 20 mg PO DAILY 07/28/18 07/28/18 History QUEtiapine FUMARATE [SEROquel] 300 mg PO HS 07/28/18 07/28/18 History amLODIPine [Norvasc] 10 mg PO HS 07/28/18 07/28/18 History Allergies Allergy/AdvReac Type Severity Reaction Status Date / Time No Known Allergies Allergy Verified 07/28/18 19:31 Physical Examination Left upper extremity: No open lesions or sores present throughout the left upper extremity Soft tissue swelling present around the elbow and into the forearm Medical areas of erythema present Gentle range of motion of the shoulder reproduces pain, gentle range of motion of the elbow reproduces no pain, gentle range of motion of the hand and wrist reproduced no pain Obvious wrist drop is present She is able to wiggle the fingers and minimal difficulty, she can squeeze my hand, there is notable weakness She can lift the arm with forward elevation and abduction of the shoulder with minimal difficulty Her sensory exam to light touch throughout extremities intact Her radial pulses 2+ Her soft tissue compartments of the upper extremity are soft Results - Labs Labs: Abnormal Lab Results - Last 24 Hours (Table) 07/31/18 07/31/18 Range/Units 06:06 06:06 Uric Acid 3.0 L (3.7-7.4) mg/dL Iron 49 L (50-170) ug/dL TIBC 214 L (228-460) ug/dL Creatine Kinase 1179 H* (30-135) U/L Vitamin D 25-Hydroxy 21.8 L (30.0-100.0) ng/mL Microbiology - Last 24 Hours (Table) 07/29/18 02:03 Blood Culture - Preliminary Blood No Growth after 72 hours H & H 07/28/18 07/30/18 07/31/18 Range/Units 19:03 06:19 06:06 Hgb 13.7 D 10.2 L D 10.1 L (11.4-16.0) gm/dL Hct 40.4 31.7 L 30.2 L (34.0-46.0) % Coagulation 07/28/18 Range/Units 19:03 INR 1.0 (<1.2) Result Diagrams: 07/31/18 06:06 07/31/18 06:06 Assessment and Plan Plan: Imaging: Multiple x-rays of the left upper extremity were done, this including hand and wrist, elbow, shoulder, along with CT of the shoulder. Images demonstrated no acute fractures or dislocations Assessment: 1. Left wrist drop 2. Left radial nerve palsy 3. Rhabdomyolysis, recent fall with extended period of time of laying on left side 4. Multiple medical comorbidities Plan: I was able to discuss the physical exam findings and imaging studies with my attending Dr. Moyer. Wrist drop is likely due to radial nerve palsy due to recent fall with extended period of time of laying on the left side. Recommend physical therapy evaluation and treatment after being discharged to rehab Prescription was placed for cockup wrist splint No orthopedic surgical intervention Plan for follow-up in a few weeks with Dr. Moyer in the outpatient setting Time with Patient: Less than 30
[2018-08-01] MEDS ORDERED: FERROUS SULFATE 325 MG TAB PO SCH (12:00)
--- NOTE | 2018-08-01 12:54 | P.DS ---
Providers Date of admission: 07/28/18 20:58 Expected date of discharge: 08/01/18 Attending physician: Adi Gill Consults: 07/28/18 20:59 Consult Physician Routine Consulting Provider: Tanika Tolliver Consult Reason/Comments: rhabdo Do you want consulting provider notified?: Yes 07/29/18 08:00 Consult Physician Routine Consulting Provider: Jeanette Alonso Consult Reason/Comments: depression, history of bipolar/schizophrenia Do you want consulting provider notified?: Already Contacted 07/31/18 15:04 Consult Physician Urgent Consulting Provider: Keven Moyer Consult Reason/Comments: shoulder pain Do you want consulting provider notified?: Already Contacted Primary care physician: Adi Gill Discharge diagnoses: #1. Rhabdomyolysis secondary to fall, full risk, improving. #2 left radial pulse he with the left hand drop secondary to the fall. Need for further rehabilitation. #3 schizophrenia was Stopped Eating. #4 lost some muscle mass and weight loss from 241-115 pounds. With normal protein and albumin. 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 #6 dehydration. #7 currently hypotensive has been adjusted her medication with the discontinuation of amlodipine and lisinopril and to be monitored her blood pressure daily in the [facility] current blood pressure 106/53. #7 acute kidney injury. I'll secondary to diuretics which discontinued as well. #8 negative urine culture. #9 benign hypertension. #10 psychiatric consultation with the recommendation outpatient supervision and continuing on her current medication Haldol 5 mg daily increase the amantadine 200 mg twice a day. As the psychiatry consultation done by Dr. Crockett. #[address] Maria R Mayo orthopedic surgeon seen by HIEN Quiroga with the diagnoses left wrist drop and left radial nerve palsy. #12 vitamin D3 insufficiency. #13 she had laceration on the abdomen and the left side of the skin treated with silver Silvadene cream and gauze once daily. #14 she had tardive dyskinesia with the extra pyramidal adverse effect of her medication chronically present with lip masking. Patient presentation to the ER: [place]ruit by ambulance from her apartment after they found her fell down on her left side and obtundation and dehydrated and cachectic, with rhabdomyolysis and the CPK was progressively elevated from 5067-6099. Patient admitted to the hospital so elevated BUN and creatinine and consultation with nephrology Dr. Peters and hydration her urine was suspicious of infection started on antibiotic until the culture was obtained. Annual Hospital course: Patient hydrated seen by nephrology, patient recovered anterior renal function returned to the normal and her medication is adjusted as well, her hypertension become hypo-tension and medicine adjusted accordingly. And to be continued to be monitored in the long-term. Patient complaining of drop of her left hand, she is right handed, we consulted orthopedic doctor, and his PA did see the patient and ordered splint of the left hand. The CPK has been gradual improvement and the patient more conscious alert oriented 3 and the she request to be in [facility] and she has been there before, with the psychiatry recommended to be supervised all the time and needs to be for long-term long-term. Examination on the discharge: Patient conscious alert oriented 3 her computed tomography scan on admission was negative. HEENT negative currently able to eat and swallow with the encouragement needed and occasional acute care nursing assistant support, natural teeth normal swallowing. Normal hearing. Neck was supple no JVD no thyromegaly no lymphadenopathy trachea midline. Chest clear to auscultation and percussion. Heart: Regular sinus rhythm. Abdomen soft positive bowel sound. However she had skin laceration from the left side midline exempla to almost the umbilicus treated with silver Silvadene cream and covered with gauze with good healing. Extremities no edema and positive pulses and she had the right foot was treated in the past by Dr. Golden. Psychiatry: Schizophrenia with exacerbation intermittently and recommendation from to psychiatrist Dr. Pan and as well as the psychiatry hospitalist Dr. Jeanette fletcher for permanent supervision and the need for long-term placement. Neurologically: She had a tardive dyskinesia chronically with the extra pyramidal effect of her medication. Assessment and plan: Patient stable general condition , transferred to [facility] and rehab, and I'll be following the patient in the long-term. Continue the current medication: #1 amantadine 100 mg twice a day. #2 amlodipine discontinued #3 Cogentin 0.5 mg 3 times a day #4 vitamin D3 2000 unit by mouth daily gelatinous yellow. #5 ferrous sulfate 325 mg once daily. #6 Haldol 5 mg daily in a.m. #7 pantoprazole sodium 40 mg capsule before meals breakfast #8 Seroquel 300 mg daily at bedtime daily. #9 silver Diazine cream topical on the left lower abdomen laceration once daily and applying gauze. Discontinued medication: Amlodipine, little lisinopril, Blood pressure check daily. Patient Condition at Discharge: Fair Plan - Discharge Summary New Discharge Prescriptions: Discontinued amLODIPine [Norvasc] 10 mg PO HS Enalapril [Vasotec] 20 mg PO DAILY No Action Haloperidol [Haldol] 5 mg PO DAILY Benztropine Mesylate 0.5 mg PO TID QUEtiapine FUMARATE [SEROquel] 300 mg PO HS Furosemide [Lasix] 20 mg PO DAILY Amantadine HCl [Amantadine] 100 mg PO DAILY Discharge Medication List Benztropine Mesylate 0.5 mg PO TID 06/14/18 [History] Haloperidol [Haldol] 5 mg PO DAILY 06/14/18 [History] Amantadine HCl [Amantadine] 100 mg PO DAILY 07/28/18 [History] Furosemide [Lasix] 20 mg PO DAILY 07/28/18 [History] QUEtiapine FUMARATE [SEROquel] 300 mg PO HS 07/28/18 [History] Follow up Appointment(s)/Referral(s): Adi Gill MD [Primary Care Provider] - 1-2 days Activity/Diet/Wound Care/Special Instructions: Yesenia
[2018-08-01 13:27] VITALS: PULSE 94; RESP 18; TEMP 97.7
[2018-08-01 13:28] VITALS: BP 118/60
[2018-08-01 14:59] VITALS: BMI 21.3
[2018-08-01] MEDS ORDERED: amLODIPine 2.5 MG TAB PO SCH (21:00)
== END 2018-08-01 15:21 | DRG 557 ==
LOC: EC 18:56 → 3SCARD 20:58
PROVIDERS: ADMIT Internal Medicine; ATTEND Internal Medicine
DX: M62.82 Rhabdomyolysis (principal); N17.0 Acute kidney failure with tubular necrosis; N39.0 Urinary tract infection, site not specified; R64 Cachexia; E86.0 Dehydration; F31.9 Bipolar disorder, unspecified; F41.9 Anxiety disorder, unspecified; I87.8 Other specified disorders of veins; R29.6 Repeated falls; R73.9 Hyperglycemia, unspecified; G24.01 Drug induced subacute dyskinesia; K21.9 Gastro-esophageal reflux disease without esophagitis; I48.91 Unspecified atrial fibrillation; I12.9 Hypertensive chronic kidney disease with stage 1 through stage 4 chronic kidney disease, or unspecified chronic kidney disease; F20.9 Schizophrenia, unspecified; N18.3 Chronic kidney disease, stage 3 (moderate); D64.9 Anemia, unspecified; E55.9 Vitamin D deficiency, unspecified; G31.9 Degenerative disease of nervous system, unspecified; G56.32 Lesion of radial nerve, left upper limb; K56.41 Fecal impaction; M46.97 Unspecified inflammatory spondylopathy, lumbosacral region; S00.81XA Abrasion of other part of head, initial encounter; M47.817 Spondylosis without myelopathy or radiculopathy, lumbosacral region; T50.2X5A Adverse effect of carbonic-anhydrase inhibitors, benzothiadiazides and other diuretics, initial encounter; S31.119A Laceration without foreign body of abdominal wall, unspecified quadrant without penetration into peritoneal cavity, initial encounter; I95.9 Hypotension, unspecified; T43.505A Adverse effect of unspecified antipsychotics and neuroleptics, initial encounter; W19.XXXA Unspecified fall, initial encounter; Z79.899 Other long term (current) drug therapy; Z83.3 Family history of diabetes mellitus; Z82.3 Family history of stroke
CPT/HCPCS: 36415; 70450; 71260; 72110; 72125; 74177; 80048; 80053; 81001; 82140; 82306; 82550; 82553; 83540; 83550; 83735; 84484; 84550; 85025; 85027; 85610; 85730; 87040; 87086; 90715; 93005; 96361; 96374; 99285

== ENCOUNTER 2018-09-02 16:15 | Inpatient (IN) | payer MEDICARE, BC ==
[2018-09-02] MEDS ORDERED: SODIUM CHLORIDE 0.9% 1,000 ML IV STA ×3 (16:25→18:14)
--- NOTE | 2018-09-02 16:30 | ED ---
Weakness HPI - General Stated complaint: Weakness Time Seen by Provider: 09/02/18 16:22 Source: RN notes reviewed, old records reviewed - History of Present Illness Complaint: generalized weakness - Related Data Home Medications Medication Instructions Recorded Confirmed Benztropine Mesylate 0.5 mg PO TID 06/14/18 09/02/18 Haloperidol [Haldol] 5 mg PO DAILY 06/14/18 09/02/18 Amantadine HCl [Amantadine] 100 mg PO BID 07/28/18 09/02/18 QUEtiapine FUMARATE [SEROquel] 300 mg PO HS 07/28/18 09/02/18 Cholecalciferol [Vitamin D3 (25 1,000 unit PO DAILY 09/02/18 09/02/18 Mcg = 1000 Iu)] Ferrous Sulfate [Feosol] 325 mg PO DAILY 09/02/18 09/02/18 Pantoprazole [Protonix] 40 mg PO DAILY 09/02/18 09/02/18 Allergies Allergy/AdvReac Type Severity Reaction Status Date / Time No Known Allergies Allergy Verified 09/02/18 16:22 Review of Systems ROS Statement: Those systems with pertinent positive or pertinent negative responses have been documented in the HPI. ROS Other: All systems not noted in ROS Statement are negative. Past Medical History Past Medical History: Hypertension History of Any Multi-Drug Resistant Organisms: None Reported Past Surgical History: No Surgical Hx Reported Smoking Status: Never smoker - Past Family History Father Family Medical History: CVA/TIA, Diabetes Mellitus General Exam General appearance: alert, in no apparent distress Head exam: Present: atraumatic, normocephalic, normal inspection Eye exam: Present: normal appearance, PERRL, EOMI. Absent: scleral icterus, conjunctival injection, periorbital swelling ENT exam: Present: normal exam, mucous membranes moist Neck exam: Present: normal inspection. Absent: tenderness, meningismus, lymphadenopathy Respiratory exam: Present: normal lung sounds bilaterally. Absent: respiratory distress, wheezes, rales, rhonchi, stridor Cardiovascular Exam: Present: regular rate, normal rhythm, normal heart sounds. Absent: systolic murmur, diastolic murmur, rubs, gallop, clicks GI/Abdominal exam: Present: soft, normal bowel sounds. Absent: distended, tenderness, guarding, rebound, rigid Extremities exam: Present: normal inspection, full ROM, normal capillary refill. Absent: tenderness, pedal edema, joint swelling, calf tenderness Back exam: Present: normal inspection Neurological exam: Present: alert, oriented X3, CN II-XII intact Psychiatric exam: Present: normal affect, normal mood Skin exam: Present: warm, dry, intact, normal color. Absent: rash Course Vital Signs 09/02/18 16:28 Temperature 99.2 F Pulse Rate 88 Respiratory 17 Rate Blood Pressure 176/99 O2 Sat by Pulse 96 Oximetry EKG Findings - EKG Comments: EKG Findings:: EKG shows sinus tachycardia rate of 104, CT 156, QRS 92, QTc 502 Medical Decision Making - Lab Data Result diagrams: 09/02/18 17:11 Lab Results 09/02/18 09/02/18 09/02/18 Range/Units 17:11 17:11 17:11 Sodium 142 (137-145) mmol/L Potassium 3.7 (3.5-5.1) mmol/L Chloride 107 (98-107) mmol/L Carbon Dioxide 27 (22-30) mmol/L Anion Gap 8 mmol/L BUN 23 H (7-17) mg/dL Creatinine 0.93 (0.52-1.04) mg/dL Est GFR (CKD-EPI)AfAm 71 (>60 ml/min/1.73 sqM) Est GFR (CKD-EPI)NonAf 62 (>60 ml/min/1.73 sqM) Glucose 114 H (74-99) mg/dL Plasma Lactic Acid Freddy 1.0 (0.7-2.0) mmol/L Calcium 9.4 (8.4-10.2) mg/dL Phosphorus 3.5 (2.5-4.5) mg/dL Magnesium 1.9 (1.6-2.3) mg/dL Total Bilirubin 0.8 (0.2-1.3) mg/dL AST 69 H (14-36) U/L ALT 29 (9-52) U/L Alkaline Phosphatase 78 (38-126) U/L Creatine Kinase 2049 H* (30-135) U/L Troponin I 0.034 (0.000-0.034) ng/mL Total Protein 6.9 (6.3-8.2) g/dL Albumin 4.1 (3.5-5.0) g/dL Urine Color Urine Appearance (Clear) Urine pH (5.0-8.0) Ur Specific [place] (1.001-1.035) Urine Protein (Negative) Urine Glucose (UA) (Negative) Urine Ketones (Negative) Urine Blood (Negative) Urine Nitrite (Negative) Urine Bilirubin (Negative) Urine Urobilinogen (<2.0) mg/dL Ur Leukocyte Esterase (Negative) Urine RBC (0-5) /hpf Urine WBC (0-5) /hpf Urine WBC Clumps (None) /hpf Ur Squamous Epith Cells (0-4) /hpf Amorphous Sediment (None) /hpf Urine Mucus (None) /hpf 09/02/18 Range/Units 17:30 Sodium (137-145) mmol/L Potassium (3.5-5.1) mmol/L Chloride (98-107) mmol/L Carbon Dioxide (22-30) mmol/L Anion Gap mmol/L BUN (7-17) mg/dL Creatinine (0.52-1.04) mg/dL Est GFR (CKD-EPI)AfAm (>60 ml/min/1.73 sqM) Est GFR (CKD-EPI)NonAf (>60 ml/min/1.73 sqM) Glucose (74-99) mg/dL Plasma Lactic Acid Freddy (0.7-2.0) mmol/L Calcium (8.4-10.2) mg/dL Phosphorus (2.5-4.5) mg/dL Magnesium (1.6-2.3) mg/dL Total Bilirubin (0.2-1.3) mg/dL AST (14-36) U/L ALT (9-52) U/L Alkaline Phosphatase (38-126) U/L Creatine Kinase (30-135) U/L Troponin I (0.000-0.034) ng/mL Total Protein (6.3-8.2) g/dL Albumin (3.5-5.0) g/dL Urine Color Yellow Urine Appearance Cloudy H (Clear) Urine pH 5.5 (5.0-8.0) Ur Specific [place] 1.025 (1.001-1.035) Urine Protein 1+ H (Negative) Urine Glucose (UA) Negative (Negative) Urine Ketones 1+ H (Negative) Urine Blood Trace H (Negative) Urine Nitrite Negative (Negative) Urine Bilirubin Negative (Negative) Urine Urobilinogen <2.0 (<2.0) mg/dL Ur Leukocyte Esterase Large H (Negative) Urine RBC 5 (0-5) /hpf Urine WBC 139 H (0-5) /hpf Urine WBC Clumps Few H (None) /hpf Ur Squamous Epith Cells 1 (0-4) /hpf Amorphous Sediment Rare H (None) /hpf Urine Mucus Rare H (None) /hpf Disposition Clinical Impression: UTI (urinary tract infection), Weakness, Dehydration, Rhabdomyolysis Disposition: ADMITTED IP TO THIS HOSP Condition: Fair Is patient prescribed a controlled substance at d/c from ED?: No Referrals: Adi Gill MD [Primary Care Provider] - 1-2 days
[2018-09-02 17:39] LABS: Albumin 4.1 g/dL (3.5-5.0); Calcium 9.4 mg/dL (8.4-10.2); Magnesium 1.9 mg/dL (1.6-2.3); Phosphorus 3.5 mg/dL (2.5-4.5); Potassium 3.7 mmol/L (3.5-5.1); Total Bilirubin 0.8 mg/dL (0.2-1.3); Total Protein 6.9 g/dL (6.3-8.2)
[2018-09-02 17:44] LABS: Amorphous Sediment,Urine Rare /hpf; Appearance,Urine Cloudy (Clear); Bilirubin,Urine Negative (Negative); Blood,Urine Trace (Negative); Color,Urine Yellow; Glucose,Urine (UA) Negative (Negative); Ketones,Urine 1+ (Negative); Leukocyte Esterase,Urine Large (Negative); Mucus,Urine Rare /hpf; Nitrite,Urine Negative (Negative); PH, Urine 5.5 (5.0-8.0); Protein,Urine 1+ (Negative); RBC,Urine 5 /hpf (0-5); Specific Gravity,Urine 1.025 (1.001-1.035); Squamous Epithelial Cell,Urine 1 /hpf (0-4); Urobilinogen,Urine <2.0 mg/dL (<2.0); WBC,Urine 139 /hpf (0-5)
[2018-09-02] MEDS ORDERED: SODIUM CHLORIDE 0.9% 500 ML 500 ML IV STA (18:14)
[2018-09-02 18:45] LABS: Basophils % (A) 0 %; Eosinophils # (A) 0.1 k/uL (0-0.7); Eosinophils % (A) 2 %; Lymphocytes # (A) 0.9 k/uL (1.0-4.8); Lymphocytes % (A) 19 %; MCH 30.9 pg (25.0-35.0); MCHC 32.5 g/dL (31.0-37.0); MCV 95.1 fL (80.0-100.0); Mean Platelet Volume 9.1; Monocytes # (A) 0.4 k/uL (0-1.0); Monocytes % (A) 8 %; Neutrophils # (A) 3.1 k/uL (1.3-7.7); Neutrophils % (A) 68 %; RBC 2.01 m/uL (3.80-5.40); RDW 12.9 % (11.5-15.5); WBC 4.6 k/uL (3.8-10.6)
[2018-09-02 18:49] LABS: HCT 19.1 % (34.0-46.0); HGB 6.2 gm/dL (11.4-16.0); Platelet Count 102 k/uL (150-450)
--- NOTE | 2018-09-02 18:52 | XR ---
EXAMINATION: XR chest 2V DATE AND TIME: 09/02/2018 6:09 PM CLINICAL INDICATION: PHH; Weakness TECHNIQUE: Departmental protocol COMPARISON: 06/14/2018 FINDINGS: The lungs are clear. The pleural spaces are negative. The cardiac silhouette is not enlarged. Aortic tortuosity is redemonstrated. The skeletal structures and soft tissues are negative for acute findings. IMPRESSION: Similar findings.
[2018-09-02] MEDS ORDERED: LABETALOL SYRINGE 5 MG/ML IVP STA (19:40)
[2018-09-02] MEDS ORDERED: DEXTROSE 5%-LACTATED RINGERS 1,000 ML IV SCH (21:15)
--- NOTE | 2018-09-02 21:34 | XR ---
PROCEDURE: XR hand complete LT - 3V DATE AND TIME: 09/02/2018 8:52 PM CLINICAL INDICATION: PHH; pain TECHNIQUE: Department protocol COMPARISON: 07/30/2018 FINDINGS: There is no fracture or malalignment. There is evidence of soft tissue swelling at the wrist, volar > dorsal. Scattered osteoarthritis changes are noted, with generalized osteopenia. If clinically necessary, MRI can yield greater sensitivity. IMPRESSION: No definite acute/subacute radiographic process.
[2018-09-02] MEDS ORDERED: FUROSEMIDE 10 MG/ML 2 ML VIAL IV PRN (22:01)
--- NOTE | 2018-09-02 22:42 | P.HPIM ---
History of Present Illness H&P Date: 09/02/18 (Hemoglobin 6.2) Chief Complaint: Fell down from the wheelchair known today. This is a history and physical dictation by Curt Xiong. [facility] Patient brought by ambulance to the emergency room after her caregiver checked on her and found hair on the floor beside the wheelchair and couldn't get up. Pro-to the emergency room and found that she had hemoglobin 6.2 with the unknown etiology of blood loss from bilateral or from the stomach. And patient has underlying tardive dyskinesia with the extrapyramidal symptoms due to medication the house until which was necessary to be used for her underlying psychiatric disorder and schizophrenia. In the emergency room she had x-ray of the left hand which was negative for fracture and she had a splint with the underlying history of radial pulse 3 from her previous fall and at that time she was admitted to the hospital with the previous presence of the previous admission of rhabdo myolysis as well. In the ER as well they found her chest x-ray done and was negative as well and her EKG indicated sinus tachycardia with the left atrial enlargement and questionable of septal infarct and it in mind age. However no acute abnor malities In the emergency room also did a CBC and chemistry: And they found that she had rhabdomyolysis with CPK creatinine kinase more than 2000. They found also hemoglobin 6.2 with a significant drop over hemoglobin with the history very poor, and she denied any vomiting blood or blood in the stools or black stools. They called and they are her brother who is a caregiver and he agreed with blood transfusion. As well as I did speak to her and indicating that her illness and disease need the blood transfusion and the she has no islam again is to blood transfusion. And she will be transfused 2 units of packed RBCs after we obtain the blood cultures, patient has significant urinary tract infection and despite that her white count is normal. On the floor I did examine the patient found that she had distended bladder and we did a bladder scan more than 900 mL with the urine retention as well as a urine analysis in the ER indicating urinary tract infection they gave her Rocephin and we increase the Rocephin to every 12 hour 1 g with the consideration of possibility of sepsis as patient gets shaky while we while I was examining her. I did resume her medication. Past medical history: She was recently admitted to the hospital and at that time have similar situation of fall and we did consult at that time the orthopedic for her left hand and stated that radial pulse he from the fall and the potential her on left hand splint. Also she had rhabdomyolysis secondary to the fall and patient was hydrated and recovered. In the lost admission patient seen by psychiatrist DR. olivera who discussed that with Dr. Pan her outpatient psychiatrist and both decided that patient need to be under observation constantly, suspect subsequently patient discharged to [facility] with the interested to stay there subsequently after the rehabilitation, unfortunately I did ask the patient and she stated that she was like to stay however her brother took her back to her assisted living and she is not ambulatory at this time and using wheelchair and could not serve herself and on this admission she fell down again, we will be requesting the social services technician for the future planning for prison as well as constant supervision in the prison. Hopefully her brother agreed with that who is a caregiver and he is a power of consumer attorney. ALLERGY unknown Social history she is single never . Other medical problem: Hypertension. Psychiatric disorder with underlying adverse effect of heartburn however she needed to continue with this medication per the psychiatrist with the associated extrapyramidal signs as tardive dyskinesia with lip masking and stuttering of speech make it's difficult to understand and communicate as well. In her last visit to the hospital psychiatrist did not change her medication and the recommended to continue the same. Never 0 para 0. Habits no smoking and no drinking. Family history: She has one brother who is the POA. Her mother who was taking care of her diet. Review of system: Psychiatry: Psychiatric disorder with the underlying schizophrenia. Neurology: Left hand radial palsy with inability to move her fingers and the rest could not help her right hand. No history of stroke and no evidence of stroke. Cardiovascular: No history of previous [place], history of hypertension with hypertensive heart disease. Pulmonary: No cough or expectoration no shortness of breath. GI: With a hemoglobin drop to 6.2 on this admission patient is on how where of any vomiting blood or blood with the bowel movement black or red and she has history of incontinent and she doesn't look to the stools. Chest x-ray was negative Genitourinary: Incontinent. With that consideration of the urine only however we are not sure so far. Musculoskeletal: Left hand radial pulse he with the history of fall without fracture of the bone. Endocrinology: No diabetes and no thyroid disease. The rest of the review of system polit non-contributory and no history of seizure disorder. Physical exam: Patient was conscious alert she has difficulty of expressed the story of her fall as she has been not supervised. The head was normocephalic and atraumatic, pupil was equal reactive, conjunctiva was pale and sclera nonicteric. Oropharynx natural teeth able to swallow with no choking. Nose no bleeding or discharge. Ears some wax but is able to hear. Neck supple no JVD no thyromegaly no lymphadenopathy trachea midline. Chest is clear to auscultation and percussion no wheezes no rhonchi's. Heart regular sinus rhythm with EKG indicating tachycardia no previous history of [place] no history of angina. Abdomen soft positive bowel sound and distention of the bladder with discomfort on palpation, bladder scan indicating 900 mL after placement of the Gamble catheter as well with the presence of urine retention, UTI with cystitis is considered and sepsis Association considered and blood culture was obtained on the floor and despite that her white count is normal. As patient was having shaky and I thought that could be underlying sepsis. Extremities: She had a right lower leg history of venous ulcers has been treated by didn't the vascular surgeon in the past currently healed. The right leg mild edema of the ankle and the shaft, the left lower extremities she has 2+ pitting edema the etiology is unknown however she had the rhabdo and she had previous ultrasound on the previous admission which was essentially negative however probably we will wait until the blood culture and we will obtain ultrasound of the left lower extremities on the exam there is no tenderness on the course of the superficial femoral veins with the blood perfusion is normal with pulses is intact on the left lower extremities. Neurological exam: No evidence of cranial nerve deficit, she had left hand palsy with the splint. She had some psychiatric disorder however she currently on her medication that has been before prescribed by Dr. Pan psychiatrist. Assessment and plan #1 hemoglobin 6.20 with significant drop associated with anemia unknown et iology, could be secondary to blood loss, we'll consult gastroenterology for evaluation and possible upper and lower endoscopy to clarify the blood loss. #2 rhabdo myolysis anticoagulant secondary to the fall, we will hydrate and monitor the renal function. #3 urinary tract infection, urinary retention was more than 900 mL with the placement of the Gamble catheter, cystitis with discomfort on exam and possible sepsis Association, blood culture was obtained. #4 history of hypertension currently stable. #5 underlying psychiatric disorder with tardive dyskinesia secondary to the Haldol which we could not change it better the psychiatrist. #6 continue hydration, 2 units of blood packed RBCs transfusion tonight, hopefully the gastroenterology scope her tomorrow, patient on clear liquid diet. #7 patient was started on Protonix IV 40 mg twice a day tell seen by gastroenterology. Past Medical History Past Medical History: Hypertension History of Any Multi-Drug Resistant Organisms: None Reported Past Surgical History: No Surgical Hx Reported Smoking Status: Never smoker - Past Family History Father Family Medical History: CVA/TIA, Diabetes Mellitus Medications and Allergies Home Medications Medication Instructions Recorded Confirmed Type Benztropine Mesylate 0.5 mg PO TID 06/14/18 09/02/18 History Haloperidol [Haldol] 5 mg PO DAILY 06/14/18 09/02/18 History Amantadine HCl [Amantadine] 100 mg PO BID 07/28/18 09/02/18 History QUEtiapine FUMARATE [SEROquel] 300 mg PO HS 07/28/18 09/02/18 History Cholecalciferol [Vitamin D3 (25 1,000 unit PO DAILY 09/02/18 09/02/18 History Mcg = 1000 Iu)] Ferrous Sulfate [Feosol] 325 mg PO DAILY 09/02/18 09/02/18 History Pantoprazole [Protonix] 40 mg PO DAILY 09/02/18 09/02/18 History Allergies Allergy/AdvReac Type Severity Reaction Status Date / Time No Known Allergies Allergy Verified 09/02/18 16:22 Physical Exam Vitals: Vital Signs Temp Pulse Resp BP Pulse Ox 09/02/18 20:58 93 18 168/92 95 09/02/18 20:34 98 18 161/103 09/02/18 20:09 98.6 F 100 18 177/98 99 09/02/18 19:10 98.4 F 94 18 178/101 96 09/02/18 16:28 99.2 F 88 17 176/99 96 Intake and Output 09/02/18 09/02/18 09/02/18 06:59 14:59 22:59 Other: Weight 54.431 kg Results CBC & Chem 7: 09/02/18 18:27 09/02/18 17:11 Labs: Abnormal Lab Results - Last 24 Hours (Table) 09/02/18 09/02/18 09/02/18 Range/Units 17:11 17:30 18:27 RBC 2.01 L (3.80-5.40) m/uL Hgb 6.2 L* D (11.4-16.0) gm/dL Hct 19.1 L* (34.0-46.0) % Plt Count 102 L D (150-450) k/uL Lymphocytes # 0.9 L (1.0-4.8) k/uL BUN 23 H (7-17) mg/dL Glucose 114 H (74-99) mg/dL AST 69 H (14-36) U/L Creatine Kinase 2049 H* (30-135) U/L Urine Appearance Cloudy H (Clear) Urine Protein 1+ H (Negative) Urine Ketones 1+ H (Negative) Urine Blood Trace H (Negative) Ur Leukocyte Esterase Large H (Negative) Urine WBC 139 H (0-5) /hpf Urine WBC Clumps Few H (None) /hpf Amorphous Sediment Rare H (None) /hpf Urine Mucus Rare H (None) /hpf
[2018-09-02] MEDS: PANTOPRAZOLE 40 MG/10 ML VIAL IVP SCH (23:13)
[2018-09-02] MEDS: BENZTROPINE MESYLATE 0.5 MG TAB PO SCH (23:14)
[2018-09-02] MEDS: QUEtiapine 100 MG TAB PO SCH (23:14)
[2018-09-03] MEDS: D5-0.9% NACL WITH KCL 20 MEQ/L 1,000 ML IV SCH ×3 (01:59→20:38)
[2018-09-03 06:42] LABS: HCT 30.9 % (34.0-46.0); MCH 31.7 pg (25.0-35.0); MCHC 32.8 g/dL (31.0-37.0); MCV 96.7 fL (80.0-100.0); Mean Platelet Volume 7.1; RBC 3.19 m/uL (3.80-5.40); RDW 12.9 % (11.5-15.5); WBC 7.5 k/uL (3.8-10.6)
[2018-09-03 07:01] LABS: African American GFR (CKD) >90 (>60 ml/min/1.73 sqM); Anion Gap 7 mmol/L; Blood Urea Nitrogen 16 mg/dL (7-17); Calcium 8.3 mg/dL (8.4-10.2); Carbon Dioxide 23 mmol/L (22-30); Chloride 111 mmol/L (98-107); Glucose 131 mg/dL (74-99); Potassium 3.2 mmol/L (3.5-5.1); Sodium 141 mmol/L (137-145)
[2018-09-03 07:03] LABS: HGB 10.1 gm/dL (11.4-16.0); Platelet Count 165 k/uL (150-450)
[2018-09-03 07:22] LABS: Creatine Kinase 1131 U/L (30-135)
[2018-09-03] MEDS: BENZTROPINE MESYLATE 0.5 MG TAB PO SCH ×3 (08:56→20:38)
[2018-09-03] MEDS: HALOPERIDOL 5 MG TAB PO SCH (08:56)
[2018-09-03] MEDS: PANTOPRAZOLE 40 MG/10 ML VIAL IVP SCH (08:57)
[2018-09-03] MEDS: CHOLECALCIFEROL 1,000 UNIT TAB PO SCH (08:57)
[2018-09-03] MEDS: AMANTADINE HCL 100 MG CAP PO SCH ×2 (08:57→20:38)
--- NOTE | 2018-09-03 12:38 | P.CONS ---
History of Present Illness - Reason for Consult Consult date: 09/03/18 Anemia possible GI bleed Requesting physician: Adi Gill - Chief Complaint Weakness - History of Present Illness 70-year-old past medical history chronic normocytic anemia, tardive dyskinesia schizophrenic Public guardian with a history of rhabdomyolysis brought to hosp [facility] regarding general weakness status post fall from the [facility] with evidence of rhabdomyolysis. Consult requested for anemia possible GI bleed. Patient's average hemoglobin tends to be in the 10 range. Admission he will 6.2 without blood transfusion repeat hemoglobin 10.1. Platelet 165. MCV 96. No evidence of hypochromia. White count 7.5. BUN 16. Creatinine 0.6. CK 2049. Hand x- ray no fracture. History pain from nursing staff medical records as patient is not able to provide a detailed medical history. According to the nursing staff no episodes of hematemesis hematochezia or melena. She is tolerating a diet. She appears not to be in pain. No emesis. Is unclear whether or not patient has had an EGD colonoscopy in the past. Review of Systems Unable to obtain medical records reviewed Constitutional: Denies fever, chills, sweats, weight gain, or loss. HEENT: Negative for migraines, blurred vision or loss, earaches, drainage, tinnitus, oral mucosal lesions, dysphagia, or odynophagia. CARDIAC: Negative for chest pain, arrhythmias, or palpitation. RESPIRATORY: Negative for shortness of breath, hemoptysis, cough, or sputum p roduction. GI: See HPI for pertinent findings. : Negative for hematuria, urgency, frequency, polyuria, or dysuria. GYNc: Negative vaginal discharge. MUSCULOSKELETAL: Negative for muscle aches, swelling, arthritis, and arthralgias. NEUROLOGIC: Tardive dyskinesia. Negative for stroke or TIA. ENDOCRINE: Negative for thyroid problems. SKIN: Negative for rash or itching. PSYCHIATRIC: Schizophrenia Past Medical History Past Medical History: Hypertension History of Any Multi-Drug Resistant Organisms: None Reported Past Surgical History: No Surgical Hx Reported Smoking Status: Never smoker - Past Family History Father Family Medical History: CVA/TIA, Diabetes Mellitus Medications and Allergies Home Medications Medication Instructions Recorded Confirmed Type Benztropine Mesylate 0.5 mg PO TID 06/14/18 09/02/18 History Haloperidol [Haldol] 5 mg PO DAILY 06/14/18 09/02/18 History Amantadine HCl [Amantadine] 100 mg PO BID 07/28/18 09/02/18 History QUEtiapine FUMARATE [SEROquel] 300 mg PO HS 07/28/18 09/02/18 History Cholecalciferol [Vitamin D3 (25 1,000 unit PO DAILY 09/02/18 09/02/18 History Mcg = 1000 Iu)] Ferrous Sulfate [Feosol] 325 mg PO DAILY 09/02/18 09/02/18 History Pantoprazole [Protonix] 40 mg PO DAILY 09/02/18 09/02/18 History Allergies Allergy/AdvReac Type Severity Reaction Status Date / Time No Known Allergies Allergy Verified 09/02/18 16:22 Physical Exam Vitals: Vital Signs Temp Pulse Pulse Resp BP BP Pulse Ox 09/03/18 08:00 97.8 F 74 18 135/63 100 09/03/18 04:30 97.8 F 81 16 141/72 99 09/03/18 00:30 97.7 F 74 16 146/66 100 09/02/18 21:35 100 17 09/02/18 21:09 97.9 F 100 17 174/84 98 09/02/18 20:58 93 18 168/92 95 09/02/18 20:34 98 18 161/103 09/02/18 20:09 98.6 F 100 18 177/98 99 09/02/18 19:10 98.4 F 94 18 178/101 96 09/02/18 16:28 99.2 F 88 17 176/99 96 Intake and Output 09/02/18 09/03/18 09/03/18 22:59 06:59 14:59 Intake Total 120 1100 240 Output Total 1200 Balance 120 -100 240 Intake: Intake, IV Titration 1100 Amount Sodium Chloride 0.9% 1, 1100 000 ml @ 100 mls/hr IV . Q10H STA Rx#:[id number] Oral 120 240 Output: Urine 1200 Other: Voiding Method Indwelling Catheter Indwelling Catheter Weight 54.431 kg 54.5 kg 54.5 kg General appearance: The patient is alert, in no acute distress. HET: Head is normocephalic and atraumatic. Pupils are equal and reactive. Oropharynx is clear without lesions. Neck: Supple without lymphadenopathy. Trachea midline. Heart: S1 S2. Regular rate and rhythm. Lungs: No crackles or wheezes are heard. Abdomen: Soft, nontender, nondistended with bowel sounds. No peritoneal signs. No palpable organomegaly or masses. Extremities: Normal skin color and turgor. No cyanosis, rash, ulceration, clubbing, or edema. Radial and pedal pulses are 2/4 bilaterally. Neurological: Tardive dyskinesia. Strength and sensation are grossly intact. Results CBC & Chem 7: 09/03/18 06:08 09/03/18 06:08 Labs: Abnormal Lab Results - Last 24 Hours (Table) 09/02/18 09/02/18 09/02/18 Range/Units 17:11 17:30 18:27 RBC 2.01 L (3.80-5.40) m/uL Hgb 6.2 L* D (11.4-16.0) gm/dL Hct 19.1 L* (34.0-46.0) % Plt Count 102 L D (150-450) k/uL Lymphocytes # 0.9 L (1.0-4.8) k/uL Potassium (3.5-5.1) mmol/L Chloride (98-107) mmol/L BUN 23 H (7-17) mg/dL Glucose 114 H (74-99) mg/dL Calcium (8.4-10.2) mg/dL AST 69 H (14-36) U/L Creatine Kinase 2049 H* (30-135) U/L Urine Appearance Cloudy H (Clear) Urine Protein 1+ H (Negative) Urine Ketones 1+ H (Negative) Urine Blood Trace H (Negative) Ur Leukocyte Esterase Large H (Negative) Urine WBC 139 H (0-5) /hpf Urine WBC Clumps Few H (None) /hpf Amorphous Sediment Rare H (None) /hpf Urine Mucus Rare H (None) /hpf 09/03/18 09/03/18 Range/Units 06:08 06:08 RBC 3.19 L (3.80-5.40) m/uL Hgb 10.1 L D (11.4-16.0) gm/dL Hct 30.9 L (34.0-46.0) % Plt Count (150-450) k/uL Lymphocytes # (1.0-4.8) k/uL Potassium 3.2 L (3.5-5.1) mmol/L Chloride 111 H (98-107) mmol/L BUN (7-17) mg/dL Glucose 131 H (74-99) mg/dL Calcium 8.3 L (8.4-10.2) mg/dL AST (14-36) U/L Creatine Kinase 1131 H* (30-135) U/L Urine Appearance (Clear) Urine Protein (Negative) Urine Ketones (Negative) Urine Blood (Negative) Ur Leukocyte Esterase (Negative) Urine WBC (0-5) /hpf Urine WBC Clumps (None) /hpf Amorphous Sediment (None) /hpf Urine Mucus (None) /hpf Microbiology - Last 24 Hours (Table) 09/02/18 17:30 Urine Culture - Preliminary Urine,Voided Assessment and Plan (1) Rhabdomyolysis Narrative/Plan: 72-year-old female history schizophrenia admitted from [facility] with weakness status post fall rhabdomyolysis with a baseline history of normocytic normochromic anemia without clinical evidence to suggest an acute GI bleed at this time. Patient had admission hemoglobin 6.2 repeat hemoglobin 10.1 without transfusion. Admission CBC most likely false result. Current Visit: Yes Status: Acute Code(s): M62.82 - RHABDOMYOLYSIS SNOMED Code(s): 416204927 (2) Weakness Current Visit: Yes Status: Acute Code(s): R53.1 - WEAKNESS SNOMED Code(s): 18976698 (3) Fall Current Visit: No Status: Acute Code(s): W19.XXXA - UNSPECIFIED FALL, INITIAL ENCOUNTER SNOMED Code(s): 6886115 (4) Schizophrenia Current Visit: No Status: Acute Priority: High Code(s): F20.9 - SCHIZOPHRENIA, UNSPECIFIED SNOMED Code(s): 28739544 Plan: 1. From a GI standpoint inpatient endoscopic exams are not recommended at this time. Clinically she is not showing signs of an active GI bleed. Her admission CBC most likely false secondary to repeat CBC returning and 10.1 without trans fusion which is close to her baseline. If patient develops clinical symptoms of acute GI bleed we'll proceed with endoscopic exams accordingly. Continue with supportive measures. Diet as tolerated. CBC monitoring. Thank you for this kind referral and the opportunity to participate in the care of your patient. This consultation was discussed with Dr. Braun. The impressio n and plan of care have been directed as dictated.
--- NOTE | 2018-09-03 15:32 | P.PN ---
Subjective Progress Note Date: 09/03/18 Progress note date of service 09/03/2018. Patient seen today evaluated [id number] Laboratory has been reviewed and found that his white count 7.5 and the hemoglobin 10.1 with the yesterday hemoglobin 6.2 was critical at that time however patient did not have blood transfusion and today her hemoglobin is 10.1 probably due to falls result from the lab however patient still anemic and call and pale and GI consultation was reviewed and the indicating there is no obvious point of GI bleeding. Patient however is anemic and her platelet count also improved to 165 from 102. And we will be starting her on subcu Lovenox daily for DVT prophylaxis. Her sodium is 141 potassium 3.2 with the underlying hypokalemia and covered with protocol as well as IV has potassium and will lab tomorrow as well and her ca lcium is 8.3 today her renal function is stable with the non- glomerular filtration rate 89 and the serum creatinine 0.63 and the BUN is 16. Urinary tract infection has been treated with soft Rocephin and we planning to wait for the culture as well with the recurrent urinary tract infection and retention of the urine indicating possibility of consideration of cystitis as well and antibiotic was adjusted with the Rocephin 1 g every 12 hours until the culture is available. No evidence of blood from any orifices as her from oral or from the bowel movement however patient did not have yet a stool for Hemoccult done. Her temperature 98.8 and pulse 72 respiratory rate 18 and blood pressure 163/88 and her her pulse ox 99. On the exam Her HEENT was negative and she had difficulty of expressing herself and we consulted the neurology to evaluate as well her ulnar pulsating versus radial pu lse rate associated with previous fall and when that that time admitted to the hospital there is no neurologist on-call, at this time we will be consulting neurologist to evaluate and give us clearance on which diagnosis is that and how can need for rehabilitation as well. I did discuss with the discharge planning and the nursing staff that the patient needs complete dependency on the detention as she could not really use her left hand and has difficulties of walking as well and the for the purposes we recommended the placement in the detention and as well as rehabilitation Josh On the examination patient is conscious she is alert but she has difficulty with speech with the tardive dyskinesia secondary to the hold all that was used for her schizophrenia and the psychiatry valuation consultant did not remove that medication because necessitated for her treatment Slominski Zofran anemia. Patient as well has been seen by the psychiatrist in the hospital and on last admission and at that time she also discuss it with Dr. Kim the psychiatrist of outpatient and they decided patient has to be independent "incomplete supervision and that they need for detention is mandated and to be in the detention which patient has been agreed 1 that as well and I did not see that her brother kept her there in the detention and the stating that the detention sending the patient out which is confused point from [facility]. On the examination the chest was clear and the heart was regular sinus rhythm and the abdomen was soft positive bowel sound extremities had edema of the left lower extremities has been resolved, and with no arrhythmias and the blood pressure is fairly well controlled and which is fluctuating but lost blood pressure was 135/63 with a mean 87. Patient may be transferred to a [facility] and there is no need for telemetry on this admission however the sr. merchandise planner will be working with the D[employer] her brother and to have permanent position placement in the detention as this admission has the same frequency of she was in the wheelchair and fell down and causing the rhabdomyolysis as well as well as her bruises in the left hand with the present and she could not move it and they did x-ray in the ER was negative. Assessment #1 is rhabdomyolysis secondary to frequent fall. #2 edema of the left lower extremities resolved #3 urinary tract infection, #4 urinary retention with discomfort on the bladder was palpation with cystitis rule out sepsis. #5 hypertension uncontrolled. With the underlying IV hydration for rhabdomyolysis. #6 inability to walk. Plan rehabilitation with the PT and OT. #2 treatment for the ransacked infection waiting for the culture and sensitivity. #3 the underlying anemia of unknown etiology with the sofar GI blood loss was not present and with the laboratory error on admission with the recovery of her hemoglobin to 10 with the probably underlying chronic anemia this considered. #4 we'll repeat laboratory tomorrow for CBC and BMP and the CK creatinine kinase And for further treatment with the neurology consultation for the ulnar palsy of the left hand versus other etiology and no fracture of the and for the rest of the left hand. And future plan for placement to the detention [facility] with the c onsideration of continuing rehabilitation. Patient is dependent and need placement to live in the detention. I did discuss it with the discharge nurse Objective - Vital Signs Vital signs: Vital Signs Temp 98.9 F 09/03/18 12:00 Pulse 72 09/03/18 12:00 Resp 18 09/03/18 12:00 BP 163/88 09/03/18 12:00 Pulse Ox 99 09/03/18 12:00 Intake & Output 09/02/18 09/03/18 09/03/18 18:59 06:59 18:59 Intake Total 1220 480 Output Total 1200 Balance 20 480 Weight 54.431 kg 54.5 kg 54.5 kg Intake: Intake, IV Titration 1100 Amount Sodium Chloride 0.9% 1, 1100 000 ml @ 100 mls/hr IV . Q10H STA Rx#:[id number] Oral 120 480 Output: Urine 1200 Other: Voiding Method Indwelling Catheter Indwelling Catheter - Labs CBC & Chem 7: 09/03/18 06:08 09/03/18 06:08 Labs: Abnormal Lab Results - Last 24 Hours (Table) 09/02/18 09/02/18 09/02/18 Range/Units 17:11 17:30 18:27 RBC 2.01 L (3.80-5.40) m/uL Hgb 6.2 L* D (11.4-16.0) gm/dL Hct 19.1 L* (34.0-46.0) % Plt Count 102 L D (150-450) k/uL Lymphocytes # 0.9 L (1.0-4.8) k/uL Potassium (3.5-5.1) mmol/L Chloride (98-107) mmol/L BUN 23 H (7-17) mg/dL Glucose 114 H (74-99) mg/dL Calcium (8.4-10.2) mg/dL AST 69 H (14-36) U/L Creatine Kinase 2049 H* (30-135) U/L Urine Appearance Cloudy H (Clear) Urine Protein 1+ H (Negative) Urine Ketones 1+ H (Negative) Urine Blood Trace H (Negative) Ur Leukocyte Esterase Large H (Negative) Urine WBC 139 H (0-5) /hpf Urine WBC Clumps Few H (None) /hpf Amorphous Sediment Rare H (None) /hpf Urine Mucus Rare H (None) /hpf 09/03/18 09/03/18 Range/Units 06:08 06:08 RBC 3.19 L (3.80-5.40) m/uL Hgb 10.1 L D (11.4-16.0) gm/dL Hct 30.9 L (34.0-46.0) % Plt Count (150-450) k/uL Lymphocytes # (1.0-4.8) k/uL Potassium 3.2 L (3.5-5.1) mmol/L Chloride 111 H (98-107) mmol/L BUN (7-17) mg/dL Glucose 131 H (74-99) mg/dL Calcium 8.3 L (8.4-10.2) mg/dL AST (14-36) U/L Creatine Kinase 1131 H* (30-135) U/L Urine Appearance (Clear) Urine Protein (Negative) Urine Ketones (Negative) Urine Blood (Negative) Ur Leukocyte Esterase (Negative) Urine WBC (0-5) /hpf Urine WBC Clumps (None) /hpf Amorphous Sediment (None) /hpf Urine Mucus (None) /hpf Microbiology - Last 24 Hours (Table) 09/02/18 17:30 Urine Culture - Preliminary Urine,Voided
[2018-09-03] MEDS ORDERED: Potassium Replacement Protocol 1 EACH MISC MISCELLANE PRN (15:41)
[2018-09-03] MEDS: POTASSIUM CHLORIDE ER 20 MEQ TAB.ER PO SCH (18:02)
[2018-09-03] MEDS: PANTOPRAZOLE 40 MG TABLET PO SCH (18:02)
[2018-09-03] MEDS: LISINOPRIL-HCTZ 10-12.5 MG 1 EACH TAB PO SCH (18:02)
[2018-09-03] MEDS: amLODIPine 5 MG TAB PO SCH (18:02)
[2018-09-03] MEDS: QUEtiapine 100 MG TAB PO SCH (20:38)
[2018-09-04] MEDS: D5-0.9% NACL WITH KCL 20 MEQ/L 1,000 ML IV SCH ×2 (05:40→09:50)
[2018-09-04] MEDS: PANTOPRAZOLE 40 MG TABLET PO SCH ×2 (06:39→17:07)
[2018-09-04 07:05] LABS: Basophils # (A) 0.1 k/uL (0-0.2); Basophils % (A) 1 %; Eosinophils # (A) 0.4 k/uL (0-0.7); Eosinophils % (A) 7 %; HCT 32.1 % (34.0-46.0); HGB 11.1 gm/dL (11.4-16.0); Lymphocytes # (A) 1.1 k/uL (1.0-4.8); Lymphocytes % (A) 18 %; MCH 32.2 pg (25.0-35.0); MCHC 34.6 g/dL (31.0-37.0); MCV 93.2 fL (80.0-100.0); Mean Platelet Volume 7.3; Monocytes # (A) 0.5 k/uL (0-1.0); Monocytes % (A) 8 %; Neutrophils # (A) 3.9 k/uL (1.3-7.7); Neutrophils % (A) 64 %; Platelet Count 167 k/uL (150-450); RBC 3.44 m/uL (3.80-5.40); RDW 13.6 % (11.5-15.5); WBC 6.1 k/uL (3.8-10.6)
--- NOTE | 2018-09-04 08:37 | P.PN ---
Subjective Progress Note Date: 09/04/18 Principal diagnosis: anemia possible GI bleed No active GI bleeding. Hemoglobin 11.1 up from 10.1 yesterday. Objective - Vital Signs Vital signs: Vital Signs Temp 98.6 F 09/03/18 20:00 Pulse 100 09/03/18 20:00 Resp 18 09/03/18 20:00 BP 179/81 09/03/18 20:00 Pulse Ox 98 09/03/18 20:00 Intake & Output 09/03/18 09/04/18 09/04/18 18:59 06:59 18:59 Intake Total 702 Output Total 500 900 Balance 202 -900 Weight 54.5 kg Intake: Oral 702 Output: Urine 500 900 Other: Voiding Method Indwelling Catheter Indwelling Catheter - Exam General appearance: The patient is alert, in no acute distress. Tardive dyskinesia. HET: Head is normocephalic and atraumatic. Pupils are equal and reactive. Oropharynx is clear without lesions. Neck: Supple without lymphadenopathy. Trachea midline. Heart: S1 S2. Regular rate and rhythm. Lungs: No crackles or wheezes are heard. Abdomen: Soft, nontender, nondistended with bowel sounds. No peritoneal signs. No palpable organomegaly or masses. Extremities: No edema. Neurological: Tardive dyskinesia. - Labs CBC & Chem 7: 09/04/18 06:43 09/03/18 06:08 Labs: Abnormal Lab Results - Last 24 Hours (Table) 09/04/18 09/04/18 Range/Units 06:43 06:43 RBC 3.44 L (3.80-5.40) m/uL Hgb 11.1 L (11.4-16.0) gm/dL Hct 32.1 L (34.0-46.0) % Creatine Kinase 411 H (30-135) U/L Microbiology - Last 24 Hours (Table) 09/02/18 23:05 Blood Culture - Preliminary Blood No Growth after 24 hours 09/02/18 22:14 Blood Culture - Preliminary Blood No Growth after 24 hours 09/02/18 17:30 Urine Culture - Preliminary Urine,Voided Gram Neg Bacilli Assessment and Plan (1) Rhabdomyolysis Narrative/Plan: 72-year-old female history schizophrenia admitted from [facility] with weakness status post fall rhabdomyolysis with a baseline history of normocytic normochromic anem ia without clinical evidence to suggest an acute GI bleed at this time. Patient had admission hemoglobin 6.2 repeat hemoglobin 10.1 and presently 11.1 without transfusion. Admission CBC most likely false result. Current Visit: Yes Status: Acute Code(s): M62.82 - RHABDOMYOLYSIS SNOMED Code(s): 837685601 (2) Weakness Current Visit: Yes Status: Acute Code(s): R53.1 - WEAKNESS SNOMED Code(s): 64145464 (3) Fall Current Visit: No Status: Acute Code(s): W19.XXXA - UNSPECIFIED FALL, INITIAL ENCOUNTER SNOMED Code(s): 1598342 (4) Schizophrenia Current Visit: No Status: Acute Priority: High Code(s): F20.9 - SCHIZOPHRENIA, UNSPECIFIED SNOMED Code(s): 07683561 Plan: 1. From a GI standpoint inpatient endoscopic exams are not recommended at this time. Clinically she is not showing signs of an active GI bleed. Her admission CBC most likely false secondary to repeat CBC returning and 10.1 now 11.1 without transfusion. We'll follow on an as-needed basis. Assessment and plan a care discussed with Dr. Braun
[2018-09-04] MEDS: CHOLECALCIFEROL 1,000 UNIT TAB PO SCH (09:47)
[2018-09-04] MEDS: amLODIPine 5 MG TAB PO SCH (09:47)
[2018-09-04] MEDS: BENZTROPINE MESYLATE 0.5 MG TAB PO SCH ×3 (09:47→21:17)
[2018-09-04] MEDS: LISINOPRIL-HCTZ 10-12.5 MG 1 EACH TAB PO SCH (09:47)
[2018-09-04] MEDS: AMANTADINE HCL 100 MG CAP PO SCH ×2 (09:47→21:18)
[2018-09-04] MEDS: HALOPERIDOL 5 MG TAB PO SCH (09:48)
--- NOTE | 2018-09-04 12:55 | P.PN ---
Subjective Progress Note Date: 09/04/18 Progress note dictation date of service 09/04/2018. Patient seen and evaluated [id number]. Her brother did see her today and agreeable for the intermediate transfer with the plan for tomorrow after seen by the neurologist for evaluation of her left hand drop with the underlying unknown etiology except that she fell down on her last admission.. Her vital signs today temperature 98.2 here heart rate 100 respiratory rate 18/m and nonlabored. Blood pressure 129/63 with a mean 85 and her oxygen saturation 98% on room air. Physical exam: HEENT was no change and pupil was equal reactive she is conscious alert oriented and she has a problem with speech but she is aware of the current changes and she stated that she seen her brother Came and visited her in the hospital. The patient will be going for rehab as he is aware of that in [facility] and subsequently he may arrangement in the [facility] to be placed today her and she need complete supervision due to effect that her left hand and pulsating as well as she is unable to ambulate. And she needs sometimes store administrative assistant for feeding as well. The oropharynx is normal and able to eat and swallow. The neck was supple and no JVD no thyromegaly no lymphadenopathy trachea midline. The chest was clear to auscultation and percussion and heart was regular sinus rhythm. Abdomen was soft positive bowel sounds no tenderness. Extremities: No edema in the left lower extremities resolved and pulses was intact. And her left upper and with the splint and no evidence of fracture by the x-ray however she had wrist drop with the subtotally home on all normal pulsating however we are not clear with her current medication and we consulted the neurologist however the did not see her yes yet and we will hopefully reminding them again to see her today. Laboratories: White count today 6.1 hemoglobin 11.1 and hematocrit 32.1. And her platelet count is 167 stable and her potassium is 4.1 corrected as well as we have today the creatinine kinase 411 which is significant improvement from yesterday which is 1131 with the progression of of improvement Blood culture was negative. Urine culture indicating gram-negative bacilli however we don't have the sensitivity or identification yet. And we continued with the Rocephin. No evidence of sepsis her temperature has been normal as well as her white count no acute exacerbation of the white count with the consideration of cystitis is considered. However the urine analysis of the time on 09/02/2018 was indicating large leukocyte and negative nitrite and she had at that time 1+ ketone. Neurologically: Waiting for the neurology assessment. Psychiatry she had underlying extrapyramidal symptoms with lip masking and with the tardive dyskinesia and mild improvement of the speech. Rehabilitation has been consulted and she has difficulty of ambulation as well as full risk. Assessment: #1 risk of fall recurrent. #2 recurrent rhabdomyolysis secondary to frequent fall improving. #3 urinary tract infection, cystitis, gram negative bacilli, negative blood culture, negative sepsis. #4 hypertension controlled. #5 walking disability and need for rehabilitation. #6 schizophrenia with the associated treatment and the adverse effect for extrapyramidal signs. Plan: #1 continue rehabilitation. #2 plan for transfer to [facility] and rehab also a tomorrow. #3 consultation with the neurology and I did discuss it with CHARLENE Nash to notify the neurology for the consult for evaluation of her left hand drop with the unclear etiology. #4 we'll continue the current medication on discharge to intermediate. And we plan for discharge tomorrow if the bed is available. We'll obtain tomorrow creatinine kinase in a.m. #5 the urine culture and sensitivity is not available hopefully will be available by tomorrow. Objective - Vital Signs Vital signs: Vital Signs Temp 98.2 F 09/04/18 08:00 Pulse 100 09/04/18 08:00 Resp 18 09/04/18 11:55 BP 129/63 09/04/18 08:00 Pulse Ox 98 09/04/18 08:00 Intake & Output 09/03/18 09/04/18 09/04/18 18:59 06:59 18:59 Intake Total 702 Output Total 500 900 Balance 202 -900 Weight 54.5 kg Intake: Oral 702 Output: Urine 500 900 Other: Voiding Method Indwelling Catheter Indwelling Catheter Indwelling Catheter - Labs CBC & Chem 7: 09/04/18 06:43 09/04/18 06:43 Labs: Abnormal Lab Results - Last 24 Hours (Table) 09/04/18 09/04/18 Range/Units 06:43 06:43 RBC 3.44 L (3.80-5.40) m/uL Hgb 11.1 L (11.4-16.0) gm/dL Hct 32.1 L (34.0-46.0) % Creatine Kinase 411 H (30-135) U/L Microbiology - Last 24 Hours (Table) 09/02/18 23:05 Blood Culture - Preliminary Blood No Growth after 24 hours 09/02/18 22:14 Blood Culture - Preliminary Blood No Growth after 24 hours 09/02/18 17:30 Urine Culture - Preliminary Urine,Voided Gram Neg Bacilli
--- NOTE | 2018-09-04 18:59 | CT ---
EXAMINATION TYPE: CT brain wo con DATE OF EXAM: 09/04/2018 COMPARISON: 07/28/2018 HISTORY: encephalopathy CT DLP: 1158.4 mGycm Automated exposure control for dose reduction was used. FINDINGS: There is some cerebral cortical atrophy. There is no mass effect nor midline shift. There is no sign of intracranial hemorrhage. The calvarium is intact. IMPRESSION: CEREBRAL ATROPHY. NO ACUTE INTRACRANIAL ABNORMALITY. NO CHANGE.
[2018-09-04] MEDS: QUEtiapine 100 MG TAB PO SCH (21:18)
[2018-09-05 00:35] LABS: Folate, Serum 11.8 ng/mL
[2018-09-05] MEDS: D5-0.9% NACL WITH KCL 20 MEQ/L 1,000 ML IV SCH (01:14)
--- NOTE | 2018-09-05 06:17 | CONS ---
CONSULTATION DATE OF CONSULTATION: 09/04/2018 REFERRING PHYSICIAN: Dr. Gill. HISTORY OF PRESENT ILLNESS: Thank you for allowing me to evaluate Fariha Min who is a 74-year-old right-handed white female who presented to [facility] on 09/02/2018 after being found beside her wheelchair by a caregiver. The patient is a limited historian, but states that she sustained the fall which was unwitnessed in her apartment and could not get herself back up. It is unclear how long the patient laid on the floor. She states she did not strike her head and currently denies headache. The patient is being seen from a neurologic standpoint for evaluation of mental status changes and "left hand palsy" . The patient currently states that her mentation has improved and denied vertigo, diplopia, dysarthria, or focal weakness/numbness in the extremities associated with this event. She denies previous history of stroke or seizure. Today the patient states she is doing "pretty good". The patient was previously admitted to [facility] between 07/28 and 08/01/2018, at which time she had also sustained a fall and apparently laid on the floor for an extended period of time. The patient was found lying on her left side, obtunded and diagnosed with rhabdomyolysis, similar to this hospitalization. On 08/01/2018, the patient was evaluated by Orthopedics due to identification of left wrist drop, which was diagnosed as a left radial nerve palsy. The patient was provided a brace which she is currently wearing. ALLERGIES: No known allergies. HOME MEDICATIONS: Protonix, Feosol, vitamin D, Seroquel 300 mg q.h.s., Haldol 5 mg q. day, Cogentin 0.5 mg t.i.d., and amantadine 100 mg b.i.d. PAST MEDICAL HISTORY: Schizophrenia (the patient has had previous mental health unit admissions) and hypertension. PAST SURGICAL HISTORY: Ganglion cyst removed from the left hand, tonsillectomy and appendectomy. SOCIAL HISTORY: The patient denies tobacco or alcohol use. She is single without children and states that she lives at a facility named [facility] The patient states she is wheelchair bound. FAMILY HISTORY: Noncontributory. REVIEW OF SYSTEMS: Fourteen systems are reviewed and no additional points are identified. The review of systems documented in history and physical. PHYSICAL EXAMINATION: Upon my arrival to the patient's room, she was sitting up in bed, receptive to the examiner. Affect is flat. She is a fair to poor historian. There are no family members at the bedside. The patient appears chronically ill, deconditioned and of stated age. She has facial masking, reduced frequency of blinking, a chin tremor and bilateral upper extremity rest tremors, slightly more prominent on the right. VITAL SIGNS: Blood pressure is 132/64 with a pulse of 92, respiratory rate 18, temperature 97.5, weight is 54.5 kg on a 5-foot 8-inch frame. SKIN AND EXTREMITIES: The patient has left wrist drop and distal left upper extremity is in a brace. Chronic skin changes are noted in the distal lower extremities. HEAD AND NECK: No signs of trauma. Neck is supple without meningeal signs. Bruits are difficult to auscultate as the patient was speaking while I was auscultating. HEART: Regular rate and rhythm. HIGHER CORTICAL FUNCTION: MENTAL STATUS: The patient was alert and oriented to self. She knew she was in a hospital in [place]. She knew the floor, year, month and could name the current president. She was able to name, repeat and read. There was no right left disorientation, finger agnosia, extinction to double simultaneous stimulation or dysarthria. The patient's speech was hesitant/stuttering at times, which seem to correlate in part with her chin tremor. The patient was appropriate and about fci through the evaluation, desktop support consultant brought in the patient's dinner and she asked if the meat could be cut and asked the individual to leave the door open when they left. After the food was brought in, the patient wanted the examiner to leave as she was interested in eating. The patient's food was covered and I asked her to give me a few more minutes, she became quite fixated on eating and after every task was completed. She asked if I would leave and allow her to eat. Within these constraints, cranial nerves II through XII: Pupils are equal and reactive to light symmetrically. No afferent pupillary defect. Visual ornelas are intact to confrontation. III, IV, : Horizontal extraocular movements were intact, there was a reduced upgaze but intact downgaze. V: Pinprick, light touch intact in all 3 divisions. Motor intact. VII: No facial asymmetry or weakness. VIII: Acuity intact to finger rub. IX, X: Palate gabriel in the midline. XI: Trapezius strength intact. XII: Tongue protruded midline without fasciculation or atrophy. MOTOR EXAMINATION: There is no pronator drift. There is reduced bulk in the hamstring and intrinsic muscles with increased tone involving the bilateral upper extremities and bilateral upper extremity rest tremor was noted, which tended to zuly when the patient spontaneously moved her arms. Formal strength testing is limited as the patient was anxious to eat and wanted the examiner out of the room. Within these constraints, the patient did lift both legs off the bed and wiggled the toes symmetrically. She lifted both arms off the bed without drift. Biceps and triceps strength was at least 4+ over 5 bilaterally. The patient had a clear left wrist drop, but would not allow the examiner to discretely examine the hand. She had no wrist or finger drop on the right. SENSORY: Unreliable. REFLEXES: Right-sided listed first, biceps 2, 2; brachioradialis 1,1; triceps 1,1; patella 0, 0; ankle 0, 0. Plantar responses flexor bilaterally. Prather's is absent. COORDINATION: [id number] movements are intact. The patient declined performing [id number]. Rapid alternating movements are slowed bilaterally. DIAGNOSTIC TESTING: Labs on presentation include a white blood count of 4.6 with a hemoglobin of 6.2 (Today's hemoglobin 11.1). Initial platelet count of 102, and today is 167. Sodium 141, potassium 3.2, BUN 16 with a creatinine 0.63, calcium 8.3, magnesium 1.9. ALT 29, AST 69. CPK was initially 2049 and today is 411. Troponin negative. Urinalysis revealed large leukocyte esterase, 139 WBCs, 5 RBCs, negative nitrate. Chest x-ray revealed no acute pathology. Left hand x-ray demonstrated no fracture. Blood cultures revealed no growth at 24 hours. Urine culture revealed E coli. IMPRESSION: 1. Encephalopathy secondary to Escherichia coli urinary tract infection, improved. 2. Left radial nerve palsy, which has been present since the hospitalization in July 2018 where the patient presented following a fall and apparently laid on her left side for an extended period of time. 3. Rhabdomyolysis, likely secondary to lying on the floor, there is no evidence of neuroleptic malignant syndrome. The patient also had rhabdomyolysis in July when she was found on the floor for an extended period of time. 4. Anemia/thrombocytopenia, improved. 5. 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 6. Medical history including schizophrenia with previous mental health unit admissions and hypertension. RECOMMENDATION: 1. I discussed my impression with the patient and she expressed understanding. 2. We will obtain a CT of the brain without contrast and lab work for reversible causes of cognitive decline. 3. Would consider pursuing an outpatient EMG of the left upper extremity to confirm/localize the left radial mononeuropathy and to help prognosticate. 4. Minimize dopamine blocking medications if possible. 5. Treatment of urinary tract infection and evaluation of anemia per primary service. 6. Discharge planning, the patient should have increased supervision and potentially fall alert button. 7. If the CT scan of the brain is unrevealing, the patient may be discharged from a neurologic standpoint when medically stable. Thank you for allowing me to participate in the care of your patient. MMODL / IJN: [id number] /
[2018-09-05] MEDS: PANTOPRAZOLE 40 MG TABLET PO SCH (06:28)
[2018-09-05 06:41] VITALS: BP 130/74; PULSE 83; RESP 15; TEMP 97.8
[2018-09-05 07:07] LABS: HCT 30.3 % (34.0-46.0); HGB 10.1 gm/dL (11.4-16.0); MCH 31.2 pg (25.0-35.0); MCHC 33.4 g/dL (31.0-37.0); MCV 93.5 fL (80.0-100.0); Mean Platelet Volume 8.1; Platelet Count 151 k/uL (150-450); RBC 3.24 m/uL (3.80-5.40)
[2018-09-05] MEDS: amLODIPine 5 MG TAB PO SCH (09:10)
[2018-09-05] MEDS: CHOLECALCIFEROL 1,000 UNIT TAB PO SCH (09:10)
[2018-09-05] MEDS: HALOPERIDOL 5 MG TAB PO SCH (09:11)
[2018-09-05] MEDS: AMANTADINE HCL 100 MG CAP PO SCH (09:11)
[2018-09-05] MEDS: BENZTROPINE MESYLATE 0.5 MG TAB PO SCH (09:11)
[2018-09-05] MEDS: LISINOPRIL-HCTZ 10-12.5 MG 1 EACH TAB PO SCH (09:11)
[2018-09-05 12:44] VITALS: BMI 21.7
--- NOTE | 2018-09-05 14:42 | P.DS ---
Providers Date of admission: 09/02/18 18:17 Expected date of discharge: 09/05/18 (Left arm radial palsy, rhabdomyolysis, UTI, hypertension) Attending physician: Adi Gill Consults: 09/03/18 12:58 Consult Physician Routine Consulting Provider: Edgardo Harrison Consult Reason/Comments: Left hand palsy/ mental status Do you want consulting provider notified?: Yes Primary care physician: Adi Gill This is the diagnosis on discharge. Umber 1 acute rhabdomyolysis secondary to fall. #2 patient is dependent and will need definitive placement in a halfway or assisted living with inability to use her left arm and inability to walk. #3 urinary retention with a Gamble catheter placement, UTI with cystitis, no evidence of sepsis #4 underlying anemia of unknown etiology, found laboratory abnormalities due to lab data with the hemoglobin recovered on the second day which indicating lab her. #5 walking disability. #6 schizophrenia, and tardive dyskinesia #7 left hand radial pulse 80 and need follow-up with the neurology as outpatient Dr. Saez. Patient presented to the emergency room after she fell down from her wheelchair. Found also had hemoglobin 6.2 by the lab in the ER and found also that she had rhabdomyolysis similar to previous admission and apparently she went to [facility] in her lost admission however [facility] discharge the patient with the known that she is dependent. Laboratory today WBC 6 hemoglobin 10.1 and hematocrit 30.3 and the platelet count 151. Today her creatinine kinase 138 normal and her vitamin B12 594 and that T with the normal folic acid 11.8 with a TSH 3.090. Blood culture no growth 2 after 48 hour period and the urine culture indicating E. coli and patient treated with Rocephin. Patient will continue with Augmentin 875 mg twice a day for 3 days. Examination on discharge to [facility] and rehab. Vital sign indicating temperature 97.8 pulse 83 regular sinus respiratory rate 15 normal nonlabored and blood pressure 130/74. Her pulse ox 97% with no need for oxygen. Clinical examination patient is conscious alert oriented 3. She had tardive dyskinesia with extrapyramidal as well as questionable of Parkinson and the as well as has radial pulses he has seen by the neurology in the hospital need follow-up with her neurologist as outpatient. HEENT negative with patient able to eat and swallow with no difficulties, she had difficulty of speech due to tardive dyskinesia and draped basketing due to the previous side effect of Haldol with the underlying schizophrenia Chest is clear to auscultation percussion and the heart was PMI in the fifth intercostal space outside midclavicular line with normal S1-S2 no gallop The abdomen is soft positive bowel sounds no organ enlargement. Extremities has been reasonable edema of the left lower extremities and she had his right lower extremities history of a venous stasis ulcer was treated in the past. She had also difficulties of walking. The etiology is unknown. And Psychiatry schizophrenia and the need also psychiatric evaluation and adjustment of medication in the halfway. Neurology she means a follow-up with Dr. Atkinson in the neurologist as outpatient. Assessment stable general condition for discharge tomorrow [facility] and rehab. We will be following her in the halfway. And need for further rehabilitation. Patient Condition at Discharge: Fair Plan - Discharge Summary Discharge Rx Participant: No New Discharge Prescriptions: New Amoxicillin/Potassium Clav [Augmentin 875-125 Tablet] 1 tab PO BID 3 Days #6 tab amLODIPine [Norvasc] 5 mg PO DAILY tab Lisinopril-Hctz 10-12.5 mg [Zestoretic 10-12.5] 1 each PO DAILY tab Continue Haloperidol [Haldol] 5 mg PO DAILY Benztropine Mesylate 0.5 mg PO TID QUEtiapine FUMARATE [SEROquel] 300 mg PO HS Amantadine HCl [Amantadine] 100 mg PO BID Pantoprazole [Protonix] 40 mg PO DAILY Ferrous Sulfate [Iron (65 MG Elemental)] 325 mg PO DAILY Cholecalciferol [Vitamin D3 (25 Mcg = 1000 Iu)] 1,000 unit PO DAILY Discharge Medication List Benztropine Mesylate 0.5 mg PO TID 06/14/18 [History] Haloperidol [Haldol] 5 mg PO DAILY 06/14/18 [History] Amantadine HCl [Amantadine] 100 mg PO BID 07/28/18 [History] QUEtiapine FUMARATE [SEROquel] 300 mg PO HS 07/28/18 [History] Cholecalciferol [Vitamin D3 (25 Mcg = 1000 Iu)] 1,000 unit PO DAILY 09/02/18 [History] Ferrous Sulfate [Iron (65 MG Elemental)] 325 mg PO DAILY 09/02/18 [History] Pantoprazole [Protonix] 40 mg PO DAILY 09/02/18 [History] Amoxicillin/Potassium Clav [Augmentin 875-125 Tablet] 1 tab PO BID 3 Days #6 tab 09/05/18 [Rx] Lisinopril-Hctz 10-12.5 mg [Zestoretic 10-12.5] 1 each PO DAILY tab 09/05/18 [Rx] amLODIPine [Norvasc] 5 mg PO DAILY tab 09/05/18 [Rx] Follow up Appointment(s)/Referral(s): Adi Gill MD [Primary Care Provider] - 1-2 days Discharge Disposition: TRANSFER TO SNF/ECF
== END 2018-09-05 16:10 | DRG 558 ==
LOC: EC 16:15 → 3NMEDONC 18:17 → 3SCARD 20:30
PROVIDERS: ADMIT Internal Medicine; ATTEND Internal Medicine
DX: M62.82 Rhabdomyolysis (principal); G93.49 Other encephalopathy; G21.19 Other drug induced secondary parkinsonism; D69.6 Thrombocytopenia, unspecified; E86.0 Dehydration; F20.9 Schizophrenia, unspecified; N30.91 Cystitis, unspecified with hematuria; D64.9 Anemia, unspecified; I11.9 Hypertensive heart disease without heart failure; B96.20 Unspecified Escherichia coli [E. coli] as the cause of diseases classified elsewhere; G56.32 Lesion of radial nerve, left upper limb; R29.6 Repeated falls; R33.9 Retention of urine, unspecified; G24.01 Drug induced subacute dyskinesia; T43.4X5A Adverse effect of butyrophenone and thiothixene neuroleptics, initial encounter; T50.905A Adverse effect of unspecified drugs, medicaments and biological substances, initial encounter; Z99.3 Dependence on wheelchair; Z79.899 Other long term (current) drug therapy; Z83.3 Family history of diabetes mellitus; Z81.8 Family history of other mental and behavioral disorders; Z82.3 Family history of stroke; W19.XXXA Unspecified fall, initial encounter; Z87.440 Personal history of urinary (tract) infections
CPT/HCPCS: 36415; 70450; 71046; 80048; 80053; 81001; 82550; 82607; 82746; 83605; 83735; 83880; 84100; 84132; 84443; 84484; 85025; 85027; 86850; 86900; 86901; 87040; 87077; 87086; 87186; 93005; 96361; 96365; 96375; 99285

== ENCOUNTER → 2019-12-16 | Outpatient (CLI) | payer MEDICARE, BC ==
[2019-12-16 13:40] LABS: Basophils # (A) 0.1 k/uL (0-0.2); Basophils % (A) 1 %; Eosinophils # (A) 0.3 k/uL (0-0.7); Eosinophils % (A) 4 %; HCT 39.5 % (34.0-46.0); HGB 12.7 gm/dL (11.4-16.0); Lymphocytes # (A) 1.5 k/uL (1.0-4.8); Lymphocytes % (A) 23 %; MCH 30.5 pg (25.0-35.0); MCHC 32.2 g/dL (31.0-37.0); MCV 94.5 fL (80.0-100.0); Mean Platelet Volume 7.1; Monocytes # (A) 0.4 k/uL (0-1.0); Monocytes % (A) 7 %; Neutrophils # (A) 3.9 k/uL (1.3-7.7); Neutrophils % (A) 63 %; Platelet Count 302 k/uL (150-450); RBC 4.18 m/uL (3.80-5.40); RDW 12.9 % (11.5-15.5); WBC 6.2 k/uL (3.8-10.6)
[2019-12-16 20:14] LABS: Erythrocyte Sedimentation Rate 48 mm/Hr (0-30)
[2019-12-16 20:37] LABS: Hemoglobin A1C 5.8 % (4.0-6.0)
[2019-12-16 21:43] LABS: % Iron Saturation 11.96 (12.00-45.00); African American GFR (CKD) 63.8 (60.0-200.0); Albumin 4.6 g/dL (3.80-4.90); Albumin/Globulin Ratio 1.77 (1.60-3.17); Anion Gap 10.5 mmol/L (4.00-12.00); C Reactive Protein 1.1 mg/dL (0.0-0.8); Calcium 9.8 mg/dL (8.7-10.3); Carbon Dioxide 27.5 mmol/L (21.6-31.8); Chol/HDL Ratio 2.28; Globulin 2.6 g/dL (1.6-3.3); LDL Cholesterol,Calculated 82.8 mg/dL (0.0-131.0); Non-African American GFR(CKD) 55.1 (60.0-200.0); Total Bilirubin 0.4 mg/dL (0.3-1.2); Total Protein 7.2 g/dL (6.2-8.2); VLDL Calculation 17.2 mg/dL (5.00-40.00)
[2019-12-16 21:52] LABS: Ferritin 44.9 ng/mL (10.0-291.0)
== END | disposition home or self-care (01) ==
LOC: LABWHC1 10:41
PROVIDERS: ATTEND Thoracic Surgery (Cardiothoracic Vascular Surgery)
DX: E03.9 Hypothyroidism, unspecified (principal); E55.9 Vitamin D deficiency, unspecified; E87.8 Other disorders of electrolyte and fluid balance, not elsewhere classified; E78.5 Hyperlipidemia, unspecified; E66.9 Obesity, unspecified; E11.65 Type 2 diabetes mellitus with hyperglycemia; D64.9 Anemia, unspecified; M81.0 Age-related osteoporosis without current pathological fracture; I87.013 Postthrombotic syndrome with ulcer of bilateral lower extremity
CPT/HCPCS: 36415; 80053; 80061; 82306; 82550; 82728; 83036; 83540; 83550; 83735; 84443; 85025; 85652; 86140

== ENCOUNTER → 2020-01-25 | Outpatient (CLI) | payer MEDICARE, BC ==
--- NOTE | 2020-01-26 10:07 | MM ---
Reason for exam: screening (asymptomatic). Baseline mammogram. History: Patient is postmenopausal and had first child after 29. Physical Findings: Nurse did not find any significant physical abnormalities on exam. MG 3D Screening Mammo W/Cad Bilateral CC and MLO view(s) were taken. There are scattered fibroglandular densities. There is no discrete abnormality. These results were verbally communicated with the patient and result sheet given to the patient on 01/25/20. ASSESSMENT: Negative, BI-RAD 1 RECOMMENDATION: Routine screening mammogram of both breasts in 1 year.
== END | disposition home or self-care (01) ==
LOC: RADMAMWWP 14:35
PROVIDERS: ATTEND Internal Medicine
DX: Z12.31 Encounter for screening mammogram for malignant neoplasm of breast (principal)
CPT/HCPCS: 77063; 77067

== ENCOUNTER → 2020-07-29 | Outpatient (CLI) | payer BC, MEDICARE ==
--- NOTE | 2020-07-29 11:30 | XR ---
Right hand HISTORY: Trauma and pain 4 views of the right hand There is a displaced oblique distal metaphyseal fracture of the proximal phalanx of the fourth digit of the right hand with associated soft tissue swelling. There may be some punctate associated comminu rk fragments. No evident intra-articular involvement. Bone mineralization is reduced. No dislocation . IMPRESSION: Fourth digit fracture.
== END | disposition home or self-care (01) ==
LOC: RADXRMAIN 09:47
PROVIDERS: ATTEND Internal Medicine
DX: S62.614A Displaced fracture of proximal phalanx of right ring finger, initial encounter for closed fracture (principal)

== ENCOUNTER → 2021-09-21 | Outpatient (CLI) | payer MEDICARE ==
[2021-09-21 18:25] LABS: Basophils # (A) 0.07 X 10*3/uL (0.00-0.10); Eosinophils # (A) 0.13 X 10*3/uL (0.04-0.35); Eosinophils % (A) 1.9 %; HCT 36.2 % (37.2-46.3); Immature Grans, Automated 0.3 %; Lymphocytes % (A) 17.9 %; MCH 30.5 pg (27.0-32.0); MCHC 33.1 g/dL (32.0-37.0); MCV 91.9 fL (80.0-97.0); Mean Platelet Volume 10.7 fL (9.5-12.2); Monocytes # (A) 0.63 X 10*3/uL (0.20-1.00); Monocytes % (A) 9.4 %; NRBC Per 100 WBC 0 /100 WBCS (0.0-0.0); Neutrophils # (A) 4.66 X 10*3/uL (1.80-7.70); Neutrophils % (A) 69.5 %; Platelet Count 250 X 10*3/uL (140-440); RBC 3.94 X 10*6/uL (4.10-5.20); RDW 13.9 % (11.5-14.5); WBC 6.71 X 10*3/uL (4.50-10.00)
[2021-09-21 18:49] LABS: ALT <5 U/L (8-44); AST 16 U/L (13-35); African American GFR (CKD) 89.7 (60.0-200.0); Albumin 4.5 g/dL (3.8-4.9); Albumin/Globulin Ratio 1.73 (1.60-3.17); Alkaline Phosphatase 68 U/L (41-126); Blood Urea Nitrogen 18.6 mg/dL (9.0-27.0); Calcium 9.4 mg/dL (8.7-10.3); Carbon Dioxide 24.9 mmol/L (20.0-27.5); Chloride 101 mmol/L (96-109); Globulin 2.6 g/dL (1.6-3.3); Glucose 146 mg/dL (70-110); Non-African American GFR(CKD) 77.4 (60.0-200.0); Potassium 3.9 mmol/L (3.5-5.5); Sodium 140 mmol/L (135-145); Total Protein 7.1 g/dL (6.2-8.2)
== END | disposition home or self-care (01) ==
LOC: LABWHC1 13:31
PROVIDERS: ATTEND Internal Medicine
DX: I10 Essential (primary) hypertension (principal); N39.0 Urinary tract infection, site not specified
CPT/HCPCS: 36415; 80053; 85025

== ENCOUNTER 2022-03-15 13:18 | Observation (INO) | payer MEDICARE ==
[2022-03-15 14:08] VITALS: TEMP 98
--- NOTE | 2022-03-15 14:47 | ED ---
General Adult HPI - General Chief complaint: Recheck/Abnormal Lab/Rx Stated complaint: Blood Clot, Sent by US Time Seen by Provider: 03/15/22 14:29 Source: patient, family Mode of arrival: wheelchair Limitations: no limitations - History of Present Illness Initial comments: Dictation was produced using [employer] dictation software. please excuse any g rammatical, word or spelling errors. Chief Complaint: 76-year-old female presents to the emergency department for abnormal ultrasound History of Present Illness: Patient is 76-year-old female she presents to the emergency department for abnormal ultrasound. Today she had a venous duplex ultrasound of bilateral lower extremities. The right lower extremity was positive for DVT. Radiology called patient's primary care doctor was ordering physician and she was redirected to the emergency department. Patient currently asymptomatic in her right lower extremity. She's been battling cellulitis that's been treated outpatient by her primary care doctor. Patient states she's had a blood clot in her leg for several years. Patient has any chest pain or shortness of breath. Denies any leg pain. She's been treated for cellulitis of her left leg. The ROS documented in this emergency department record has been reviewed and confirmed by me. Those systems with pertinent positive or negative responses have been documented in the HPI. All other systems are other negative and/or noncontributory. PHYSICAL EXAM: General Impression: Alert and oriented x3, not in acute distress HEENT: Normocephalic atraumatic, extra-ocular movements intact, pupils equal and reactive to light bilaterally, mucous membranes moist. Cardiovascular: Heart regular rate and rhythm Chest: Able to complete full sentences, no retractions, no tachypnea Abdomen: abdomen soft, non-tender, non-distended, no organomegaly Musculoskeletal: Pulses present and equal in all extremities, no peripheral edema Motor: no focal deficits noted Neurological: CN II-XII grossly intact, no focal motor or sensory deficits noted Skin: Intact with no visualized rashes Psych: Normal affect and mood ED course: 76-year-old well-appearing female presents emergency department for abnormal ultrasound. Ultrasound from today was reviewed showing DVT in her right popliteal right femoral vein. Ultrasound imaging was reviewed with radiologist. Patient had a ultrasound of the right lower extremity in 2019 that shows similar findings. Radiologist felt that after reevaluation of her scans that clinical presentation consistent with chronic right lower extremity DVT. Patient on any blood thinners. Nursing notes and chart review was performed Case was discussed with patient's legal guardian, Aniket Min. Laboratory evaluation obtained. CBC unremarkable. Coag panel is negative. Metabolic panel is negative. Patient's primary care physician came to the bedside to evaluate the patient. He spoke with patient and convince patient that she should be admitted for cellulitis treatment. Consult were placed on behalf of admitting physician for infectious disease. Was pt. sent in by a medical professional or institution (, HIEN, [employer], urgent care, hospital, or prison...) When possible be specific @ -Primary care physician Did you speak to anyone other than the patient for history (EMS, parent, family, police, friend...)? What history was obtained from this source @ -[facility] staff member at the bedside Did you review nursing and triage notes (agree or disagree)? Why? @ -I reviewed and agree with nursing and triage notes Were old charts reviewed (outside hosp., previous admission, EMS record, old EKG, old radiological studies, urgent care reports/EKG's, prison records)? Report findings @ -Ultrasound from 06/14/2018 was reviewed showing similar appearing DVT Differential Diagnosis (chest pain, altered mental status, abdominal pain women, abdominal pain men, vaginal bleeding, weakness, fever, dyspnea, syncope, headache, dizziness, GI bleed, back pain, seizure, CVA, palpatations, mental health)? @ -not applicable EKG interpreted by me (3pts min.). @ -None done X-rays interpreted by me (1pt min.). @ -None done CT interpreted by me (1pt min.). @ -None done U/S interpreted by me (1pt. min.). @ -None done What testing was considered but not performed or refused? (CT, X-rays, U/S, labs)? Why? @ -None What meds were considered but not given or refused? Why? @ -None Did you discuss the management of the patient with other professionals (professionals i.e. HIEN Kincaid, BATCH TANK CONTR[employer]LLER, lab, RT, psych nurse, director of social work, java lead, teacher, biological technical officer, case assembler)? Give summary @ -Vascular surgeon, , primary care physician, Dr. Gill Was smoking cessation discussed for >3mins.? @ -No Was critical care preformed (if so, how long)? @ -No Were there social determinants of health that impacted care today? How? (Homelessness, low income, unemployed, alcoholism, drug addiction, transportation, low edu. Level, literacy, decrease access to med. care, penitentiary, rehab)? @ -No Was there de-escalation of care discussed even if they declined (Discuss DNR or withdrawal of care, Hospice)? DNR status @ -No What co-morbidities impacted this encounter? (DM, HTN, Smoking, COPD, CAD, Cancer, CVA, ARF, Chemo, Hep., AIDS, mental health diagnosis, sleep apnea, morbid obesity)? @ -None Was patient admitted / discharged? Hospital course, mention meds given and route, prescriptions, significant lab abnormalities, going to OR and other pertinent info. @ -See above Undiagnosed new problem with uncertain prognosis? @ -No Drug Therapy requiring intensive monitoring for toxicity (Heparin, Nitro, Insulin, Cardizem)? @ -No Were any procedures done? @ -No Diagnosis/symptom? @ -Not applicable Acute, or Chronic, or Acute on Chronic? @ -Not applicable Uncomplicated (without systemic symptoms) or Complicated (systemic symptoms)? @ -default Side effects of treatment? @ -No Exacerbation, Progression, or Severe Exacerbation? @ -No Poses a threat to life or bodily function? How? (Chest pain, [place], [place], pneumonia, PE, COPD, DKA, ARF, appy, cholecystitis, CVA, Diverticulitis, Homicidal, [place] is[place], threat to staff... and all critical care pts) @ -No - Related Data Home Medications Medication Instructions Recorded Confirmed Benztropine Mesylate 0.5 mg PO TID 06/14/18 09/02/18 haloperidoL [Haldol] 5 mg PO DAILY 06/14/18 09/02/18 QUEtiapine FUMARATE [SEROquel] 300 mg PO HS 07/28/18 09/02/18 amantadine HCL [Amantadine] 100 mg PO BID 07/28/18 09/02/18 Cholecalciferol [Vitamin D3 (25 1,000 unit PO DAILY 09/02/18 09/02/18 Mcg = 1000 Iu)] Ferrous Sulfate [Iron (65 MG 325 mg PO DAILY 09/02/18 09/02/18 Elemental)] Pantoprazole [Protonix] 40 mg PO DAILY 09/02/18 09/02/18 Previous Rx's Medication Instructions Recorded Amoxicillin/Potassium Clav 1 tab PO BID 3 Days #6 tab 09/05/18 [Augmentin 875-125 Tablet] Lisinopril-Hctz 10-12.5 mg 1 each PO DAILY tab 09/05/18 [Zestoretic 10-12.5] amLODIPine [Norvasc] 5 mg PO DAILY tab 09/05/18 Allergies Allergy/AdvReac Type Severity Reaction Status Date / Time No Known Allergies Allergy Verified 09/02/18 16:22 Review of Systems ROS Statement: Those systems with pertinent positive or pertinent negative responses have been documented in the HPI. ROS Other: All systems not noted in ROS Statement are negative. Past Medical History Past Medical History: Hypertension History of Any Multi-Drug Resistant Organisms: None Reported Past Surgical History: No Surgical Hx Reported Past Psychological History: Anxiety, Depression, Schizophrenia Past Alcohol Use History: None Reported Past Drug Use History: None Reported - Past Family History Father Family Medical History: CVA/TIA, Diabetes Mellitus General Exam Limitations: no limitations Course Vital Signs 03/15/22 14:06 Temperature 98 F Pulse Rate 87 Respiratory 16 Rate Blood Pressure 137/74 O2 Sat by Pulse 96 Oximetry Medical Decision Making - Lab Data Result diagrams: 03/15/22 14:43 03/15/22 14:43 Lab Results 03/15/22 03/15/22 03/15/22 Range/Units 14:43 14:43 14:43 WBC 5.0 (3.8-10.6) k/uL RBC 3.70 L (3.80-5.40) m/uL Hgb 11.4 (11.4-16.0) gm/dL Hct 34.1 (34.0-46.0) % MCV 92.2 (80.0-100.0) fL MCH 30.8 (25.0-35.0) pg MCHC 33.4 (31.0-37.0) g/dL RDW 13.4 (11.5-15.5) % Plt Count 257 (150-450) k/uL MPV 7.7 Neutrophils % 60 % Lymphocytes % 25 % Monocytes % 9 % Eosinophils % 4 % Basophils % 1 % Neutrophils # 3.0 (1.3-7.7) k/uL Lymphocytes # 1.3 (1.0-4.8) k/uL Monocytes # 0.4 (0-1.0) k/uL Eosinophils # 0.2 (0-0.7) k/uL Basophils # 0.0 (0-0.2) k/uL PT 10.1 (9.0-12.0) sec INR 0.9 (<1.2) APTT 24.3 (22.0-30.0) sec Sodium 139 (137-145) mmol/L Potassium 4.1 (3.5-5.1) mmol/L Chloride 106 (98-107) mmol/L Carbon Dioxide 27 (22-30) mmol/L Anion Gap 6 mmol/L BUN 17 (7-17) mg/dL Creatinine 0.67 (0.52-1.04) mg/dL Est GFR (CKD-EPI)AfAm >90 (>60 ml/min/1.73 sqM) Est GFR (CKD-EPI)NonAf 85 (>60 ml/min/1.73 sqM) Glucose 144 H (74-99) mg/dL Calcium 9.0 (8.4-10.2) mg/dL Disposition Clinical Impression: Abnormal ultrasound Disposition: ADMITTED IP TO THIS HOSP Condition: Fair Referrals: Adi Gill MD [Primary Care Provider] - 1-2 days Decision Time: 15:53
[2022-03-15] MEDS ORDERED: CARBIDOPA-LEVODOPA ER 50-200MG 1 EACH TABLET.ER PO STA (15:00)
[2022-03-15] MEDS ORDERED: hydrALAZINE HCL 25 MG TAB PO STA (15:06)
[2022-03-15] MEDS ORDERED: BENZTROPINE MESYLATE 0.5 MG TAB PO ONE (15:15)
[2022-03-15 15:17] LABS: Basophils % (A) 1 %; Eosinophils # (A) 0.2 k/uL (0-0.7); Eosinophils % (A) 4 %; HCT 34.1 % (34.0-46.0); HGB 11.4 gm/dL (11.4-16.0); Lymphocytes # (A) 1.3 k/uL (1.0-4.8); Lymphocytes % (A) 25 %; MCH 30.8 pg (25.0-35.0); MCHC 33.4 g/dL (31.0-37.0); MCV 92.2 fL (80.0-100.0); Mean Platelet Volume 7.7; Monocytes # (A) 0.4 k/uL (0-1.0); Monocytes % (A) 9 %; Neutrophils % (A) 60 %; Platelet Count 257 k/uL (150-450); RDW 13.4 % (11.5-15.5)
[2022-03-15 15:28] LABS: INR 0.9 (<1.2); Partial Thromboplastin Time 24.3 sec (22.0-30.0); Prothrombin Time 10.1 sec (9.0-12.0)
[2022-03-15 15:34] LABS: African American GFR (CKD) >90 (>60 ml/min/1.73 sqM); Anion Gap 6 mmol/L; Blood Urea Nitrogen 17 mg/dL (7-17); Carbon Dioxide 27 mmol/L (22-30); Chloride 106 mmol/L (98-107); Glucose 144 mg/dL (74-99); Non-African American GFR(CKD) 85 (>60 ml/min/1.73 sqM); Potassium 4.1 mmol/L (3.5-5.1); Sodium 139 mmol/L (137-145)
[2022-03-15] MEDS ORDERED: NALOXONE 0.4 MG/ML 1 ML VIAL IV PRN (15:48)
[2022-03-15] MEDS ORDERED: ALPRAZolam 0.25 MG TAB PO PRN (16:52)
[2022-03-15] MEDS ORDERED: haloperidoL 0.5 MG TAB PO STA (17:01)
[2022-03-15 17:38] VITALS: BP 119/76; PULSE 84; RESP 18
--- NOTE | 2022-03-15 18:06 | P.HPIM ---
History of Present Illness H&P Date: 03/15/22 (bilateral edema of lower extremites) Chief Complaint: edema of her leg with erythema of shaft dict#[id number] disch#[id number] Past Medical History Past Medical History: Hypertension History of Any Multi-Drug Resistant Organisms: None Reported Past Surgical History: No Surgical Hx Reported Past Psychological History: Anxiety, Depression, Schizophrenia Past Alcohol Use History: None Reported Past Drug Use History: None Reported - Past Family History Father Family Medical History: CVA/TIA, Diabetes Mellitus Medications and Allergies Home Medications Medication Instructions Recorded Confirmed Type Benztropine Mesylate 0.5 mg PO TID@0700,1400,199906/14/18 03/15/22 History Cholecalciferol [Vitamin D3 (25 25 mcg PO W/SUPPER@169909/02/18 03/15/22 History Mcg = 1000 Iu)] Ferrous Sulfate [Iron (65 MG 325 mg PO W/SUPPER@169909/02/18 03/15/22 History Elemental)] Pantoprazole [Protonix] 40 mg PO DAILY@0709/02/18 03/15/22 History Carbidopa-Levodopa ER 50-200Mg 1 tab PO BID@0700,1400 03/15/22 03/15/22 History [Sinemet CR 50-200 mg] Collagenase [Santyl Ointment] 1 applic TOPICAL DAILY@139903/15/22 03/15/22 History Lactulose 20 gm PO Q2D@0700 03/15/22 03/15/22 History Losartan Potassium 100 mg PO DAILY@69903/15/22 03/15/22 History QUEtiapine [SEROquel] 100 mg PO HS@199903/15/22 03/15/22 History Sennosides/Docusate Sodium [Senna 1 tab PO DAILY@69903/15/22 03/15/22 History Plus 8.6-50 mg Tablet] Sertraline [Zoloft] 75 mg PO DAILY@69903/15/22 03/15/22 History amLODIPine [Norvasc] 10 mg PO HS@199903/15/22 03/15/22 History haloperidoL [Haldol] 7.5 mg PO DAILY@0700 03/15/22 03/15/22 History hydrALAZINE HCL [Apresoline] 25 mg PO TID@0700,1400,2000 03/15/22 03/15/22 History polyethylene glycoL 3350 [Miralax] 17 gm PO DAILY@0700 03/15/22 03/15/22 History Allergies Allergy/AdvReac Type Severity Reaction Status Date / Time No Known Allergies Allergy Verified 03/15/22 17:05 Physical Exam Vitals: Vital Signs Temp Pulse Resp BP Pulse Ox 03/15/22 14:06 98 F 87 16 137/74 96 Intake and Output 03/15/22 03/15/22 03/15/22 06:59 14:59 22:59 Other: Weight 69.853 kg Results CBC & Chem 7: 03/15/22 14:43 03/15/22 14:43 Labs: Abnormal Lab Results - Last 24 Hours (Table) 03/15/22 03/15/22 03/15/22 Range/Units 14:43 14:43 14:43 RBC 3.70 L (3.80-5.40) m/uL D-Dimer 2.20 H (<0.60) mg/L FEU Glucose 144 H (74-99) mg/dL
[2022-03-15] MEDS ORDERED: BENZTROPINE MESYLATE 0.5 MG PO SCH (20:00)
[2022-03-15] MEDS ORDERED: QUETIAPINE 100 MG PO SCH (20:00)
[2022-03-15] MEDS ORDERED: amLODIPine 10 MG TAB PO SCH ×2 (20:00→21:00)
[2022-03-15] MEDS ORDERED: HYDRALAZINE HCL 25 MG PO SCH (20:00)
--- NOTE | 2022-03-15 20:06 | CONS ---
CONSULTATION HISTORY OF PRESENT ILLNESS: This is a 76-year-old white female. She came to the emergency room with history of mild cellulitis of the left lower extremity. The patient is under care of Dr. Gill. The patient had ultrasound of the both legs. Ultrasound shows the right leg has a chronic DVT; left leg, no evidence of thrombophlebitis or evidence of DVT. PAST MEDICAL HISTORY: The patient has a history of chronic clot in the right lower extremity. The patient has been following Dr. Gill for medical reasons. PHYSICAL EXAMINATION: GENERAL: The patient was seen in the emergency room. NECK: Supple. No bruit appreciated. CHEST: Clear. Good air entry in both lungs. HEART: First and second sounds present. ABDOMEN: Soft and nontender. VASCULAR: Femorals are 1+. The patient has a mild cellulitis of the left lower extremity. No evidence of calf tenderness. No evidence of phlebitis or venous stasis ulcer. PLAN: Discussed with Dr. Gill. The patient will go home today. We prescribed Silvadene cream, which should be applied daily and compression stocking, and the patient will be seen in the office in 1 week. MMODL / IJN: [id number] /
[2022-03-15] MEDS ORDERED: QUEtiapine 100 MG TAB PO SCH (21:00)
--- NOTE | 2022-03-15 21:06 | DS ---
DISCHARGE SUMMARY She was in the examination room in the ER #5, and she was discharged from the ER. She is a FULL CODE. DATA: 5 feet 6 inches, weight is 69.853 kg, BSA is 1.7 m2, and BMI 24.9 kg/m2. ALLERGIES: Unknown. FINAL DIAGNOSES: As mentioned: 1. She had a right chronic deep venous thrombosis on the two areas in the popliteal and femoral, however, seen by the vascular surgeon and Dr. Phelan, and they noted that it is chronic and not acute. 2. The patient has a superficial skin cellulitis and amenable to be treated as outpatient. Other diagnoses: 1. She had history of hypertension, controlled. 2. History of severe psychiatric disorder and she has bipolar disorder as well as she has schizophrenia as well as she has a history of anxiety disorder and depression. She had gait and mobility abnormalities, urinary incontinence, and she had venous insufficiency as well as wearing compression stocking added from previous problem. She had history of hypertension and history of chronic constipation as well and history of tremor with the side effects of the Haldol, which has been chronically present. HOSPITAL COURSE: The patient was stable on discharge and admitted and discharged at the same hours without having any added treatment. The patient was also seen by the vascular surgeon and he will be following her as outpatient and we will be followed as well as outpatient and continued her treatment, and she is currently on antibiotic added from the office as well as the Lasix for the edema with leg elevation and continued her home medication for the psychiatric disorder as well as she is going to use SSD cream/ointment on the legs for the superficial cellulitis of the skin. The patient was discharged in stable general condition. Her vital sign was also stable. MMODL / IJN: [id number] /
--- NOTE | 2022-03-15 21:52 | P.CONS ---
History of Present Illness - Reason for Consult Consult date: 03/15/22 Left lower extremity cellulitis Requesting physician: Adi Gill - Chief Complaint Abnormal ultrasound x one day - History of Present Illness Patient is a 76-year-old female with a past medical history significant for hypertension anxiety depression has if any history of DVT patient also have a chronic wound to the right gluteal area for which the patient to follow at [facility] [place] for the last 3 weeks and the patient was seen in the wound care center today did have some debridement done patient also noticed to have increasing swelling to bilateral lower extremity with more redness to the left leg and this patient finished a mild aching pain 2-3 out of 10 and no radiation evacuation currently do not have any blister or open wound to the left lower extremity mostly diffuse swelling and redness patient apparently did have a Doppler ultrasound in outpatient setting that was positive for DVT for the patient was sent to the ER for further evaluation, patient on presentation to the hospital was afebrile, patient did have normal white count of 5.0 creatinine was normal infectious disease was consulted for left lower extremity cellulitis and antibiotic therapy Review of Systems Positive point has been mentioned in the HPI rest of the systems are negative Past Medical History Past Medical History: Hypertension History of Any Multi-Drug Resistant Organisms: None Reported Past Surgical History: No Surgical Hx Reported Past Psychological History: Anxiety, Depression, Schizophrenia Past Alcohol Use History: None Reported Past Drug Use History: None Reported - Past Family History Father Family Medical History: CVA/TIA, Diabetes Mellitus Medications and Allergies Home Medications Medication Instructions Recorded Confirmed Type Benztropine Mesylate 0.5 mg PO TID@0700,1400,199906/14/18 03/15/22 History Cholecalciferol [Vitamin D3 (25 25 mcg PO W/SUPPER@169909/02/18 03/15/22 History Mcg = 1000 Iu)] Ferrous Sulfate [Iron (65 MG 325 mg PO W/SUPPER@169909/02/18 03/15/22 History Elemental)] Pantoprazole [Protonix] 40 mg PO DAILY@0700 09/02/18 03/15/22 History Carbidopa-Levodopa ER 50-200Mg 1 tab PO BID@0700,1400 03/15/22 03/15/22 History [Sinemet CR 50-200 mg] Collagenase [Santyl Ointment] 1 applic TOPICAL DAILY@1400 03/15/22 03/15/22 History Lactulose 20 gm PO Q2D@0700 03/15/22 03/15/22 History Losartan Potassium 100 mg PO DAILY@69903/15/22 03/15/22 History QUEtiapine [SEROquel] 100 mg PO HS@199903/15/22 03/15/22 History Sennosides/Docusate Sodium [Senna 1 tab PO DAILY@69903/15/22 03/15/22 History Plus 8.6-50 mg Tablet] Sertraline [Zoloft] 75 mg PO DAILY@69903/15/22 03/15/22 History amLODIPine [Norvasc] 10 mg PO HS@199903/15/22 03/15/22 History haloperidoL [Haldol] 7.5 mg PO DAILY@69903/15/22 03/15/22 History hydrALAZINE HCL [Apresoline] 25 mg PO TID@0700,1400,199903/15/22 03/15/22 History polyethylene glycoL 3350 [Miralax] 17 gm PO DAILY@69903/15/22 03/15/22 History Allergies Allergy/AdvReac Type Severity Reaction Status Date / Time No Known Allergies Allergy Verified 03/15/22 17:05 Physical Exam Vitals: Vital Signs Temp Pulse Resp BP Pulse Ox 03/15/22 17:37 84 18 119/76 100 03/15/22 14:06 98 F 87 16 137/74 96 Intake and Output 03/15/22 03/15/22 03/15/22 06:59 14:59 22:59 Other: Weight 69.853 kg GENERAL DESCRIPTION: Elderly female up in the chair, no distress. No tachypnea or accessory muscle of respiration use. HEENT: Shows Pallor , no scleral icterus. Oral mucous membrane is dry. No pharyn geal erythema or thrush NECK: Trachea central, no thyromegaly. LUNGS: Unlabored breathing. Clear to auscultation anteriorly. No wheeze or crackle. HEART: S1, S2, regular rate and rhythm. No loud murmur ABDOMEN: Soft, no tenderness , guarding or rigidity, no organomegaly EXTREMITIES: Diffuse swelling to bilateral lower extremity left greater than right patient did have evidence of redness and warmth to touch. SKIN: No rash, no masses palpable. NEUROLOGICAL: The patient is awake, alert, oriented x3, mood and affect normal. Results CBC & Chem 7: 03/15/22 14:43 03/15/22 14:43 Labs: Abnormal Lab Results - Last 24 Hours (Table) 03/15/22 03/15/22 03/15/22 Range/Units 14:43 14:43 14:43 RBC 3.70 L (3.80-5.40) m/uL D-Dimer 2.20 H (<0.60) mg/L FEU Glucose 144 H (74-99) mg/dL Assessment and Plan (1) Left leg cellulitis Status: Acute Code(s): L03.116 - CELLULITIS OF LEFT LOWER LIMB SNOMED Code(s): 143435046 Plan: 1patient with a history of chronic swelling to bilateral lower extremity in history of DVT presenting with abnormal ultrasound and also having increasing swelling redness to left lower extremity concern for possible cellulitis likely from gram-positive skin jun such as Streptococcus clinically doubt MRSA 2marked the area of the redness 3we will suggest cefazolin 2 g every 8 hours if the patient got admitted however if the patient ended up getting discharge recommending Keflex 500 mg 3 times a day for 7 days this was explained to the family at the bedside We will follow on clinical condition and cultures to further adjust medication if needed Thank you for this consultation will follow this patient with you Time with Patient: Greater than 30
[2022-03-15] MEDS ORDERED: BENZTROPINE MESYLATE 0.5 MG TAB PO SCH (22:00)
[2022-03-15] MEDS ORDERED: hydrALAZINE HCL 25 MG TAB PO SCH (22:00)
--- NOTE | 2022-03-15 22:57 | HP ---
HISTORY AND PHYSICAL This is the admission and discharge note. She is a 76-year-old female, seen in the ER, module 5 examination room and also discharged in the emergency room from being in the emergency room, she never admitted to the floor. She is a FULL CODE. Her height 5 feet 6 inches, weight 69.853 kg, BSA 1.79 m2, BMI 24.9 kg/m2. ALLERGIES: Unknown. I am dictating the admission as well as the discharge from the ER after the patient was seen and evaluated. HISTORY OF PRESENT ILLNESS AND CHIEF COMPLAINT: The patient presented to the office today with the complaint of leg swelling and erythema of the legs on both sides on the shaft of the tibia bilaterally and she has been seen in the Wound Clinic at [facility] for underlying event of deep decubitus in the right gluteal area, has been treated in the wound clinic. The patient at that time seen in the office because of her leg edema, pitting in nature, progressively worsening and with erythema. At that time, the patient after examining in the office, she was sent to the [facility] ultrasound for ruling out DVT. Subsequently, the patient had ultrasound and venous duplex scan in [facility] and I was called at that time. The patient had DVT in the right lower extremity in 2 sites, 1 in the popliteal, 1 in the femoral. At that time, there is no note from the Radiology to indicate it is chronic or it is acute. However, she has edema and pitting edema and the suspicious was high. I give her at that time laboratory testing and D-dimer to indicate if there is activity or not, meanwhile, the erythema, and we started her on oral Keflex 3 times a day for 1 week, and after she went to the hospital with the ultrasound, they called me to inform me with the results with the unknown previous history of chronic DVT. The patient sent to the emergency room, where she was seen by the ER physician, and at that time, they ER physician did talk to the Radiology as we stated and they said that it is the same as it was in 2019, and over this 3 years or 4 years, has been the same, and at this time with these underlying effects, we consulted Dr. Phelan, the vascular surgeon as well as I did see her in the ER with the underlying pitting edema. We consulted also Dr. Curt, Infectious Disease. Subsequently as the patient was seen by Dr. Phelan, he talked to me indicating that this is chronic and he is not concerned about it, and meanwhile, she wants to go home with the underlying history of significant psychiatric problem and medication, and she had history of bipolar as well as depression as well as schizophrenia. She is more comfortable at home. Dr. Phelan also stated that his erythema of the left leg and cellulitis is not significant, and he will be treating this with the Silvadene Silver cream, which is already I gave her prescription for that as well as antibiotic, and he will be following her as outpatient in his office, and as the patient requests to be going home as well and Dr. Phelan agreed that she can be treated as outpatient and at that time, the patient discharged from the ER to go home with the home medication added to the medication that is given to her from the office and the office medication was indicating that she is getting her medication of Keflex 500 mg t.i.d. for 1 week as well as SSD cream to be applied once a day on her leg calf as well as she will be followed by Dr. Greyson Phelan, the vascular surgeon. Meanwhile, she continued her home medication, which I did reconcile the home medication and she continued on the same medication. I did review her laboratories as well done in the emergency room as well as her vital sign, which was stable as well as laboratory with no significant abnormalities. However, I requested the D-dimer, which was not done in the emergency room. PAST MEDICAL HISTORY: She is never , she has no history of smoking or drinking any alcoholic beverages, and she has 1 brother, who is Mr. J Carlos Min, who is the caregiver. REVIEW OF SYSTEMS: Only contributory for the leg swelling and edema, otherwise, noncontributory. PHYSICAL EXAMINATION: GENERAL: On the mehe-tw-citv examination, the patient was conscious, alert. She is having multiple psychiatric problems. She was unable to walk and she is in the wheel chair. HEENT: Her head was normocephalic, atraumatic. Pupils were equal and reactive. Her ear was negative, minimal wax. Nose was negative. She had natural teeth, stable in midline. NECK: Supple. No JVD. No thyromegaly. No lymphadenopathy. Trachea midline. CHEST: Mild kyphoscoliosis, however, the lung has normal breath sounds bilaterally. No wheezes. No rhonchi. HEART: PMI in the 5th intercostal space with normal S1, S2. No gallop. ABDOMEN: Soft, nontender. Positive bowel sounds. EXTREMITIES: As mentioned, she had positive pulses bilateral, but she had cellulitis of both left and right shaft of the leg with edema, pitting edema, 2+ as well. We added to her medication in the office as seen today, also Lasix 20 mg once a day and she had been taken losartan. She had history of previously . She had a past history of hypertension and she has been treated. She had history of seeing a psychiatrist and several of them, last one Dr. Tse and he be seen. She has gait and mobility abnormalities. She has venous insufficiency of the bilateral and she wear as well stocking compression stocking and she has as mentioned bipolar disorder and schizophrenia and tremors intermittently secondary to the extrapyramidal as well as anxiety and insomnia as well as tremors as well as urinary incontinence intermittently. The procedure done was done as outpatient today for the ultrasound of the lower extremities and found to be right leg DVT in the femoral and the popliteal vein, however, I was told that the left leg has no DVT. This event is chronic and as mentioned, seen by Dr. Greyson Phelan, the vascular surgeon and he was not concerned about that at this time and will be treated as outpatient with continuation of her medication. The patient was discharged from the ER after seen by Dr. Greyson Phelan. MMODL / IJN: [id number] /
[2022-03-16] MEDS ORDERED: HALOPERIDOL 5 MG PO SCH (07:00)
[2022-03-16] MEDS ORDERED: DOCUSATE SODIUM PO SCH (07:00)
[2022-03-16] MEDS ORDERED: POLYETHYLENE GLYCOL 119 GM PO SCH (07:00)
[2022-03-16] MEDS ORDERED: SERTRALINE 50 MG PO SCH (07:00)
[2022-03-16] MEDS ORDERED: SENNOSIDES PO SCH (07:00)
[2022-03-16] MEDS ORDERED: PANTOPRAZOLE 40 MG PO SCH (07:00)
[2022-03-16] MEDS ORDERED: NON FORMULARY DRUG (Losartan Potassium [Losartan Potassium] 100 MG Tablet) PO SCH (07:00)
[2022-03-16] MEDS ORDERED: [UNRECOGNIZED DRUG - OTHER] PO SCH (07:00)
[2022-03-16] MEDS ORDERED: LOSARTAN 50 MG TAB PO SCH (09:00)
[2022-03-16] MEDS ORDERED: BENZTROPINE MESYLATE 0.5 MG TAB PO SCH (09:00)
[2022-03-16] MEDS ORDERED: SERTRALINE 50 MG TAB PO SCH (09:00)
[2022-03-16] MEDS ORDERED: COLLAGENASE TOPICAL SCH (14:00)
[2022-03-16] MEDS ORDERED: NON FORMULARY DRUG (Cholecalciferol 1,000 UNIT Tab) PO SCH (17:00)
[2022-03-16] MEDS ORDERED: CARBIDOPA-LEVODOPA ER 50-200MG 1 EACH TABLET.ER PO PRN (17:24)
[2022-03-17] MEDS ORDERED: LACTULOSE 20 GM/30 ML PO SCH (07:00)
== END 2022-03-15 17:40 | disposition home or self-care (01) ==
LOC: EC 13:18 → 6NMEDSUR 15:48
PROVIDERS: ADMIT Internal Medicine; ATTEND Internal Medicine
DX: I82.511 Chronic embolism and thrombosis of right femoral vein (principal); I82.531 Chronic embolism and thrombosis of right popliteal vein; L03.90 Cellulitis, unspecified; R60.0 Localized edema; F31.9 Bipolar disorder, unspecified; F20.9 Schizophrenia, unspecified; F41.9 Anxiety disorder, unspecified; R26.9 Unspecified abnormalities of gait and mobility; R32 Unspecified urinary incontinence; I10 Essential (primary) hypertension; K59.09 Other constipation; G25.1 Drug-induced tremor; T43.4X5A Adverse effect of butyrophenone and thiothixene neuroleptics, initial encounter; Z79.899 Other long term (current) drug therapy; Z82.3 Family history of stroke; Z83.3 Family history of diabetes mellitus
CPT/HCPCS: 99285; 36415; 93005; 85379; 80048; 85025; 85610; 85730; G0378

== ENCOUNTER → 2022-03-15 | Outpatient (CLI) | payer MEDICARE ==
--- NOTE | 2022-03-15 13:20 | US ---
EXAMINATION TYPE: US venous doppler duplex LE DATE OF EXAM: 03/15/2022 1:01 PM COMPARISON: NONE CLINICAL HISTORY: R60.0 edema, L03.115 L03.116 cellulitis left/right. Edema SIDE PERFORMED: Bilateral TECHNIQUE: The lower extremity deep venous system is examined utilizing real time linear array sonog radhika with graded compression, doppler sonography and color-flow sonography. VESSELS IMAGED: Common Femoral Vein Deep Femoral Vein Greater Saphenous Vein * Femoral Vein Popliteal Vein Small Saphenous Vein * Proximal Calf Veins (* superficial vessels) Right Leg: Positive for DVT Femoral and Popliteal Veins. Left Leg: Negative for DVT, Grayscale, color doppler, spectral doppler imaging performed of the deep veins of the lower extremities. There is normal flow, compressibility, vascular waveforms. IMPRESSION: Positive deep vein to most of the femoral and popliteal veins on the right. Ordering provider was contacted and patient was directed to the ER.
== END | disposition home or self-care (01) ==
LOC: RADUSWWP 12:32
PROVIDERS: ATTEND Internal Medicine
DX: I82.431 Acute embolism and thrombosis of right popliteal vein (principal); I82.411 Acute embolism and thrombosis of right femoral vein; L03.115 Cellulitis of right lower limb; L03.116 Cellulitis of left lower limb; E11.65 Type 2 diabetes mellitus with hyperglycemia; E55.9 Vitamin D deficiency, unspecified
CPT/HCPCS: 93970

== ENCOUNTER → 2022-06-19 | Outpatient (CLI) | payer MEDICARE ==
[2022-06-19 15:52] LABS: Basophils # (A) 0.11 X 10*3/uL (0.00-0.10); Basophils % (A) 1.4 %; Eosinophils # (A) 0.16 X 10*3/uL (0.04-0.35); Eosinophils % (A) 2.1 %; HCT 34.3 % (37.2-46.3); HGB 11.2 g/dL (12.0-15.0); Immature Grans, Automated 0.1 %; Lymphocytes % (A) 19.3 %; MCH 30.5 pg (27.0-32.0); MCHC 32.7 g/dL (32.0-37.0); MCV 93.5 fL (80.0-97.0); Mean Platelet Volume 10.1 fL (9.5-12.2); Monocytes # (A) 0.52 X 10*3/uL (0.20-1.00); Monocytes % (A) 6.7 %; NRBC Per 100 WBC 0 /100 WBCS (0.0-0.0); Neutrophils # (A) 5.48 X 10*3/uL (1.80-7.70); Neutrophils % (A) 70.4 %; Platelet Count 238 X 10*3/uL (140-440); RBC 3.67 X 10*6/uL (4.10-5.20); WBC 7.78 X 10*3/uL (4.50-10.00)
[2022-06-19 16:16] LABS: ALT 8 U/L (8-44); AST 14 U/L (13-35); African American GFR (CKD) 65.7 (60.0-200.0); Albumin 4.4 g/dL (3.8-4.9); Albumin/Globulin Ratio 1.61 (1.60-3.17); Alkaline Phosphatase 77 U/L (41-126); BUN/Creat Ratio 30.78 Ratio (12.00-20.00); Blood Urea Nitrogen 29.7 mg/dL (9.0-27.0); Calcium 9.1 mg/dL (8.7-10.3); Carbon Dioxide 25.8 mmol/L (20.0-27.5); Chloride 104 mmol/L (96-109); Globulin 2.8 g/dL (1.6-3.3); Glucose 110 mg/dL (70-110); Non-African American GFR(CKD) 56.7 (60.0-200.0); Potassium 4.4 mmol/L (3.5-5.5); Sodium 142 mmol/L (135-145); Total Protein 7.2 g/dL (6.2-8.2)
[2022-06-19 16:17] LABS: C Reactive Protein <0.30 mg/dL (0.00-0.80)
[2022-06-19 16:27] LABS: Erythrocyte Sedimentation Rate 16 mm/Hr (0-30)
== END | disposition home or self-care (01) ==
LOC: LABWHC1 10:17
PROVIDERS: ATTEND Family Medicine
DX: L89.213 Pressure ulcer of right hip, stage 3 (principal)
CPT/HCPCS: 36415; 80053; 85025; 85652; 86140

== ENCOUNTER → 2022-08-02 | Outpatient (CLI) | payer MEDICARE ==
[2022-08-02 15:54] LABS: Prealbumin 24.1 mg/dL (18.0-42.0)
[2022-08-02 16:10] LABS: % Iron Saturation 16.04 (12.00-45.00); ALT 12 U/L (8-44); AST 13 U/L (13-35); Albumin 4.6 d/dL (3.8-4.9); Albumin/Globulin Ratio 1.77 Ratio (1.60-3.17); Alkaline Phosphatase 78 U/L (41-126); BUN/Creat Ratio 28.33 Ratio (12.00-20.00); Blood Urea Nitrogen 25.5 mg/dL (9.0-27.0); C Reactive Protein <0.30 mg/dL (0.00-0.80); Calcium 9.4 mg/dL (8.7-10.3); Carbon Dioxide 24.4 mmol/L (21.6-31.8); Chloride 103 mmol/L (96-109); Ferritin 60.7 ng/mL (10.0-291.0); Globulin 2.6 d/dL (1.6-3.3); Glucose 121 mg/dL (70-110); Iron 64 UG/DL (50-170); Potassium 4.2 mmol/L (3.5-5.5); Sodium 141 mmol/L (135-145); Total Bilirubin 0.3 mg/dL (0.3-1.2); Total Iron Binding Capacity 399 UG/DL (228-460); Total Protein 7.2 d/dL (6.2-8.2)
[2022-08-02 20:12] LABS: Basophils # (A) 0.06 X 10*3/uL (0.00-0.10); Eosinophils # (A) 0.14 X 10*3/uL (0.04-0.35); Eosinophils % (A) 2.3 %; HCT 34.4 % (37.2-46.3); Lymphocytes # (A) 1.18 X 10*3/uL (0.90-5.00); Lymphocytes % (A) 19.7 %; MCH 29.9 pg (27.0-32.0); MCV 93.5 FL (80.0-97.0); Mean Platelet Volume 10.7 FL (9.5-12.2); Monocytes # (A) 0.65 X 10*3/uL (0.20-1.00); Monocytes % (A) 10.9 %; NRBC Per 100 WBC 0 X 10*3/uL (0.00-0.01); Neutrophils # (A) 3.95 X 10*3/uL (1.80-7.70); Neutrophils % (A) 65.9 %; Platelet Count 247 X 10*3/uL (140-440); RBC 3.68 X 10*6/uL (4.10-5.20); RDW 13.6 % (11.5-14.5); WBC 5.99 X 10*3/uL (4.50-10.00)
[2022-08-02 22:35] LABS: Erythrocyte Sedimentation Rate 22 mm/Hr (0-30)
== END | disposition home or self-care (01) ==
LOC: LABWHC1 10:55
PROVIDERS: ATTEND Internal Medicine
DX: I10 Essential (primary) hypertension (principal); I87.2 Venous insufficiency (chronic) (peripheral); I87.311 Chronic venous hypertension (idiopathic) with ulcer of right lower extremity; D64.9 Anemia, unspecified; L89.213 Pressure ulcer of right hip, stage 3; L97.312 Non-pressure chronic ulcer of right ankle with fat layer exposed; F20.0 Paranoid schizophrenia; G25.71 Drug induced akathisia; R54 Age-related physical debility
CPT/HCPCS: 36415; 80053; 82728; 83540; 83550; 84134; 85025; 85045; 85652; 86140

== ENCOUNTER → 2022-08-16 | Outpatient (CLI) | payer MEDICARE ==
--- NOTE | 2022-08-17 08:33 | MM ---
Reason for Exam: Screening (asymptomatic). Last mammogram was performed 2 year(s) and 7 month(s) ago. Patient History: Menarche at age 11. Patient has no children. Postmenopausal. Risk Values: Nuris 5 year model risk: 1.9%. NCI Lifetime model risk: 3.7%. Prior Study Comparison: 01/25/2020 Bilateral Screening Mammogram, [facility]. Tissue Density: The breast tissue is heterogeneously dense. This may lower the sensitivity of mammography. Findings: Analyzed By CAD. There is no suspicious group of microcalcifications or new suspicious mass in either breast. Overall Assessment: Benign, BI-RAD 2 Management: Screening Mammogram of both breasts in 1 year. . Patient should continue monthly self-breast exams. A clinical breast exam by your physician is recommended on an annual basis. This exam should not preclude additional follow-up of suspicious palpable abnormalities. Note on Nuris scores and lifetime risk: 1. A Nuris score greater than 3% is considered moderate risk. If this is the case, consider specialist referral to assess eligibility for a risk reducing agent. 2. If overall lifetime risk for the development of breast cancer is 20% or higher, the patient may qualify for future screening with alternating mammogram and breast MRI. Electronically signed and approved by: Sandip Medina M.D. Radiologis
== END | disposition home or self-care (01) ==
LOC: RADMAMWWP 09:03
PROVIDERS: ATTEND Internal Medicine
DX: Z12.31 Encounter for screening mammogram for malignant neoplasm of breast (principal); Z78.0 Asymptomatic menopausal state
CPT/HCPCS: 77063; 77067

== ENCOUNTER → 2022-08-29 | Outpatient (CLI) | payer MEDICARE ==
--- NOTE | 2022-08-29 14:50 | US ---
EXAMINATION TYPE: US venous doppler duplex LE DATE OF EXAM: 08/29/2022 1:59 PM COMPARISON: US 2022 CLINICAL INDICATION: Female, 76 years old with history of L97.312,I87.2 VENOUS INSU,I87.311CHRONIC VE NOUS HYPERTENSION; SIDE PERFORMED: Bilateral TECHNIQUE: The lower extremity deep venous system is examined utilizing real time linear array sonog radhika with graded compression, doppler sonography and color-flow sonography. VESSELS IMAGED: Common Femoral Vein Deep Femoral Vein Greater Saphenous Vein * Femoral Vein Popliteal Vein Small Saphenous Vein * Proximal Calf Veins (* superficial vessels) Difficult and limited study due to patient tremors Right Leg: Positive for DVT femoral vein and popliteal vein Left Leg: Appears negative for DVT IMPRESSION: 1. DVT right lower extremity as noted above. 2. No evidence for left-sided DVT at this time.
--- NOTE | 2022-08-29 15:03 | US ---
EXAMINATION TYPE: US arterial LE single level DATE OF EXAM: 08/29/2022 2:30 PM CLINICAL INDICATION: Female, 76 years old with history of L97.312,I87.2 VENOUS INSU,I87.311CHRONIC VE NOUS HYPERTENSION; History of: Smoker: No Hypertension: Yes Diabetic: No Hyperlipidemia: No TIA/CVA: No Previous Vascular Surgery: No Doppler Waveforms: Right: Multiphasic Left: Multiphasic Right Brachial Pressure: 155 Left Brachial Pressure: 150 Ankle-Brachial Indices: Right: 1.03 Left: 1.10 Toe Brachial Indices: Right: 0.94 Left: 0.89 IMPRESSION: 1. Normal MARKOS and TBI indices.
== END | disposition home or self-care (01) ==
LOC: RADUSWWP 12:53
PROVIDERS: ATTEND Family Medicine
DX: I87.311 Chronic venous hypertension (idiopathic) with ulcer of right lower extremity (principal); L97.312 Non-pressure chronic ulcer of right ankle with fat layer exposed
CPT/HCPCS: 93922; 93970

== ENCOUNTER → 2022-12-07 | Outpatient (CLI) | payer MEDICARE ==
[2022-12-08 02:21] LABS: Appearance,Urine Cloudy (Clear); Bilirubin,Urine Negative (Negative); Blood,Urine Negative (Negative); Color,Urine Yellow (Yellow); Ketones,Urine Negative (Negative); Nitrite,Urine Negative (Negative); PH, Urine 5.5; Specific Gravity,Urine 1.012 (1.001-1.030); Urobilinogen,Urine 0.2 E.U./DL
[2022-12-08 04:50] LABS: Bacteria,Urine None Seen (None Seen); Calcium Oxalate Crystals,Urine Present (None Seen)
== END | disposition home or self-care (01) ==
LOC: LABPRL 11:12
PROVIDERS: ATTEND Internal Medicine
DX: N39.0 Urinary tract infection, site not specified (principal)
CPT/HCPCS: 81001; 87086